=== PATIENT | female | born 1960 | race Caucasian/White ===

== ENCOUNTER → 2020-03-07 16:23 | Outpatient (BNVA) | payer OTHER, SELFPAY | PROVIDERS: PCP Nurse Practitioner Family; Visit Provider Internal Medicine | DX: J84.10 Pulmonary fibrosis, unspecified (principal); J44.9 Chronic obstructive pulmonary disease, unspecified; R91.1 Solitary pulmonary nodule; F17.200 Nicotine dependence, unspecified, uncomplicated; Z88.0 Allergy status to penicillin | CPT/HCPCS: 99212 ==

== ENCOUNTER 2020-03-08 15:25 | Outpatient (REF) | payer OTHER, SELFPAY ==
--- NOTE | 2020-03-08 15:29 | MM_ITS ---
EXAMINATION: MM SCREENING DIGITAL BREAST TOMOSYNTHESIS, BILATERAL CLINICAL INFORMATION: Screening. Asymptomatic. Family history breast cancer in maternal grandmother, 50. The lifetime risk of breast cancer based on the Tyrer-Cuzick Model is 9%. COMPARISON: Mammography: 08/15/2018, 08/11/2017 TECHNIQUE: Digital breast tomosynthesis is performed in both the craniocaudal and mediolateral oblique views along with computer-aided detection (CAD). Synthesized 2D images are generated from the tomosynthesis. Additional right MLO view is provided. FINDINGS: There are scattered areas of fibroglandular density (ACR BI-RADS breast composition Category b). There are no significant masses, abnormal calcifications, or other abnormalities. The axilla and skin contours are unremarkable. MM/MM tomosynthesis screening BI IMPRESSION: No mammographic evidence of malignancy. ASSESSMENT: BI-RADS 1: Negative RECOMMENDATION: Routine annual mammography screening. This patient's information was entered into a reminder system with a target due date for their next mammogram.
== END 2020-03-08 15:26 | disposition home or self-care (01) ==
LOC: HO.MAMMO 15:25
PROVIDERS: PCP Nurse Practitioner Family; Visit Provider Nurse Practitioner Family
DX: Z12.31 Encounter for screening mammogram for malignant neoplasm of breast (principal)
CPT/HCPCS: 77063; 77067

== ENCOUNTER 2020-03-11 14:43 | Outpatient (REF) | payer OTHER, SELFPAY ==
[2020-03-11 16:04] LABS: MANUAL DIFF FLAG NO
[2020-03-11 16:10] LABS: Basophils Absolute Auto 0.1 X10*3/uL (0.0-0.2); Basophils Percent Auto 0.9 % (0-2); Eosinophils Absolute Auto 0.2 X10*3/uL (0.0-0.4); Eosinophils Percent Auto 1.9 % (0-4); Hematocrit 36.1 % (37-47); Hemoglobin 11.7 g/dl (12.0-16.0); Imm Gran Abs Auto 0.02 X10*3/uL (0.00-0.03); Imm Gran Pct Auto 0.2 % (0.0-0.4); Lymphocytes Absolute Auto 2.9 X10*3/uL (1.2-4.9); Lymphocytes Percent Auto 33.7 % (20-40); Mean Corpuscular HGB Conc 32.4 g/dl (31.0-35.0); Mean Corpuscular Hemoglobin 30.7 pg (27.0-33.0); Mean Corpuscular Volume 94.8 fL (80-98); Mean Platelet Volume 8.7 fL (9.4-12.3); Monocytes Absolute Auto 0.5 X10*3/uL (0.1-1.2); Monocytes Percent Auto 6.1 % (2-11); Neutrophils Absolute Auto 4.9 X10*3/uL (2.0-8.3); Neutrophils Percent Auto 57.2 % (45-73); Platelet Count 320 X10*3/uL (160-400); Red Blood Count 3.81 X10*6/uL (4.20-5.50); Red Cell Distribution Width 13.4 % (11.0-16.0); White Blood Count 8.5 X10*3/uL (4.8-10.8)
[2020-03-11 16:32] LABS: Anion Gap 12 (12-20); Blood Urea Nitrogen 10 mg/dL (9-16); Calcium 9.6 mg/dL (8.4-10.2); Carbon Dioxide 29 mmol/L (22-29); Chloride 101 mmol/L (96-108); Estimated Glomerular Filt Rate 57; Glucose Fasting 109 mg/dL (60-99); Potassium 4.7 mmol/l (3.3-5.1); Sodium 137 mmol/L (135-145)
== END 2020-03-11 14:44 | disposition home or self-care (01) ==
LOC: HO.LAB 14:43
PROVIDERS: Visit Provider Nurse Practitioner Family
DX: F11.99 Opioid use, unspecified with unspecified opioid-induced disorder (principal); E22.2 Syndrome of inappropriate secretion of antidiuretic hormone; J44.9 Chronic obstructive pulmonary disease, unspecified
CPT/HCPCS: 36415; 80048; 80305; 85025; 99212

== ENCOUNTER 2020-04-09 15:57 | Outpatient (REF) | payer OTHER, SELFPAY ==
--- NOTE | 2020-04-09 15:59 | CT_ITS ---
EXAMINATION: CT CHEST WITHOUT CONTRAST CLINICAL INFORMATION: Follow-up small pulmonary nodules. COMPARISON: CT chest 02/24/2018. Ultrasound abdomen 10/05/2018 and TECHNIQUE: Multidetector volumetric CT imaging of the chest was done. Axial MIP volume rendering provided. Sagittal and coronal reformatted images were obtained. This CT examination was performed using dose optimization techniques as appropriate, variously including the following: *Automated exposure control *Adjustment of mA and/or kV according to patient size (this includes techniques or standardized protocols for targeted exams where dose is matched to indication/reason for exam; i.e. extremities or head) *Use of iterative reconstruction technique DLP: 110 mGy-cm FINDINGS: CLOSED CIRCUIT SCREEN WATCHER: Unremarkable. LUNGS: There is paraseptal emphysema without any acute consolidation. Again visualized are bilateral small pulmonary nodules. There are 3 mm two nodules adjacent to each other left lower lobe on axial image 38/4 which are stable. A 5 mm nodule within the left major fissure on axial image 260/7 is stable. No large or new nodules seen. MEDIASTINUM: The thyroid lobes are symmetrical and normal. The central trachea and bronchi widely patent. The heart size and great vessels are normal caliber. There is a 1.3 cm precarinal lymph node which is stable. There is no pericardial effusion. PLEURA: There is no pleural effusion. No pleural mass or thickening. AXILLA: No lymphadenopathy. UPPER ABDOMEN: Visualized spleen, pancreas and bilateral adrenal glands are unremarkable incidentally noted is a dilated common bile duct, incompletely visualized. It is more prominent than the last exam. OSSEOUS STRUCTURES: No lytic or sclerotic process seen. There is mild ventral spondylosis mid dorsal spine. CT/CT chest wo con IMPRESSION: Paraseptal emphysema and multiple bilateral small pulmonary nodules are stable. Small shotty lymph nodes in the mediastinum including 1.3 cm short axis precarinal lymph node appears stable. Prominent common bile duct partially visualized. A dilated CBD was seen on previous ultrasound exam 10/05/2018.
== END 2020-04-09 15:58 | disposition home or self-care (01) ==
LOC: HO.CT 15:57
PROVIDERS: Visit Provider Internal Medicine
DX: R91.8 Other nonspecific abnormal finding of lung field (principal); J84.10 Pulmonary fibrosis, unspecified; J44.9 Chronic obstructive pulmonary disease, unspecified
CPT/HCPCS: 71250

== ENCOUNTER → 2020-04-11 14:46 | Outpatient (BNVA) | payer OTHER, SELFPAY | PROVIDERS: PCP Nurse Practitioner Family; Referring Provider Nurse Practitioner Family; Visit Provider Internal Medicine Cardiovascular Disease | DX: I10 Essential (primary) hypertension (principal) | CPT/HCPCS: 93005; 99202 ==

== ENCOUNTER → 2020-05-07 15:29 | Outpatient (BNVA) | payer OTHER, SELFPAY | PROVIDERS: PCP Nurse Practitioner Family; Visit Provider Internal Medicine | DX: F11.20 Opioid dependence, uncomplicated (principal) | CPT/HCPCS: 80305; 99212 ==

== ENCOUNTER → 2020-07-09 15:12 | Outpatient (BNVA) | payer OTHER, SELFPAY | PROVIDERS: PCP Nurse Practitioner Family; Visit Provider Internal Medicine | DX: F11.99 Opioid use, unspecified with unspecified opioid-induced disorder (principal) | CPT/HCPCS: 80305; 99212 ==

== ENCOUNTER → 2020-09-03 14:48 | Outpatient (BNVA) | payer OTHER, SELFPAY | PROVIDERS: Visit Provider Internal Medicine | DX: F11.99 Opioid use, unspecified with unspecified opioid-induced disorder (principal) | CPT/HCPCS: 80305; 99212 ==

== ENCOUNTER → 2020-10-29 14:29 | Outpatient (BNVA) | payer OTHER, SELFPAY | PROVIDERS: Visit Provider Internal Medicine | DX: Z51.81 Encounter for therapeutic drug level monitoring (principal); F11.99 Opioid use, unspecified with unspecified opioid-induced disorder | CPT/HCPCS: 80305; 99212 ==

== ENCOUNTER → 2020-12-24 14:49 | Outpatient (BNVA) | payer OTHER, SELFPAY | PROVIDERS: PCP Internal Medicine; Visit Provider Internal Medicine | DX: Z51.81 Encounter for therapeutic drug level monitoring (principal); F11.90 Opioid use, unspecified, uncomplicated | CPT/HCPCS: 80305; 99212 ==

== ENCOUNTER 2021-01-31 14:02 | Outpatient (REF) | payer OTHER, SELFPAY ==
--- NOTE | ~2021-01-31 | MM_ITS ---
EXAMINATION: MM DIAGNOSTIC DIGITAL BREAST TOMOSYNTHESIS, BILATERAL Targeted left breast ultrasound CLINICAL INFORMATION: Mastodynia. Left breast lump 3:00 position 3 cm from nipple for one year The lifetime risk of breast cancer based on the Tyrer-Cuzick Model is 8.6%. COMPARISON: Mammography: March 08, 2020 and studies dating back to October 16, 2014 TECHNIQUE: Digital breast tomosynthesis is performed in both the craniocaudal and mediolateral oblique views along with computer-aided detection (CAD). Synthesized 2D images are generated from the tomosynthesis. Targeted left breast ultrasound FINDINGS: There are scattered areas of fibroglandular density (ACR BI-RADS breast composition Category b). There are no significant masses, abnormal calcifications, or other abnormalities. Targeted ultrasound evaluation of the left breast in region of palpable abnormality did not demonstrate any abnormal cystic or solid mass. No edematous changes seen. No abnormal distal sound shadowing identified. Results are discussed with the patient at time of visit. MM/MM tomosynthesis diagnostic BI IMPRESSION: There are no significant changes from prior study. No mammographic or ultrasound findings to suggest malignancy. ASSESSMENT: BI-RADS 1: Negative RECOMMENDATION: Routine annual mammography screening due in 12 months. Clinical management for palpable abnormality not seen on imaging. This patient's information was entered into a reminder system with a target due date for their next mammogram.
--- NOTE | ~2021-01-31 | US_ITS ---
EXAMINATION: US DIAGNOSTIC ULTRASOUND BREAST, LEFT CLINICAL INFORMATION: Left breast lump 6:00 position. COMPARISON: Mammography of same day and studies dating back to October 16, 2014. TECHNIQUE: Ultrasound of the breast is performed with real-time leon scale imaging and color Doppler. FINDINGS: There is no focal suspicious finding. There is no solid mass, architectural abnormality, duct ectasia, or edema in the soft tissue planes. Results are discussed with the patient at time of visit. US/US breast LT limited IMPRESSION: No mammographic or ultrasound findings to suggest malignancy. ASSESSMENT: BI-RADS 1: Negative RECOMMENDATION: Routine annual mammography screening due in 12 months. This patient's information was entered into a reminder system with a target due date for their next mammogram.
== END 2021-01-31 14:03 | disposition home or self-care (01) ==
LOC: HO.MAMMO 14:02
PROVIDERS: PCP Internal Medicine; Visit Provider Internal Medicine
DX: N64.4 Mastodynia (principal); N63.25 Unspecified lump in the left breast, overlapping quadrants
CPT/HCPCS: 76642; 77062; 77066

== ENCOUNTER → 2021-02-14 14:23 | Outpatient (BNVA) | payer OTHER, SELFPAY | PROVIDERS: Visit Provider Internal Medicine | DX: Z51.81 Encounter for therapeutic drug level monitoring (principal); F11.90 Opioid use, unspecified, uncomplicated | CPT/HCPCS: 80305; 99212 ==

== ENCOUNTER 2021-02-25 12:54 | Outpatient (REF) | payer OTHER, SELFPAY ==
--- NOTE | ~2021-02-25 | MM_ITS ---
EXAMINATION: BONE DENSITOMETRY CLINICAL INDICATION: Age-related osteoporosis without current pathological fracture. COMPARISON: Baseline BD dated 06/11/2015. TECHNIQUE: Using a Where DXA System (software version: 13.1) manufactured by [employer], dual-energy x-ray absorptiometry was performed of the spine and left hip. The images are of good technical quality. Summary results are attached. FINDINGS: AP SPINE L1-L4: Current: BMD 0.894 g/cm2, Z-score -0.9, T-score -2.4, osteopenia, 4.1% increase from baseline (<5% change is not significant). Baseline: BMD 0.859 g/cm2. LEFT FEMUR, NECK: Current: BMD 0.749 g/cm2, Z-score -0.7, T-score -2.1, osteopenia. Baseline: BMD 0.872 g/cm2. LEFT FEMUR, TOTAL: Current: BMD 0.744 g/cm2, Z-score -1.0, T-score -2.1, osteopenia, 9.8% decrease from baseline (<5% change is not significant). Baseline: BMD 0.825 g/cm2. IDENTIFIED RISK FACTORS: Osteoporosis, tobacco use (current smoker), family history (parental hip fracture), history of fracture (adult), menopause, right oophorectomy. HISTORY OF FRACTURE: Shoulder. MEDICATIONS: Vitamin D. MM/XR DEXA axial skeleton IMPRESSION: 1. DIAGNOSIS: Osteopenia based on the lowest T-score value of -2.4 in the lumbar spine applying World Health Organization criteria. 2. 10-YEAR FRACTURE RISK PREDICTION, FRAX: Major osteoporotic fracture (clinical spine, forearm, hip or shoulder) 31.5%. Hip fracture 4.6%. 3. Treatment Recommendations: NOF guidelines recommend consideration for treatment in postmenopausal women and men age 50 and older presenting with the following: -A hip or vertebral (clinical or morphometric) fracture. -T-score less than or equal to -2.5 at the femoral neck or spine after appropriate evaluation to exclude secondary causes. -Low bone mass at the hip or spine and a 10-year fracture probability by FRAX of greater than or equal to 3% for hip fracture or greater than or equal to 20% for major osteoporotic fracture based on the [place] adapted WHO algorithm. 4. Other Recommendations: All treatment decisions require clinical judgment and consideration of individual patient factors, including patient preferences, comorbidities, previous drug use, risk factors not captured in the FRAX model (e.g. frailty, falls, vitamin D deficiency, increased bone turnover, interval significant decline in bone density) and possible under or overestimation of fracture risk by FRAX. Additional medical evaluation for secondary cause of low bone mineral density may be appropriate. FUTURE SCAN RECOMMENDATION: People with diagnosed cases of osteoporosis or at high risk for fracture should have regular bone mineral density tests. For patients eligible for Medicare, routine testing is allowed once every 2 years. The testing frequency can be increased to one year for patients who have rapidly progressing disease, those who are receiving or discontinuing medical therapy to restore bone mass, or have additional risk factors.
== END 2021-02-25 12:55 | disposition home or self-care (01) ==
LOC: HO.MAMMO 12:54
PROVIDERS: Visit Provider Internal Medicine
DX: Z13.820 Encounter for screening for osteoporosis (principal); M81.0 Age-related osteoporosis without current pathological fracture; M85.80 Other specified disorders of bone density and structure, unspecified site; F17.200 Nicotine dependence, unspecified, uncomplicated; Z79.899 Other long term (current) drug therapy; Z78.0 Asymptomatic menopausal state
CPT/HCPCS: 77080

== ENCOUNTER 2021-04-11 14:16 | Outpatient (REF) | payer OTHER, SELFPAY ==
[2021-04-11 15:29] LABS: MANUAL DIFF FLAG NO
[2021-04-11 15:53] LABS: Basophils Absolute Auto 0.1 X10*3/uL (0.0-0.2); Basophils Percent Auto 0.7 % (0-2); Eosinophils Absolute Auto 0.1 X10*3/uL (0.0-0.4); Eosinophils Percent Auto 1.9 % (0-4); Hemoglobin 11.4 g/dl (12.0-16.0); Imm Gran Abs Auto 0.02 X10*3/uL (0.00-0.03); Imm Gran Pct Auto 0.3 % (0.0-0.4); Immature Retic Fraction 7.6 % (3.0-15.9); Lymphocytes Percent Auto 27.1 % (20-40); Mean Corpuscular HGB Conc 33.5 g/dl (31.0-35.0); Mean Corpuscular Hemoglobin 30.4 pg (27.0-33.0); Mean Corpuscular Volume 90.7 fL (80.0-98.0); Mean Platelet Volume 8.9 fL (9.4-12.3); Monocytes Absolute Auto 0.5 X10*3/uL (0.1-1.2); Monocytes Percent Auto 7.5 % (2-11); Neutrophils Absolute Auto 4.5 x10*3/uL (2.0-8.3); Neutrophils Percent Auto 62.5 % (45-73); Platelet Count 284 X10*3/uL (160-400); Red Blood Count 3.75 X10*6/uL (4.20-5.50); Red Cell Distribution Width 12.9 % (11.0-16.0); Retic HGB Equivalent 34.1 pg (30.0-35.0); Reticulocyte Percent 1.7 % (0.5-1.8); Reticulocytes Absolute 0.063 X10*6/uL (0.026-0.095); White Blood Count 7.2 X10*3/uL (4.8-10.8)
[2021-04-11 16:08] LABS: Estimated Average Glucose 111 mg/dL; Hemoglobin A1c % 5.5 %
[2021-04-11 16:17] LABS: Alanine Aminotransferase 22 U/L (0-31); Albumin Level 4.2 g/dL (3.5-5.0); Alkaline Phosphatase 69 U/L (39-117); Anion Gap 12 (12-20); Aspartate Amino Transferase 17 U/L (5-31); Bilirubin Total 0.3 mg/dL (0.0-1.0); Blood Urea Nitrogen 19 mg/dL (9-16); Calcium 9.7 mg/dL (8.4-10.2); Carbon Dioxide 26 mmol/L (22-29); Chloride 103 mmol/L (96-108); Cholesterol 264 mg/dL; Estimated Glomerular Filt Rate > 60; Glucose Random 116 mg/dL (60-115); HDL Cholesterol 54 mg/dL; Iron 61 mcg/dL (30-160); LDL Cholesterol Calculated 188 mg/dl; Magnesium 1.8 mg/dL (1.6-2.6); Percent Iron Saturation 19 % (15-50); Potassium 4.5 mmol/L (3.3-5.1); Sodium 136 mmol/L (135-145); Total Iron Binding Capacity 327 mcg/dL (228-428); Triglycerides 111 mg/dL; Unsaturated Iron Binding 266 ug/dL
[2021-04-11 16:40] LABS: Ferritin 82 ng/mL (10-250); Free T4 (Free Thyroxine) 1.29 ng/dL (0.71-1.85); Thyroid Stimulating Hormone 0.95 uIU/mL (0.32-4.0); Vitamin D 25-OH Total 30.5 ng/mL (>30)
[2021-04-11 17:01] LABS: Folate > 20.0 ng/mL (> or = 4.0); Vitamin B12 561 pg/mL (200-900)
== END 2021-04-11 14:17 | disposition home or self-care (01) ==
LOC: HO.LAB 14:16
PROVIDERS: Absent Provider Internal Medicine; PCP Internal Medicine; Visit Provider Internal Medicine
DX: E78.00 Pure hypercholesterolemia, unspecified (principal); K21.9 Gastro-esophageal reflux disease without esophagitis; F17.210 Nicotine dependence, cigarettes, uncomplicated; F11.20 Opioid dependence, uncomplicated; Z51.81 Encounter for therapeutic drug level monitoring
CPT/HCPCS: 36415; 80053; 80061; 80305; 82306; 82607; 82728; 82746; 83036; 83540; 83735; 84439; 84443; 85025; 85045; 99212

== ENCOUNTER 2021-05-26 17:44 | Outpatient (REF) | payer OTHER, SELFPAY ==
[2021-05-27 05:40] LABS: CT PCR NOT DETECTED (Not Detect.); NG PCR NOT DETECTED (Not Detect.)
[2021-05-27 09:06] LABS: BV Int Neg Control Negative (Negative); BV Int Pos Control Positive (Positive)
[2021-05-30 13:37] LABS: HPV mRNA E6/E7 rflx Not Detected (Not Detected)
== END 2021-05-26 17:45 | disposition home or self-care (01) ==
LOC: HO.LAB 17:44
PROVIDERS: Visit Provider Internal Medicine
DX: Z12.4 Encounter for screening for malignant neoplasm of cervix (principal); Z11.51 Encounter for screening for human papillomavirus (HPV)
CPT/HCPCS: 87480; 87491; 87510; 87591; 87624; 87660; 88142

== ENCOUNTER → 2021-06-16 14:29 | Outpatient (BNVA) | payer OTHER, SELFPAY | PROVIDERS: Visit Provider Internal Medicine | DX: F11.20 Opioid dependence, uncomplicated (principal) | CPT/HCPCS: 80305; 99212 ==

== ENCOUNTER 2021-08-11 13:58 | Outpatient (REF) | payer OTHER, SELFPAY ==
[2021-08-11 15:09] LABS: Anion Gap 9 (12-20); Blood Urea Nitrogen 21 mg/dL (9-16); Calcium 10.5 mg/dL (8.4-10.2); Carbon Dioxide 27 mmol/L (22-29); Chloride 106 mmol/L (96-108); Estimated Glomerular Filt Rate > 60; Glucose Random 116 mg/dL (60-115); Potassium 4.7 mmol/L (3.3-5.1); Sodium 137 mmol/L (135-145)
== END 2021-08-11 13:59 | disposition home or self-care (01) ==
LOC: HO.LAB 13:58
PROVIDERS: PCP Internal Medicine; Visit Provider Psychiatry & Neurology Neurology
DX: F11.20 Opioid dependence, uncomplicated (principal); D35.2 Benign neoplasm of pituitary gland
CPT/HCPCS: 36415; 80048; 80305; 99212

== ENCOUNTER 2021-08-15 13:12 | Outpatient (REF) | payer OTHER, SELFPAY ==
--- NOTE | ~2021-08-15 | MR_ITS ---
MR BRAIN WITHOUT AND WITH CONTRAST CLINICAL INFORMATION: Pituitary adenoma. COMPARISON: Brain MRI February 04, 2018. TECHNIQUE: Multiplanar, multisequence MRI of the brain was obtained before and after the intravenous administration of 3 mL of Gadavist. FINDINGS: There is a 1.1 cm CC by 1 cm TV by 1.1 cm AP mixed hypoenhancing and hyperenhancing lesion within the left aspect of the pituitary gland, likely similar to the February 04, 2018 brain MRI accounting for technical differences. There is also a stable 4 mm hypoenhancing lesion at the junction of the infundibulum and pituitary gland. Infundibulum remains slightly deviated to the right side. No mass effect on the optic nerve apparatus. No cavernous sinus invasion. There is progressive moderate chronic microangiopathy. 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 There is no hydrocephalus, extra-axial surface collection, or herniation. The major flow voids at the skull base are preserved. There is no acute infarct on diffusion-weighted imaging. The cerebellar tonsils are normally positioned. The cerebellum and brainstem are normal. The craniocervical junction is normal. Osseous marrow signal intensity is homogenous. The visualized soft tissues are unremarkable. 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 An additional 0.4 cm hypoenhancing lesion at the junction of the infundibulum and pituitary gland is also unchanged. No mass effect on the optic nerve apparatus. - There is progressive moderate chronic microangiopathy. 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
[2021-08-15 14:37] LABS: Alanine Aminotransferase 18 U/L (0-31); Albumin Level 4.1 g/dL (3.5-5.0); Alkaline Phosphatase 64 U/L (39-117); Anion Gap 10 (12-20); Aspartate Amino Transferase 20 U/L (5-31); Bilirubin Total 0.4 mg/dL (0.0-1.0); Blood Urea Nitrogen 18 mg/dL (9-16); Calcium 10.3 mg/dL (8.4-10.2); Carbon Dioxide 28 mmol/L (22-29); Chloride 103 mmol/L (96-108); Cholesterol 272 mg/dL; Estimated Glomerular Filt Rate 50; Glucose Random 127 mg/dL (60-115); HDL Cholesterol 51 mg/dL; LDL Cholesterol Calculated 201 mg/dl; Potassium 4.8 mmol/L (3.3-5.1); Sodium 136 mmol/L (135-145); Triglycerides 101 mg/dL
== END 2021-08-15 13:13 | disposition home or self-care (01) ==
LOC: HO.MRI 13:12
PROVIDERS: PCP Internal Medicine; Visit Provider Psychiatry & Neurology Neurology
DX: D35.2 Benign neoplasm of pituitary gland (principal); R73.01 Impaired fasting glucose; E78.00 Pure hypercholesterolemia, unspecified
CPT/HCPCS: 36415; 70553; 80053; 80061; A9585

== ENCOUNTER 2021-08-27 14:34 | Outpatient (REF) | payer OTHER, SELFPAY ==
[2021-08-29 02:26] LABS: Prolactin 9.7 ng/mL
== END 2021-08-27 14:35 | disposition home or self-care (01) ==
LOC: HO.LAB 14:34
PROVIDERS: PCP Internal Medicine; Visit Provider Psychiatry & Neurology Neurology
DX: D35.2 Benign neoplasm of pituitary gland (principal)
CPT/HCPCS: 36415; 84146

== ENCOUNTER → 2021-10-03 14:10 | Outpatient (BNVA) | payer OTHER, SELFPAY | PROVIDERS: Visit Provider Internal Medicine | DX: Z51.81 Encounter for therapeutic drug level monitoring (principal); F11.20 Opioid dependence, uncomplicated | CPT/HCPCS: 80305; 99212 ==

== ENCOUNTER → 2021-11-28 14:08 | Outpatient (BNVA) | payer OTHER, SELFPAY | PROVIDERS: Visit Provider Internal Medicine | DX: Z51.81 Encounter for therapeutic drug level monitoring (principal); F11.20 Opioid dependence, uncomplicated | CPT/HCPCS: 80305; 99212 ==

== ENCOUNTER 2022-01-27 15:06 | Outpatient (REF) | payer OTHER, SELFPAY ==
[2022-01-27 16:33] LABS: Estimated Average Glucose 111 mg/dL; Hemoglobin A1c % 5.5 %
[2022-01-27 16:43] LABS: Alanine Aminotransferase 16 U/L (0-31); Albumin Level 4.2 g/dL (3.5-5.0); Alkaline Phosphatase 71 U/L (39-117); Anion Gap 14 (12-20); Aspartate Amino Transferase 16 U/L (5-31); Bilirubin Total 0.2 mg/dL (0.0-1.0); Blood Urea Nitrogen 26 mg/dL (9-16); Calcium 9.6 mg/dL (8.4-10.2); Carbon Dioxide 26 mmol/L (22-29); Chloride 106 mmol/L (96-108); Cholesterol 203 mg/dL; Estimated Glomerular Filt Rate > 60; Glucose Random 95 mg/dL (60-115); HDL Cholesterol 60 mg/dL; LDL Cholesterol Calculated 131 mg/dl; Potassium 4.9 mmol/L (3.3-5.1); Sodium 141 mmol/L (135-145); Total Protein 6.8 g/dL (6.5-8.0); Triglycerides 64 mg/dL
[2022-01-27 17:04] LABS: Free T4 (Free Thyroxine) 1.11 ng/dL (0.71-1.85); Thyroid Stimulating Hormone 0.88 uIU/mL (0.32-4.0)
== END 2022-01-27 15:07 | disposition home or self-care (01) ==
LOC: HO.LAB 15:06
PROVIDERS: PCP Internal Medicine; Visit Provider Internal Medicine
DX: F11.20 Opioid dependence, uncomplicated (principal); E78.00 Pure hypercholesterolemia, unspecified; R73.09 Other abnormal glucose; Z51.81 Encounter for therapeutic drug level monitoring; Z79.899 Other long term (current) drug therapy
CPT/HCPCS: 36415; 80053; 80061; 80305; 83036; 84439; 84443; 99212

== ENCOUNTER → 2022-03-30 13:49 | Outpatient (BNVA) | payer OTHER, SELFPAY | PROVIDERS: PCP Internal Medicine; Visit Provider Internal Medicine | DX: Z51.81 Encounter for therapeutic drug level monitoring (principal); F11.20 Opioid dependence, uncomplicated | CPT/HCPCS: 99212 ==

== ENCOUNTER → 2022-05-25 13:08 | Outpatient (BNVA) | payer OTHER, SELFPAY | PROVIDERS: PCP Internal Medicine; Visit Provider Nurse Practitioner Psychiatric/Mental Health | DX: Z51.81 Encounter for therapeutic drug level monitoring (principal); F11.20 Opioid dependence, uncomplicated | CPT/HCPCS: 80305; 99212 ==

== ENCOUNTER → 2022-07-22 12:51 | Outpatient (BNVA) | payer OTHER, SELFPAY | PROVIDERS: PCP Internal Medicine; Visit Provider Nurse Practitioner Psychiatric/Mental Health | DX: Z51.81 Encounter for therapeutic drug level monitoring (principal); F11.20 Opioid dependence, uncomplicated | CPT/HCPCS: 80305; 99212 ==

== ENCOUNTER → 2022-09-16 14:12 | Outpatient (BNVA) | payer OTHER, SELFPAY | PROVIDERS: PCP Internal Medicine; Visit Provider Nurse Practitioner Psychiatric/Mental Health | DX: Z51.81 Encounter for therapeutic drug level monitoring (principal); F11.20 Opioid dependence, uncomplicated | CPT/HCPCS: 80305; 99212 ==

== ENCOUNTER 2022-10-09 15:01 | Outpatient (REF) | payer OTHER, SELFPAY ==
--- NOTE | ~2022-10-09 | XR_ITS ---
EXAMINATION: XR SHOULDER, RIGHT CLINICAL INFORMATION: Pain COMPARISON: None available. TECHNIQUE: AP external rotation, Grashey, scapular Y, and axillary views of the right shoulder. FINDINGS: Bone alignment is normal. No fracture or dislocation. Mild arthritis at the glenohumeral joint with small osteophytes. The acromioclavicular joint is normal. Soft tissues are normal. XR/XR shoulder RT min 2V IMPRESSION: Mild arthritis at the glenohumeral joint.
[2022-10-09 15:15] LABS: MANUAL DIFF FLAG NO
[2022-10-09 15:35] LABS: Basophils Absolute Auto 0.1 X10*3/uL (0.0-0.2); Basophils Percent Auto 0.9 % (0-2); Eosinophils Absolute Auto 0.2 X10*3/uL (0.0-0.4); Eosinophils Percent Auto 3.1 % (0-4); Imm Gran Abs Auto 0.02 X10*3/uL (0.00-0.03); Imm Gran Pct Auto 0.3 % (0.0-0.4); Immature Retic Fraction 9.4 % (3.0-15.9); Lymphocytes Absolute Auto 2.6 X10*3/uL (1.2-4.9); Lymphocytes Percent Auto 34.8 % (20-40); Mean Corpuscular HGB Conc 32.4 g/dl (31.0-35.0); Mean Corpuscular Hemoglobin 29.9 pg (27.0-33.0); Mean Corpuscular Volume 92.3 fL (80.0-98.0); Mean Platelet Volume 9.3 fL (9.4-12.3); Monocytes Absolute Auto 0.6 X10*3/uL (0.1-1.2); Monocytes Percent Auto 8.5 % (2-11); Neutrophils Absolute Auto 3.9 x10*3/uL (2.0-8.3); Neutrophils Percent Auto 52.4 % (45-73); Platelet Count 314 X10*3/uL (160-400); Red Blood Count 4.01 X10*6/uL (4.20-5.50); Red Cell Distribution Width 14.3 % (11.0-16.0); Retic HGB Equivalent 35.6 pg (30.0-35.0); Reticulocyte Percent 1.5 % (0.5-1.8); Reticulocytes Absolute 0.062 X10*6/uL (0.026-0.095); White Blood Count 7.4 X10*3/uL (4.8-10.8)
[2022-10-09 15:48] LABS: Estimated Average Glucose 111 mg/dL; Hemoglobin A1c % 5.5 %
[2022-10-09 16:06] LABS: Alanine Aminotransferase 16 U/L (0-31); Albumin Level 4.1 g/dL (3.5-5.0); Alkaline Phosphatase 69 U/L (39-117); Anion Gap 13 (12-20); Aspartate Amino Transferase 17 U/L (5-31); Bilirubin Total 0.5 mg/dL (0.0-1.0); Blood Urea Nitrogen 24 mg/dL (9-16); Calcium 10.2 mg/dL (8.4-10.2); Carbon Dioxide 21 mmol/L (22-29); Chloride 109 mmol/L (96-108); Cholesterol 196 mg/dL; Estimated Glomerular Filt Rate > 60; Glucose Random 120 mg/dL (60-115); HDL Cholesterol 58 mg/dL; Iron 93 mcg/dL (30-160); LDL Cholesterol Calculated 125 mg/dl; Percent Iron Saturation 33 % (15-50); Potassium 4.8 mmol/L (3.3-5.1); Sodium 138 mmol/L (135-145); Total Iron Binding Capacity 280 mcg/dL (228-428); Total Protein 6.8 g/dL (6.5-8.0); Triglycerides 66 mg/dL; Unsaturated Iron Binding 187 ug/dL
[2022-10-09 16:34] LABS: Folate 10.2 ng/mL (> or = 4.0); Thyroid Stimulating Hormone 1.09 uIU/mL (0.32-4.0); Vitamin B12 469 pg/mL (200-900)
== END 2022-10-09 15:02 | disposition home or self-care (01) ==
LOC: HO.XRAY 15:01
PROVIDERS: PCP Internal Medicine; Visit Provider Internal Medicine
DX: M25.511 Pain in right shoulder (principal); R73.01 Impaired fasting glucose; K21.9 Gastro-esophageal reflux disease without esophagitis; E78.00 Pure hypercholesterolemia, unspecified
CPT/HCPCS: 36415; 73030; 80053; 80061; 82607; 82746; 83036; 83540; 84443; 85025; 85045

== ENCOUNTER → 2022-11-09 14:03 | Outpatient (BNVA) | payer OTHER, SELFPAY | PROVIDERS: PCP Internal Medicine; Visit Provider Nurse Practitioner Psychiatric/Mental Health | DX: Z51.81 Encounter for therapeutic drug level monitoring (principal); F11.20 Opioid dependence, uncomplicated | CPT/HCPCS: 99212 ==

== ENCOUNTER 2022-12-16 14:19 | Outpatient (AMB) | payer OTHER, SELFPAY ==
--- NOTE | 2022-12-16 14:21 | A.OFFVIS_ITS ---
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 She describes her pains as sharp and severe in nature. Her pains have gotten worse over the last few years in spite of continued non operative treatments. The patient states that her neck pain will radiate down her right arm to her right hand. She also reports weakness in her right upper extremity. She has done physical therapy for 12 weeks over the last 6 months which aggravated her symptoms. She has also tried Tylenol and anti-inflammatory medicines which gave her minimal relief. Allergies penicillin G [PENICILLIN G] Allergy (Unknown, Verified 12/16/22 14:25) [facility] Medical History Abnormal blood sugar Abnormal EKG ADH disorder Anxiety and depression Breast mass, left Breast pain, right Cervical cancer screening COPD (chronic obstructive pulmonary disease) Ear abrasion Hemorrhoid Hypercholesterolemia Left ear pain Nail fungus Onychomycosis Opioid use disorder Osteoarthritis, hip, bilateral Pulmonary fibrosis Pulmonary nodules/lesions, multiple Vitamin D deficiency Surgical History History of section History of vocal cord polypectomy Hx of removal of ovary Family History Father Stroke Mother Hypertension Heart problem Stroke DDD (degenerative disc disease) Brother Heart attack Social History Housing: House Alcohol intake: current Patient Tobacco Use Status: Current everyday Tobacco user Tobacco use type: Cigarette Cigarettes Per Day: 10 e-Cigarette/Vaping Use: Never Used Second Hand Smoke Exposure: Yes service: No Current occupational status: disabled Cognitive needs: No Hearing needs: No Vision needs: Yes Physical Exam Vital Signs: BMI result Body Mass Index 25.0 Neck Other: Cervical spine examination shows right-sided paraspinal muscle tenderness, pain with range of motion, positive Spurling's test, 4/5 strength with testing of her right biceps muscle when compared to 5/5 strength on her left side Extrem Other: Right shoulder examination shows decreased range of motion when compared to her left shoulder, pain with range of motion, 4+ out of 5 strength with supraspinatus testing, positive impingement signs, tenderness over her acromioclavicular joint, no instability Office Procedures Joint Injection/Drain Joint Injection/Drain Primary Site: right shoulder Prep: site was prepped using aseptic technique Injected: 40 mg of, Kenalog and 1% plain lidocaine Procedure: The patient tolerated the procedure well Coding 25274 - Large joint Procedure code (CPT) selection complete Results Reviewed Results Reviewed: 12/16/22 15:10 Lidocaine HCl 2 % MPF [Xylocaine 2 % MPF] 5 ml .ROUTE .STK-MED ONE Triamcinolone Acetonide [Kenalog-40] 40 mg .ROUTE .STK-MED ONE X-rays of the patient's right shoulder show mild to moderate glenohumeral joint degenerative changes, a type 2 acromion, no acute bony abnormalities Assessment & Plan Assessment & Plan (1) Neck pain: Code(s): M54.2 - Cervicalgia (2) Impingement of right shoulder: Code(s): M25.811 - Other specified joint disorders, right shoulder Plan Ms. Brock presents with progressively worsening cervical spine pain with associated right upper extremity weakness possibly due to cervical stenosis or disc herniation. Thus, I will send her for an MRI of her cervical spine for further evaluation. She will contact me prior to the imaging study should her symptoms worsen in any way. The patient also has right shoulder pain due to impingement syndrome and glenohumeral joint arthritis. I had a lengthy discussion with the patient regarding the treatment options. She wishes to hold off on surgery for as long as possible. The risks and benefits of a right shoulder cortisone injection were discussed at length with the patient. The patient wished to proceed. She tolerated the injection well. She will continue with her home stretching program to prevent stiffness. Feel free to call me at any time should questions regarding her orthopedic management arise. Thank you very much for asking me to see this very friendly patient. I spent 23 minutes in reviewing the patient's records and imaging studies, seeing the patient and documenting in the medical record. Orders: Orders MR cervical spine wo con 12/16/22 M54.2 - Cervicalgia AMB Joint Injection/Aspiration 12/16/22 M25.811 - Other specified joint disorders, right shoulder Coding Level of Care Code New Pt Level 2 (26501) Diagnoses Neck pain M54.2 Impingement of right shoulder M25.811 CPT Codes Coding - 97003 Large joint: 67217 - Large joint ([id number])
[2022-12-16 14:23] VITALS: BMI 25.0
== END 2022-12-16 15:20 | disposition home or self-care (01) ==
PROVIDERS: PCP Internal Medicine; Visit Provider Orthopaedic Surgery
DX: M54.2 Cervicalgia (principal); M25.811 Other specified joint disorders, right shoulder; M75.41 Impingement syndrome of right shoulder
CPT/HCPCS: 20610; 99204; 99213

== ENCOUNTER → 2022-12-16 14:19 | Outpatient (BNVA) | payer OTHER, SELFPAY | PROVIDERS: PCP Internal Medicine; Visit Provider Orthopaedic Surgery | DX: M25.811 Other specified joint disorders, right shoulder (principal); M54.2 Cervicalgia | CPT/HCPCS: 20610; 99212; J3301 ==

== ENCOUNTER 2023-02-03 14:36 | Outpatient (AMB) | payer OTHER, SELFPAY ==
[2023-02-03 14:41] VITALS: BP 106/78; PULSE 93; O2SAT 97
--- NOTE | 2023-02-03 14:41 | MHC.OFFVIS ---
Intake Vital Signs 02/03/23 14:41 BP 106/78 Blood Pressure Location Lt radial Position Sitting Pulse 93 Pulse Source Pulse Oximeter Pulse Oximetry (%) 97 Oxygen Delivery Method Room Air Intake Visit Reasons: mat visit Intake Note: the patient presents for a mat visit Chief Medical Officer Required: No Allergies penicillin G [PENICILLIN G] Allergy (Unknown, Verified 02/03/23 14:42) [facility] Do you need a note to return to daycare/school/sports/work: No HPI mat visit HPI Details Patient presents for follow up Sad affect, had to put her dog down on Wednesday Otherwise doing well. Doing well with current suoxone dose. No questions or concerns at this time [facility] Medical History Abnormal blood sugar Abnormal EKG ADH disorder Anxiety and depression Breast mass, left Breast pain, right Cervical cancer screening COPD (chronic obstructive pulmonary disease) Ear abrasion Hemorrhoid Hypercholesterolemia Left ear pain Nail fungus Onychomycosis Opioid use disorder Osteoarthritis, hip, bilateral Pulmonary fibrosis Pulmonary nodules/lesions, multiple Vitamin D deficiency Surgical History History of section History of vocal cord polypectomy Hx of removal of ovary Family History Father Stroke Mother Hypertension Heart problem Stroke DDD (degenerative disc disease) Brother Heart attack Social History Housing: House Alcohol intake: current Patient Tobacco Use Status: Current everyday Tobacco user Tobacco use type: Cigarette Cigarettes Per Day: 10 e-Cigarette/Vaping Use: Never Used Second Hand Smoke Exposure: Yes service: No Current occupational status: disabled Cognitive needs: No Hearing needs: No Vision needs: Yes Review of Systems Const Reports as per HPI and Reports no additional complaints Physical Exam Vital Signs: Last Vital Signs Pulse 93 02/03/23 14:41 BP 106/78 02/03/23 14:41 Pulse Ox 97 02/03/23 14:41 Oxygen Delivery Method Room Air 02/03/23 14:41 Const General: cooperative, no acute distress and alert Nutritional Appearance: average body habitus Orientation/consciousness: patient oriented x3 Limitations: no limitations Neuro General: patient oriented x3 Psych Appearance: grossly normal Mental Status: mental status grossly normal Speech and movement: Normal speech and movement present Affect: normal affect Attitude: cooperative Thought process: Normal thought process present Thought content: Normal thought content present Insight: Good insight present (Psych) Judgement: Good judgement present (Psych) Assessment & Plan Assessment & Plan (1) Opioid use disorder: Code(s): F11.99 - Opioid use, unspecified with unspecified opioid-induced disorder Plan: continue suboxone at current dose follow up 3 months Medications: Refilled buprenorphine-naloxone 8-2 mg (Suboxone) 1 film sublingual TID 90 ea 2RF 30 days Coding Level of Care Code Est Pt Level 3 (88450) Diagnoses Opioid use disorder F11.99
== END 2023-02-03 15:23 | disposition home or self-care (01) ==
LOC: HO.HCC 14:36
PROVIDERS: PCP Internal Medicine; Visit Provider Nurse Practitioner Psychiatric/Mental Health
DX: F11.99 Opioid use, unspecified with unspecified opioid-induced disorder (principal)
CPT/HCPCS: 99213

== ENCOUNTER → 2023-02-03 14:36 | Outpatient (BNVA) | payer OTHER, SELFPAY | PROVIDERS: PCP Internal Medicine; Visit Provider Nurse Practitioner Psychiatric/Mental Health | DX: F11.20 Opioid dependence, uncomplicated (principal); F17.210 Nicotine dependence, cigarettes, uncomplicated; Z51.81 Encounter for therapeutic drug level monitoring; Z79.899 Other long term (current) drug therapy | CPT/HCPCS: 99212 ==

== ENCOUNTER 2023-02-12 13:52 | Outpatient (AMB) | payer OTHER, SELFPAY ==
[2023-02-12 13:56] VITALS: BP 152/90; PULSE 88; O2SAT 96; BMI 25.4
--- NOTE | 2023-02-12 13:56 | A.OFFPC_ITS ---
Vital Signs 02/12/23 13:56 02/12/23 14:16 Height 5 ft Weight 130 lb BMI 25.4 BP 152/90 H 138/84 Blood Pressure Location Lt brachial Lt brachial Position Sitting Sitting Pulse 88 Pulse Source Pulse Oximeter Temp Source Skin Pulse Oximetry (%) 96 Oxygen Delivery Method Room Air Intake Visit Reasons: Missed appt 02/11/[address] Chris Intake Note: Patient is here to follow up Disability Rater Required: No Allergies penicillin G [PENICILLIN G] Allergy (Unknown, Verified 02/12/23 14:06) RASH Medication List - Last Reconciled 02/12/23 by JUANIS Silveira albuterol sulfate 90 mcg/actuation (ProAir HFA) 2 puffs inhalation Q4-6H PRN 30 days alprazolam 1 mg PO DAILY PRN atorvastatin 40 mg PO DAILY 90 days blood sugar diagnostic (FreeStyle Lite Strips) As directed check the BS QD blood-glucose meter (FreeStyle Lite Meter kit) As directed buprenorphine-naloxone 8-2 mg (Suboxone) 1 film sublingual TID 30 days cholecalciferol (vitamin D3) 25 mcg PO DAILY dextroamphetamine-amphetamine 20 mg (Adderall) 20 mg PO BID fexofenadine (Vanessa Allergy) 180 mg PO DAILY fluticasone propionate 50 mcg/actuation (Flonase Allergy Relief) 2 sprays intranasal DAILY hydrocortisone 2.5% (Proctosol HC) 1 appl HI BID-QID PRN hydrocortisone 2.5% (Proctosol HC) 1 appl HI BID-QID PRN hydroxyzine HCl 100 mg PO BEDTIME labetalol 100 mg PO BID 90 days lancets (FreeStyle Lancets) As directed check BS QD lidocaine 4% (Aspercreme (lidocaine)) 1 patch topical DAILY PRN lisinopril 5 mg PO DAILY nicotine (polacrilex) 2 mg buccal Q2H omeprazole 20 mg PO DAILY 90 days terbinafine HCl 250 mg PO DAILY 12 weeks trazodone 200 mg PO BEDTIME Tobacco use date assessed: 02/12/23 Dental Screening Dental Screen Date: 02/12/23 Did you have a dental visit in the last 12 months?: No Did you have a dental problem in the last 6 months where you did not have access to dental care?: No HPI Missed appt 02/11/[address] Chris HPI Details Patient is a 63-year-old female who presents today to follow-up on cholesterol and impaired glucose tolerance. Patient of Dr. Chris. Medical history significant for COPD ADH disorder-followed by Psychiatry, opioid use disorder- followed by comprehensive care clinic on Suboxone, hypercholesterolemia, tobacco abuse, GERD, anxiety, right shoulder pain - patient reports that her insurance will not cover lidocaine patch 4% and she would like to have lidocaine patch 5% instead. Patient reports that she is compliant with medications. Patient denies shortness of breath or chest pain. Patient reports worse acid reflux at night, GERD is not stable with omeprazole daily in the morning. Patient reports that she also went to wounds and she did see a lesion on her abdomen, she did not see tick would like Lyme disease blood work. [facility] Medical History Left ear pain Abnormal blood sugar Ear abrasion Cervical cancer screening Breast pain, right Breast mass, left Hemorrhoid Onychomycosis Osteoarthritis, hip, bilateral Vitamin D deficiency Anxiety and depression Hypercholesterolemia Opioid use disorder Abnormal EKG Nail fungus ADH disorder Pulmonary nodules/lesions, multiple Pulmonary fibrosis COPD (chronic obstructive pulmonary disease) Surgical History History of vocal cord polypectomy Hx of removal of ovary History of section Family History Father Stroke Mother Hypertension Heart problem Stroke DDD (degenerative disc disease) Brother Heart attack Social History Housing: House Alcohol intake: current Patient Tobacco Use Status: Current everyday Tobacco user Tobacco use type: Cigarette Cigarettes Per Day: 10 e-Cigarette/Vaping Use: Never Used Second Hand Smoke Exposure: Yes service: No Current occupational status: disabled Cognitive needs: No Hearing needs: No Vision needs: Yes Questionnaire Thrive Questionnaire Date Thrive assessed: 07/09/22 AUDIT C Alcohol Use Questionnaire (AUDIT-C) 1. How often do you have a drink containing alcohol?: Monthly or less 2. How many drinks containing alcohol do you have on a typical day when you are drinking?: 1 or 2 3. How often do you have six or more drinks on one occasion?: Never Total Score: 1 Score Reviewed/Action Taken: No ALBERTO-7 AMB Questionnaire ALBERTO-7 Date ALBERTO - 7 assessed: 07/09/22 Source: Developed by Drs. Dean Real, Shireen Godfrey, Mj Zuñiga and colleagues, with an educational ramón from [employer]. Review of Systems Const Denies body aches, Denies chills, Denies fever(s) and Denies headache(s) Eyes Denies change in vision ENT Denies dizziness, Denies otalgia, Denies headache(s), Denies nasal discharge, Denies sinus pain and Denies sore throat Card Denies chest pain, Denies edema, Denies lightheadedness and Denies dyspnea Resp Denies cough and Denies dyspnea GI Denies constipation, Reports heartburn, Denies diarrhea, Denies nausea and Denies vomiting Denies dysuria Musc Reports as per HPI, Reports back pain, Denies myalgias and Reports arthralgias Skin/Breast Reports lesions and Denies rash Neuro Denies dizziness and Denies headache(s) Physical exam (Primary Care) Vital Signs: Last Vital Signs Pulse 88 02/12/23 13:56 BP 138/84 02/12/23 14:16 Pulse Ox 96 02/12/23 13:56 Oxygen Delivery Method Room Air 02/12/23 13:56 BMI result Body Mass Index 25.4 Tobacco/Smoking Status: Tobacco use Status Tobacco use date assessed 02/12/23 02/12/23 13:57 Patient Tobacco Use Status Current everyday Tobacco 02/12/23 13:57 Tobacco use type Cigarette 02/12/23 13:57 e-Cigarette/Vaping Use Never Used 02/12/23 13:57 Thrive Assessment: Date of Thrive Assessment Date Thrive assessed 07/09/22 02/12/23 13:57 Const General: cooperative and no acute distress Orientation/consciousness: patient oriented x3 HENMT Head: Yes normocephalic and Yes atraumatic Mouth: oropharynx normal and moist mucous membranes Throat: Yes posterior oropharynx normal Eyes General: appearance normal, both eyes and all related structures Neck Neck: Yes normal visual inspection, Yes full ROM and Yes no lymphadenopathy Resp Effort & Inspection: normal respiratory effort and able to speak in complete sentences Auscultation: clear to auscultation bilaterally, no crackles, no rales, no rhonchi and no wheezes Cardio Rate: regular rate Rhythm: regular rhythm Heart sounds: S1 normal heart sound present and S2 normal heart sound present GI Auscultation: normal bowel sounds Skin Other: Left abdomen small flat lesion noted about 5-7mm, slightly erythematous Neuro General: patient oriented x3 Gait exam (Neuro): Normal gait present Extrem General: Yes full ROM and No edema Assessment and Plan Assessment & Plan (1) Mid back pain: Code(s): M54.9 - Dorsalgia, unspecified Plan: Last time lidocaine patch 4% was sent insurance would not cover this, patient requesting lidocaine patch 5%, prescription sent (2) Shoulder pain, right: Code(s): M25.511 - Pain in right shoulder Plan: Same as above (3) Impaired fasting blood sugar: Code(s): R73.01 - Impaired fasting glucose Plan: A1c 5.5 10/2022 Continue to monitor (4) Hypertension: Code(s): I10 - Essential (primary) hypertension Plan: Goal BP equal or less than 140/90 Continue lisinopril and labetalol Low-sodium diet (5) Hypercholesterolemia: Code(s): E78.00 - Pure hypercholesterolemia, unspecified Plan: LDL 125 10/2022 Continue atorvastatin Low-cholesterol diet (6) Skin lesion: Code(s): L98.9 - Disorder of the skin and subcutaneous tissue, unspecified Plan: Lyme disease blood work ordered Patient did not see tick (7) GERD (gastroesophageal reflux disease): Code(s): K21.9 - Gastro-esophageal reflux disease without esophagitis Plan: Increase omeprazole to 20 mg b.i.d. Avoid GERD trigger foods Do not lay down 2-3 hours after evening meal Plan Follow-up with PCP in 3 months or sooner as needed Orders: Orders 2 Comprehensive [place]. Panel Fast 02/12/23 I10 - Essential (primary) hypertension Lyme IgG/IgM w/reflex to WB 02/12/23 L98.9 - Disorder of the skin and subcutaneous tissue, unspecified Lipid Panel 02/12/23 E78.00 - Pure hypercholesterolemia, unspecified Hemoglobin A1c 02/12/23 R73.01 - Impaired fasting glucose Medications: New lidocaine 5% leave on most painful area for up to 12 hrs 2 patches topical DAILY 30 ea 2RF M25.811 - Other specified joint disorders, right shoulder, M54.9 - Dorsalgia, unspecified Changed From omeprazole 20 mg PO DAILY 90 days 90 caps 0RF K21.9 - Gastro-esophageal reflux disease without esophagitis To omeprazole 20 mg PO BID 90 days 180 caps 0RF K21.9 - Gastro-esophageal reflux disease without esophagitis Discontinued lidocaine 4% (Aspercreme (lidocaine)) Discontinued Reason: Doctor's Order 1 patch topical DAILY PRN 30 ea 1RF pain M25.511 - Pain in right shoulder, M54.9 - Dorsalgia, unspecified Coding Level of Care Code Est Pt Level 4 (18580) Diagnoses Mid back pain M54.9 Shoulder pain, right M25.511 Impaired fasting blood sugar R73.01 Hypertension I10 Hypercholesterolemia E78.00 Skin lesion L98.9 GERD (gastroesophageal reflux disease) K21.9
[2023-02-12 14:16] VITALS: BP 138/84
== END 2023-02-12 14:21 | disposition home or self-care (01) ==
PROVIDERS: PCP Internal Medicine; Visit Provider Nurse Practitioner Family
DX: M54.9 Dorsalgia, unspecified (principal); M25.511 Pain in right shoulder; R73.01 Impaired fasting glucose; I10 Essential (primary) hypertension; E78.00 Pure hypercholesterolemia, unspecified; L98.9 Disorder of the skin and subcutaneous tissue, unspecified; K21.9 Gastro-esophageal reflux disease without esophagitis
CPT/HCPCS: 99214

== ENCOUNTER 2023-05-05 14:06 | Outpatient (AMB) | payer OTHER, SELFPAY ==
[2023-05-05 14:27] VITALS: BP 138/84; PULSE 94; O2SAT 96
--- NOTE | 2023-05-05 14:27 | A.OFFVISCC_ITS ---
Intake Vital Signs 05/05/23 14:27 BP 138/84 Blood Pressure Location Lt radial Position Sitting Pulse 94 Pulse Source Pulse Oximeter Pulse Oximetry (%) 96 Oxygen Delivery Method Room Air Intake Visit Reasons: MAT VISIT Intake Note: the patient presents for a mat visit Operations Administrator Required: No Allergies penicillin G [PENICILLIN G] Allergy (Unknown, Verified 05/05/23 14:28) RASH Do you need a note to return to daycare/school/sports/work: No HPI MAT VISIT HPI Details Pt presents for ALEKSANDRA treatment and follow up She reports she has been doing well, Has no complaints or concerns today Has been keeping busy with hobbies, she likes to [email or web address] and [email or web address]. [facility] Medical History Left ear pain Abnormal blood sugar Ear abrasion Cervical cancer screening Breast pain, right Breast mass, left Hemorrhoid Onychomycosis Osteoarthritis, hip, bilateral Vitamin D deficiency Anxiety and depression Hypercholesterolemia Opioid use disorder Abnormal EKG Nail fungus ADH disorder Pulmonary nodules/lesions, multiple Pulmonary fibrosis COPD (chronic obstructive pulmonary disease) Surgical History History of vocal cord polypectomy Hx of removal of ovary History of section Family History Father Stroke Mother Hypertension Heart problem Stroke DDD (degenerative disc disease) Brother Heart attack Social History Housing: House Alcohol intake: current Patient Tobacco Use Status: Current everyday Tobacco user Tobacco use type: Cigarette Cigarettes Per Day: 10 e-Cigarette/Vaping Use: Never Used Second Hand Smoke Exposure: Yes service: No Current occupational status: disabled Cognitive needs: No Hearing needs: No Vision needs: Yes Review of Systems Const Reports as per HPI Physical Exam Vital Signs: Last Vital Signs Pulse 94 05/05/23 14:27 BP 138/84 05/05/23 14:27 Pulse Ox 96 05/05/23 14:27 Oxygen Delivery Method Room Air 05/05/23 14:27 Const General: cooperative, healthy appearing and comfortable Resp Effort & Inspection: normal respiratory effort Psych Appearance: grossly normal Mental Status: mental status grossly normal Speech and movement: Normal speech and movement present Affect: normal affect Attitude: cooperative Assessment & Plan Assessment & Plan (1) Opioid use disorder: Code(s): F11.99 - Opioid use, unspecified with unspecified opioid-induced disorder Plan: Continue suboxone at current dose Follow up 3 months Medications: Refilled buprenorphine-naloxone 8-2 mg (Suboxone) 1 film sublingual TID 30 days 90 ea 2RF Coding Level of Care Code Est Pt Level 3 (77500) Diagnoses Opioid use disorder F11.99
== END 2023-05-05 15:03 | disposition home or self-care (01) ==
PROVIDERS: PCP Internal Medicine; Visit Provider Nurse Practitioner Family
DX: F11.99 Opioid use, unspecified with unspecified opioid-induced disorder (principal)
CPT/HCPCS: 99213

== ENCOUNTER → 2023-05-05 14:06 | Outpatient (BNVA) | payer OTHER, SELFPAY | PROVIDERS: PCP Internal Medicine; Visit Provider Nurse Practitioner Family | DX: F11.20 Opioid dependence, uncomplicated (principal) | CPT/HCPCS: 99212 ==

== ENCOUNTER 2023-07-29 14:31 | Outpatient (AMB) | payer OTHER, SELFPAY ==
--- NOTE | 2023-07-29 14:32 | A.OFFVISCC_ITS ---
Intake Vital Signs 07/29/23 14:40 BP 132/86 Blood Pressure Location Lt radial Position Sitting Pulse 92 Pulse Source Pulse Oximeter Pulse Oximetry (%) 95 Oxygen Delivery Method Room Air Intake Visit Reasons: MAT VISIT Intake Note: The patient presents for a mat visit Tribal Council Member Required: No Allergies penicillin G [PENICILLIN G] Allergy (Unknown, Verified 07/29/23 14:32) RASH HPI MAT VISIT HPI Details Patient presents for MAT appointment Has no concerns for recovery today Is excited for spring to start gardening Doing well overall [facility] Medical History Left ear pain Abnormal blood sugar Ear abrasion Cervical cancer screening Breast pain, right Breast mass, left Hemorrhoid Onychomycosis Osteoarthritis, hip, bilateral Vitamin D deficiency Anxiety and depression Hypercholesterolemia Opioid use disorder Abnormal EKG Nail fungus ADH disorder Pulmonary nodules/lesions, multiple Pulmonary fibrosis COPD (chronic obstructive pulmonary disease) Surgical History History of vocal cord polypectomy Hx of removal of ovary History of section Family History Father Stroke Mother Hypertension Heart problem Stroke DDD (degenerative disc disease) Brother Heart attack Social History Housing: House Alcohol intake: current Patient Tobacco Use Status: Current everyday Tobacco user Tobacco use type: Cigarette Cigarettes Per Day: 10 e-Cigarette/Vaping Use: Never Used Second Hand Smoke Exposure: Yes service: No Current occupational status: disabled Cognitive needs: No Hearing needs: No Vision needs: Yes Review of Systems Const Reports as per HPI Physical Exam Vital Signs: Last Vital Signs Pulse 92 07/29/23 14:40 BP 132/86 07/29/23 14:40 Pulse Ox 95 07/29/23 14:40 Oxygen Delivery Method Room Air 07/29/23 14:40 Const General: cooperative and no acute distress Resp Effort & Inspection: normal respiratory effort Psych Appearance: grossly normal Mental Status: mental status grossly normal Speech and movement: Normal speech and movement present Affect: normal affect Attitude: cooperative Assessment & Plan Assessment & Plan (1) Opioid use disorder: Code(s): F11.99 - Opioid use, unspecified with unspecified opioid-induced disorder Plan: -Continue suboxone at current dose 8mg tid -Follow up 2 months Medications: Refilled buprenorphine-naloxone 8-2 mg (Suboxone) 1 film sublingual TID 30 days 90 ea 2RF Coding Level of Care Code Est Pt Level 3 (81005) Diagnoses Opioid use disorder F11.99
[2023-07-29 14:40] VITALS: BP 132/86; PULSE 92; O2SAT 95
== END 2023-07-29 15:37 | disposition home or self-care (01) ==
LOC: HO.HCC 14:31
PROVIDERS: PCP Internal Medicine; Visit Provider Nurse Practitioner Family
DX: F11.99 Opioid use, unspecified with unspecified opioid-induced disorder (principal)
CPT/HCPCS: 99213

== ENCOUNTER → 2023-07-29 14:31 | Outpatient (BNVA) | payer OTHER, SELFPAY | PROVIDERS: PCP Internal Medicine; Visit Provider Nurse Practitioner Family | DX: F11.20 Opioid dependence, uncomplicated (principal) | CPT/HCPCS: 99212 ==

== ENCOUNTER 2023-08-11 12:02 | Outpatient (REF) | payer OTHER, SELFPAY ==
[2023-08-11 14:25] LABS: Alanine Aminotransferase 17 U/L (0-31); Albumin Level 3.9 g/dL (3.5-5.0); Alkaline Phosphatase 86 U/L (39-117); Anion Gap 12 (12-20); Aspartate Amino Transferase 19 U/L (5-31); Bilirubin Total 0.3 mg/dL (0.0-1.0); Blood Urea Nitrogen 15 mg/dL (9-16); Calcium 9.9 mg/dL (8.4-10.2); Carbon Dioxide 26 mmol/L (22-29); Chloride 105 mmol/L (96-108); Cholesterol 230 mg/dL (<200); Estimated Average Glucose 114 mg/dL; Estimated Glomerular Filt Rate > 60; Glucose Fasting 125 mg/dL (60-99); HDL Cholesterol 54 mg/dL (>40); Hemoglobin A1c % 5.6 % (<6.0); LDL Cholesterol Calculated 160 mg/dL (<100); Potassium 4.7 mmol/L (3.3-5.1); Sodium 138 mmol/L (135-145); Total Protein 7.1 g/dL (6.5-8.0); Triglycerides 84 mg/dL (<150)
[2023-08-12 08:49] LABS: Lyme Abs Screen <0.90 index
== END 2023-08-11 12:03 | disposition home or self-care (01) ==
LOC: HO.LAB 12:02
PROVIDERS: PCP Internal Medicine; Visit Provider Nurse Practitioner Family
DX: L98.9 Disorder of the skin and subcutaneous tissue, unspecified (principal); E78.00 Pure hypercholesterolemia, unspecified; I10 Essential (primary) hypertension; R73.01 Impaired fasting glucose
CPT/HCPCS: 36415; 80053; 80061; 83036; 86617; 86618

== ENCOUNTER 2023-08-11 12:46 | Outpatient (AMB) | payer OTHER, SELFPAY ==
[2023-08-11 12:48] VITALS: BP 122/70; PULSE 84; O2SAT 95; BMI 28.7
--- NOTE | 2023-08-11 12:48 | A.OFFPC_ITS ---
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 Last seen in July 2022 patient was advised to get blood work done had some right shoulder pain and an x-ray was done. Patient follows up with comprehensive care on Suboxone presently. Patient's last colon test was October 2018 when was advised to get colonoscopy. Reminded about mammogram and bone density.. noted mass on the breast chronic and still there for years. went to orthopedics complains of thoracic back pain- and bilateral shoulder and ;looking for one doctor but advised this are seperate. has shoulder ortho. has dermatology and will need biopsy on the R cheek area, also has lesio on the L ear and wants it operated on [facility] Medical History Left ear pain Abnormal blood sugar Ear abrasion Cervical cancer screening Breast pain, right Breast mass, left Hemorrhoid Onychomycosis Osteoarthritis, hip, bilateral Vitamin D deficiency Anxiety and depression Hypercholesterolemia Opioid use disorder Abnormal EKG Nail fungus ADH disorder Pulmonary nodules/lesions, multiple Pulmonary fibrosis COPD (chronic obstructive pulmonary disease) Surgical History History of vocal cord polypectomy Hx of removal of ovary History of section Family History Father Stroke Mother Hypertension Heart problem Stroke DDD (degenerative disc disease) Brother Heart attack Social History Housing: House Alcohol intake: current Patient Tobacco Use Status: Current everyday Tobacco user Tobacco use type: Cigarette Cigarettes Per Day: 10 e-Cigarette/Vaping Use: Never Used Second Hand Smoke Exposure: Yes service: No Current occupational status: disabled Cognitive needs: No Hearing needs: No Vision needs: Yes Questionnaire PHQ-9 Over the last 2 weeks, how often have you been bothered by any of the following problems? 1. Little interest or pleasure in doing things: several days 2. Feeling down, depressed, or hopeless: several days 3. Trouble falling or staying asleep, or sleeping too much: several days 4. Feeling tired or having little energy: several days 5. Poor appetite or overeating: not at all 6. Feeling bad about yourself - or that you are a failure or have let yourself or your family down: not at all 7. Trouble concentrating on things, such as reading the newspaper or watching television: not at all 8. Moving or speaking so slowly that other people could have noticed. Or the opposite - being so fidgety or restless that you have been moving around a lot more than usual: not at all 9. Thoughts that you would be better off or of hurting yourself in some way: not at all Total score: 4 Depression Screening Interpretation: Positive Depression Screening Follow-up: Existing condition and In treatment Depression Screening Done: Yes Source: Developed by Drs. Dean Real, Shireen Godfrey, Mj Zuñiga and colleagues, with an educational ramón from [employer]. Thrive Questionnaire Date Thrive assessed: 08/11/23 I am a: Patient What is your living situation today?: I have a steady place to live Within the past 12 months, did the food you bought not last and you didn't have the money to get more?: Never true Within the past 12 months, did you worry whether your food would run out before you got money to buy more?: Never true Do you have trouble paying for medicines?: No Do you have trouble getting transportation to medical appointments?: No Do you have trouble paying your heating and electricity bill?: No Do you have trouble taking care of your child, family member or friend?: No Do you have trouble with day-to-day activities such as bathing, preparing meals, shopping, managing finances, etc.?: No Are you currently unemployed and looking for a job?: No Are you interested in more education?: No Please select the resources that you would like help with: None Currently or been in a relationship where the following occur: no concerns reported THRIVE Score: 0 AUDIT C Alcohol Use Questionnaire (AUDIT-C) 1. How often do you have a drink containing alcohol?: Monthly or less 2. How many drinks containing alcohol do you have on a typical day when you are drinking?: 1 or 2 3. How often do you have six or more drinks on one occasion?: Never Total Score: 1 Score Reviewed/Action Taken: No ALBERTO-7 AMB Questionnaire ALBERTO-7 Date ALBERTO - 7 assessed: 08/11/23 Feeling nervous, anxious, or on edge: 3 = Nearly every day Not being able to stop or control worryin = Nearly every day Worrying too much about different things: 0 = Not at all Trouble relaxin = Not at all Being so restless that it is hard to sit still: 0 = Not at all Becoming easily annoyed or irritable: 0 = Not at all Feeling afraid as if something awful might happen: 0 = Not at all Total ALBERTO-7 score (0-4 normal; 5-9 mild; 10-14 moderate; 15-21 severe): 6 Source: Developed by Drs. Dean Real, Shireen Godfrey, Mj Zuñiga and colleagues, with an educational ramón from [employer]. Physical exam (Primary Care) Vital Signs: Last Vital Signs Pulse 84 08/11/23 12:48 BP 122/70 08/11/23 12:48 Pulse Ox 95 08/11/23 12:48 Oxygen Delivery Method Room Air 08/11/23 12:48 BMI result Body Mass Index 28.7 Tobacco/Smoking Status: Tobacco use Status Tobacco use date assessed 08/11/23 08/11/23 12:55 Patient Tobacco Use Status Current everyday Tobacco 08/11/23 12:55 Tobacco use type Cigarette 08/11/23 12:55 e-Cigarette/Vaping Use Never Used 08/11/23 12:55 PHQ-9: PHQ-9 Score PHQ-9: Total score 4 08/11/23 12:59 Depression Screening Interpretation: Positive Depression Screening Follow-up: Existing condition and In treatment Thrive Assessment: Date of Thrive Assessment Date Thrive assessed 08/11/23 08/11/23 12:55 Currently or been in a relationship where the following occur: no concerns reported Const General: alert; No acute distress Eyes Conjunctivae: conjunctivae normal Chest Chest/axillae images: 2 1. 2 cm mass palpated on the right breast side 5 o'clock position 1 cm mass palpated on the left breast 6 o'clock position 2. Resp Auscultation: clear to auscultation bilaterally Cardio Rate: regular rate Rhythm: regular rhythm GI Inspection: Yes normal to inspection Extrem General: Yes normal to inspection and No edema Assessment and Plan Assessment & Plan (1) Colon cancer screening: Code(s): Z12.11 - Encounter for screening for malignant neoplasm of colon Plan: Patient is reminded about colonoscopy (2) Tobacco abuse: Code(s): Z72.0 - Tobacco use Plan: Patient is strongly advised to stop smoking (3) COPD (chronic obstructive pulmonary disease): Comment: IT HAS BEEN RELATIVELY STABLE , WILL REORDER PROAIR FOR TO USE 2 PUFFS Q 6 HRS ONLY PRN . Code(s): J44.9 - Chronic obstructive pulmonary disease, unspecified Plan: Continue with the inhalers (4) Hypertension: Code(s): I10 - Essential (primary) hypertension Plan: Continue with blood pressure medication. Decrease salt intake and exercise on lisinopril 5 mg once a day labetalol 100 mg twice a day (5) Opioid use disorder: Code(s): F11.99 - Opioid use, unspecified with unspecified opioid-induced disorder Plan: Patient continues to follow-up with comprehensive care. On Suboxone (6) Hypercholesterolemia: Code(s): E78.00 - Pure hypercholesterolemia, unspecified Plan: Avoid fried foods, chicken skin, eggs, butter margarine, pastries and meat. Be it pork or beef they have a lot of cholesterol on atorvastatin 40 mg once a day and LDL goal of less than 130 and triglyceride of less than 150. Labs are pending (7) GERD (gastroesophageal reflux disease): Code(s): K21.9 - Gastro-esophageal reflux disease without esophagitis Plan: Avoid the foods that causes that usually spicy foods, tomato products, juices, coffee, soda and foods that your sensitive to. After eating do not lie down, allow 3-4 hours before in lie down. And keep the head of bed above 30 degrees to avoid the acid from going up. (8) Osteopenia: Comment: February 2021 Code(s): M85.80 - Other specified disorders of bone density and structure, unspecified site Plan: Patient is reminded about bone density (9) Impaired fasting blood sugar: Code(s): R73.01 - Impaired fasting glucose Plan: Decrease the amount of carbohydrate intake, pasta, bread, rice and potatoes are all sugar and that is aside from all the sweet stuff, remember that fruits are good but they are Sweet also. (10) Earlobe lesion: Code(s): H61.90 - Disorder of external ear, unspecified, unspecified ear (11) Knee pain, bilateral: Code(s): M25.561 - Pain in right knee; M25.562 - Pain in left knee (12) Masses of both breasts: Comment: 2 cm mass palpated on the right breast side 5 o'clock position 1 cm mass palpated on the left breast 6 o'clock position Code(s): N63.10 - Unspecified lump in the right breast, unspecified quadrant; N63.20 - Unspecified lump in the left breast, unspecified quadrant Orders: Orders 2 XR DEXA axial skeleton Today M81.0 - Age-related osteoporosis without current pathological fracture, M85.80 - Other specified disorders of bone density and structure, unspecified site XR knee standing BI Today M25.561 - Pain in right knee, M25.562 - Pain in left knee MM tomosynthesis diagnostic BI Today N63.10 - Unspecified lump in the right breast, unspecified quadrant, N63.20 - Unspecified lump in the left breast, unspecified quadrant US breast LT limited Today N63.10 - Unspecified lump in the right breast, unspecified quadrant, N63.20 - Unspecified lump in the left breast, unspecified quadrant US breast RT limited Today N63.10 - Unspecified lump in the right breast, unspecified quadrant, N63.20 - Unspecified lump in the left breast, unspecified quadrant Referrals 2 Gastroenterology Referral Z12.11 - Encounter for screening for malignant neoplasm of colon Dermatology Referral H61.90 - Disorder of external ear, unspecified, unspecified ear Pulmonary Medicine Referral J44.9 - Chronic obstructive pulmonary disease, unspecified Medications: New 2 montelukast (Singulair) 10 mg PO BEDTIME 30 tabs 4RF J30.9 - Allergic rhinitis, unspecified Refilled 2 cholecalciferol (vitamin D3) 25 mcg PO DAILY 30 caps 11RF J44.9 - Chronic obstructive pulmonary disease, unspecified fexofenadine (Vanessa Allergy) 180 mg PO DAILY 30 tabs 2RF M25.561 - Pain in right knee, M25.562 - Pain in left knee Coding Level of Care Code Est Pt Level 4 (12168) Diagnoses Colon cancer screening Z12.11 Tobacco abuse Z72.0 COPD (chronic obstructive pulmonary disease) J44.9 Hypertension I10 Opioid use disorder F11.99 Hypercholesterolemia E78.00 GERD (gastroesophageal reflux disease) K21.9 Osteopenia M85.80 Impaired fasting blood sugar R73.01 Earlobe lesion H61.90 Knee pain, bilateral M25.561; M25.562 Masses of both breasts N63.10; N63.20 Additional Codes PHQ-9 - 80246 - PHQ-9 Billing: ([id number])
== END 2023-08-11 13:31 | disposition home or self-care (01) ==
PROVIDERS: PCP Internal Medicine; Visit Provider Internal Medicine
DX: J44.9 Chronic obstructive pulmonary disease, unspecified (principal); F11.99 Opioid use, unspecified with unspecified opioid-induced disorder; Z12.11 Encounter for screening for malignant neoplasm of colon; Z72.0 Tobacco use; I10 Essential (primary) hypertension; E78.00 Pure hypercholesterolemia, unspecified; K21.9 Gastro-esophageal reflux disease without esophagitis; M85.80 Other specified disorders of bone density and structure, unspecified site; R73.01 Impaired fasting glucose; M25.561 Pain in right knee; M25.562 Pain in left knee
CPT/HCPCS: 99214

== ENCOUNTER → 2023-09-07 14:30 | Outpatient (BNV) | payer OTHER, SELFPAY | PROVIDERS: PCP Internal Medicine; Visit Provider Radiology Diagnostic Radiology | DX: R92.313 Mammographic fatty tissue density, bilateral breasts (principal); R92.323 Mammographic fibroglandular density, bilateral breasts | CPT/HCPCS: 76642; 77066; G0279 ==

== ENCOUNTER 2023-09-07 14:40 | Outpatient (REF) | payer OTHER, SELFPAY ==
--- NOTE | ~2023-09-07 | US_ITS ---
EXAMINATION: MM DIAGNOSTIC DIGITAL BREAST TOMOSYNTHESIS, BILATERAL US BREAST LIMITED, BILATERAL MAMMOGRAPHY: CLINICAL INFORMATION: 63-year-old female complaining of left breast palpable abnormality 6:00 axis, measuring 2 cm, and the right breast palpable abnormality anterior, 5:00 axis, measuring 1 cm. COMPARISON: Mammography: 01/31/2021, 03/08/2020, 08/15/2018, 08/11/2017, and dating back to 2017. TECHNIQUE: Digital breast tomosynthesis is performed in both the craniocaudal and mediolateral oblique views along with computer-aided detection (CAD). Synthesized 2D images are generated from the tomosynthesis. In addition, full-field bilateral 3-D MLO views were also obtained. FINDINGS: There are scattered areas of fibroglandular density (ACR BI-RADS breast composition Category b). There are no suspicious masses, suspicious grouped calcifications, or areas of architectural distortion in either breast. There is a stable 0.8 cm nodular focus in the lateral upper left breast mid one third, unchanged from numerous exams. The parenchymal pattern is stable from prior exams. No skin or axillary abnormalities. No mammographic correlate to the foci of palpable concern in either breast is present. ULTRASOUND: CLINICAL INFORMATION: Evaluate bilateral palpable abnormalities as detailed above. COMPARISON: 01/31/2021 left breast ultrasound. TECHNIQUE: Targeted sonographic evaluation was performed using a high frequency linear transducer. Attention was focused in both breasts from the 4:00 to the 8:00 axes. Selected archived documentation. FINDINGS: RIGHT BREAST: There is a mixture of fatty and fibroglandular tissue. No suspicious mass is seen. There is no pathologic acoustic shadowing. There is no cystic abnormality. LEFT BREAST: There is a mixture of fatty and fibroglandular tissue. No suspicious mass is seen. There is no pathologic acoustic shadowing. There is no cystic abnormality. No sonographic correlate to the foci of palpable concern in either breast. US/US breast BI limited mamm only IMPRESSION: -No findings suspicious for malignancy in either breast. -No mammographic or sonographic abnormalities in the regions of purported palpable foci of left breast 6:00 and right breast 5:00. Recommend clinical management. -Otherwise, recommend resuming routine annual screening. OVERALL ASSESSMENT: Mammography: BI-RADS 2 - Benign Findings Ultrasound: BI-RADS 2 - Benign Findings RECOMMENDATION: 1. Patient should be managed based on the clinical impression. 2. Otherwise, routine annual screening mammography. Results were provided to the patient at time of visit by the technologist. This patient's information was entered into a reminder system with a target due date for their next mammogram.
== END 2023-09-07 14:41 | disposition home or self-care (01) ==
LOC: HO.MAMMO 14:40
PROVIDERS: PCP Internal Medicine; Visit Provider Internal Medicine
DX: N63.15 Unspecified lump in the right breast, overlapping quadrants (principal); N63.25 Unspecified lump in the left breast, overlapping quadrants
CPT/HCPCS: 76642; 77062; 77066

== ENCOUNTER 2023-09-28 15:10 | Outpatient (AMB) | payer OTHER, SELFPAY ==
[2023-09-28 15:24] VITALS: BP 136/84; PULSE 96; O2SAT 98; BMI 27.9
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
== END 2023-09-28 16:17 | disposition home or self-care (01) ==
PROVIDERS: PCP Internal Medicine; Visit Provider Internal Medicine
DX: M25.511 Pain in right shoulder (principal); M54.2 Cervicalgia; V49.40XA Driver injured in collision with unspecified motor vehicles in traffic accident, initial encounter; Z04.3 Encounter for examination and observation following other accident
CPT/HCPCS: 99213

== ENCOUNTER 2023-10-07 13:36 | Outpatient (AMB) | payer OTHER, SELFPAY ==
[2023-10-07 13:56] VITALS: BP 140/82; PULSE 82; O2SAT 96; BMI 28.9
--- NOTE | 2023-10-07 13:56 | A.OFFVIS_ITS ---
Vital Signs 10/07/23 13:56 Height 5 ft Weight 148 lb BMI 28.9 BP 140/82 H Blood Pressure Location Lt brachial Position Sitting Pulse 82 Pulse Source Pulse Oximeter Pulse Oximetry (%) 96 Oxygen Delivery Method Room Air Intake Visit Reasons: COPD Intake Note: pt is here for follow up and states her breathing is not that great, allergies are horrible Business Process Consultant Required: No Allergies penicillin G [PENICILLIN G] Allergy (Unknown, Verified 10/07/23 14:18) RASH Medication List - Last Reconciled 10/07/23 by Jennie Esparza MD albuterol sulfate 90 mcg/actuation (ProAir HFA) 2 puffs inhalation Q4-6H PRN 30 days alprazolam 1 mg PO DAILY PRN atorvastatin 40 mg PO DAILY 90 days blood sugar diagnostic (FreeStyle Lite Strips) As directed check the BS QD blood-glucose meter (FreeStyle Lite Meter kit) As directed buprenorphine-naloxone 8-2 mg (Suboxone) 1 film sublingual TID 30 days cholecalciferol (vitamin D3) 25 mcg PO DAILY cyclobenzaprine 10 mg PO TID PRN dextroamphetamine-amphetamine 20 mg (Adderall) 20 mg PO BID fexofenadine (Vanessa Allergy) 180 mg PO DAILY fluticasone propionate 50 mcg/actuation (Flonase Allergy Relief) 2 sprays intranasal DAILY hydrocortisone 2.5% (Proctosol HC) 1 appl MT BID-QID PRN hydroxyzine HCl 100 mg PO BEDTIME labetalol 100 mg PO BID 90 days lancets (FreeStyle Lancets) As directed check BS QD lidocaine 5% 2 patches topical DAILY lisinopril 5 mg PO DAILY magnesium oxide 400 mg PO DAILY montelukast (Singulair) 10 mg PO BEDTIME nicotine (polacrilex) 2 mg buccal Q2H omeprazole 20 mg PO BID 90 days terbinafine HCl 250 mg PO DAILY 12 weeks trazodone 200 mg PO BEDTIME Do you need a note to return to daycare/school/sports/work: No HPI HPI COPD: Details: This 63 years old female is a lifelong smoker. Has cut down to half pack a day, She was seen by me in 2019, prescribed ProAir to be used only p.r.n.. She was not ablet perform pulmonary function test. Had a CT scan in 2019 which showed multiple pulmonary nodules but she has not c ome back for follow-up. Today she comes because she has been out of ProAir. Her main complaint is only occasional cough, and gets short of breath if shes to climb 1 or 2 flights of stairs. She does want to have i.s a CT scan of the lungs I asked about the function test and she say is she would not be able to do that. Should be noted that this patient has history of opioids abuse and is currently on Suboxone. She has history of nasal congestion with postnasal drip due to nasal allergis, and uses Flonase as well as fexofenadine. PENDING SALE TO [facility] Medical History Left ear pain Abnormal blood sugar Ear abrasion Cervical cancer screening Breast pain, right Breast mass, left Hemorrhoid Onychomycosis Osteoarthritis, hip, bilateral Vitamin D deficiency Anxiety and depression Hypercholesterolemia Opioid use disorder Abnormal EKG Nail fungus ADH disorder Pulmonary nodules/lesions, multiple Pulmonary fibrosis COPD (chronic obstructive pulmonary disease) Surgical History History of vocal cord polypectomy Hx of removal of ovary History of section Family History Father Stroke Mother Hypertension Heart problem Stroke DDD (degenerative disc disease) Brother Heart attack Social History Housing: House Alcohol intake: current Patient Tobacco Use Status: Current everyday Tobacco user Tobacco use type: Cigarette Cigarettes Per Day: 10 e-Cigarette/Vaping Use: Never Used Second Hand Smoke Exposure: Yes service: No Current occupational status: disabled Cognitive needs: No Hearing needs: No Vision needs: Yes Review of Systems Const Denies body aches, Denies chills, Denies fatigue, Denies fever(s) and Denies headache(s) Eyes Denies blurry vision, Denies irritation, Denies itchy eyes and Denies loss of vision ENT Denies dysphagia, Denies vertigo, Denies headache(s), Denies epistaxis, Denies nasal congestion, Denies nasal discharge, Denies nasal obstruction and Denies sinus pain Card Denies chest pain, Denies rapid heart rate, Denies irregular heart rhythm, Reports dyspnea on exertion and Denies slow heart rate Resp Reports as per HPI and Reports dyspnea on exertion GI Reports bloating, Denies change in bowel habits, Denies change in stool character, Denies dysphagia, Denies heartburn, Denies nausea and Denies vomiting Denies difficulty voiding and Denies urinary incontinence Musc Denies abnormal gait, Denies back pain, Denies myalgias, Denies arthralgias, Denies muscle weakness and Denies stiffness Neuro Denies abnormal gait, Denies vertigo, Denies headache(s), Denies focal weakness, Denies loss of vision, Denies memory loss, Denies restless legs and Denies tremor(s) Psych Reports anxiety, Denies depression, Denies difficulty concentrating, Denies irritability, Denies memory loss and Denies mood swings Endo Reports no additional complaints and Denies fatigue Cullen/Lymph Reports no additional complaints Aller/Immun Reports no additional complaints and Denies itchy eyes Physical Exam Vital Signs: Last Vital Signs Pulse 82 10/07/23 13:56 BP 140/82 H 10/07/23 13:56 Pulse Ox 96 10/07/23 13:56 Oxygen Delivery Method Room Air 10/07/23 13:56 BMI result Body Mass Index 28.9 Const General: comfortable, no acute distress, alert and awake Orientation/consciousness: patient oriented x3 HEENT Head: Yes normal to inspection General nose exam: No nasal polyps present and No nasal discharge present Face and sinus: Yes sinuses nontender Mouth: oropharynx normal Throat: Yes posterior oropharynx normal Eyes General: appearance normal, both eyes and all related structures Neck Neck: Yes normal visual inspection, Yes no lymphadenopathy, Yes trachea midline and Yes no JVD Thyroid: Thyroid normal Chest Chest palpation & inspection: normal inspection of the chest, normal palpation of entire chest wall and no tenderness Resp Other: Percussion note hyper-resonant, breath sounds are distant with prolonged expiratory phase, no audible wheezes or crepitations. Cardio Palpation: normal PMI Rate: regular rate Rhythm: regular rhythm Heart sounds: no gallops and no murmurs Peripheral pulses: Peripheral pulses 2+ throughout GI Palpation (GI): Soft to palpation, nontender, No hepatosplenomegaly present and no masses Auscultation: normal bowel sounds Back/Spine/Pelvis Thoracic/Lumbar Spine: thoracic and lumbar spine normal to inspection Skin General skin exam: no rashes or lesions noted Neuro General: patient oriented x3 and no focal motor deficits Cranial nerves: Yes CN's II-XII intact bilaterally Extrem General: Yes normal to inspection, Yes no clubbing, cyanosis or edema, Yes no calf tenderness and No venous stasis dermatitis Psych Appearance: grossly normal and other (Just a little anxious) Speech and movement: Normal speech and movement present Assessment & Plan Assessment & Plan (1) COPD (chronic obstructive pulmonary disease): Comment: CINDY HAS CHRONIC OBSTRUCTIVE PULMONARY DISEASE, WHICH HAS REMAINED RELATIVELY STABLE. Code(s): J44.9 - Chronic obstructive pulmonary disease, unspecified Category: Medical Plan: CONTINUE TO USE PROAIR 2 PUFFS Q 4-6 HOURS NEEDED PRESCRIPTION RENEWED (2) Pulmonary nodules/lesions, multiple: Comment: LAST CT SCAN IN HAD SHOWN MULTIPLE NODULES. Code(s): R91.8 - Other nonspecific abnormal finding of lung field Category: Medical Plan: WILL ORDER A REPEAT CT SCAN OF CHEST , (3) Allergic rhinitis: Comment: CHRONIC ALLERGIC RHINITIS REMAINS UNDER CONTROL WITH THE USE OF FLONASE AND FEXOFENADINE Code(s): J30.9 - Allergic rhinitis, unspecified Category: Medical Plan: ADVISED TO CONTINUE HER USUAL MEDICATIONS (4) Tobacco abuse: Comment: SHE HAS LONGSTANDING HISTORY OF SMOKING. CLAIMS THAT SHE HAS CUT DOWN TO HALF PACK A DAY. SHE WAS SUPPOSED TO BE IN ANNUAL LUNG SCREENING PROGRAM BUT HAS NOT SHOWN UP FOR LAST 4 YEARS. Code(s): Z72.0 - Tobacco use Category: Medical Plan: SHE IS COUNSELED TO QUIT COMPLETELY, AND SHE SHOULD BE GOING BACK TO ANNUAL LUNG SCREENING PROGRAM Orders: Orders CT chest wo IV con Today J44.9 - Chronic obstructive pulmonary disease, unspecified, R91.8 - Other nonspecific abnormal finding of lung field, Z72.0 - Tobacco use Medications: Refilled albuterol sulfate 90 mcg/actuation (ProAir HFA) 2 puffs inhalation Q4-6H 30 days PRN 8.5 grams 3RF shortness of breath or wheezing Coding Level of Care Code Est Pt Level 3 (03977) Diagnoses COPD (chronic obstructive pulmonary disease) J44.9 Pulmonary nodules/lesions, multiple R91.8 Allergic rhinitis J30.9 Tobacco abuse Z72.0
== END 2023-10-07 14:17 | disposition home or self-care (01) ==
PROVIDERS: PCP Internal Medicine; Referring Provider Internal Medicine; Visit Provider Internal Medicine
DX: J44.9 Chronic obstructive pulmonary disease, unspecified (principal); R91.8 Other nonspecific abnormal finding of lung field; J30.9 Allergic rhinitis, unspecified; Z72.0 Tobacco use
CPT/HCPCS: 99213

== ENCOUNTER → 2023-10-07 13:36 | Outpatient (BNVA) | payer OTHER, SELFPAY | PROVIDERS: PCP Internal Medicine; Referring Provider Internal Medicine; Visit Provider Internal Medicine | DX: J44.9 Chronic obstructive pulmonary disease, unspecified (principal); J30.9 Allergic rhinitis, unspecified; R91.8 Other nonspecific abnormal finding of lung field; Z72.0 Tobacco use | CPT/HCPCS: 99212 ==

== ENCOUNTER 2023-10-21 13:42 | Outpatient (AMB) | payer OTHER, SELFPAY ==
--- NOTE | 2023-10-21 13:48 | A.OFFVISCC_ITS ---
Vital Signs 10/21/23 13:51 BP 130/80 Blood Pressure Location Rt brachial Position Sitting Respiration 120 H Pulse Source Pulse Oximeter Intake Visit Reasons: MAT VISIT Allergies penicillin G [PENICILLIN G] Allergy (Unknown, Verified 10/07/23 14:18) RASH HPI HPI MAT VISIT: Details: Patient presents for MAT appointment Reports she has been doing well Tolerating suboxone 8mg TID well Denies withdrawal symptoms Keeping busy gardening Doing well overall HPI Comments Details: Patient presents for MAT visit [facility] Medical History Left ear pain Abnormal blood sugar Ear abrasion Cervical cancer screening Breast pain, right Breast mass, left Hemorrhoid Onychomycosis Osteoarthritis, hip, bilateral Vitamin D deficiency Anxiety and depression Hypercholesterolemia Opioid use disorder Abnormal EKG Nail fungus ADH disorder Pulmonary nodules/lesions, multiple Pulmonary fibrosis COPD (chronic obstructive pulmonary disease) Surgical History History of vocal cord polypectomy Hx of removal of ovary History of section Family History Father Stroke Mother Hypertension Heart problem Stroke DDD (degenerative disc disease) Brother Heart attack Social History Housing: House Alcohol intake: current Patient Tobacco Use Status: Current everyday Tobacco user Tobacco use type: Cigarette Cigarettes Per Day: 10 e-Cigarette/Vaping Use: Never Used Second Hand Smoke Exposure: Yes service: No Current occupational status: disabled Cognitive needs: No Hearing needs: No Vision needs: Yes Review of Systems Const Reports as per HPI Physical Exam Vital Signs: Last Vital Signs Resp 120 H 10/21/23 13:51 BP 130/80 10/21/23 13:51 Const General: cooperative and no acute distress Resp Effort & Inspection: normal respiratory effort and able to speak in complete sentences Psych Appearance: grossly normal Mental Status: mental status grossly normal Speech and movement: Normal speech and movement present Affect: normal affect Attitude: cooperative Thought process: Normal thought process present Assessment & Plan Assessment & Plan (1) Opioid use disorder: Code(s): F11.99 - Opioid use, unspecified with unspecified opioid-induced disorder Category: Medical Plan: -Mass pat reviewed -Suboxone refill sent to pharmacy -Follow up 3 months Medications: Refilled buprenorphine-naloxone 8-2 mg (Suboxone) 1 film sublingual TID 30 days 90 ea 2RF
[2023-10-21 13:51] VITALS: BP 130/80; RESP 120
== END 2023-10-21 14:36 | disposition home or self-care (01) ==
PROVIDERS: PCP Internal Medicine; Visit Provider Nurse Practitioner Family
DX: F11.99 Opioid use, unspecified with unspecified opioid-induced disorder (principal)
CPT/HCPCS: 99213

== ENCOUNTER → 2023-10-21 13:42 | Outpatient (BNVA) | payer OTHER, SELFPAY | PROVIDERS: PCP Internal Medicine; Visit Provider Nurse Practitioner Family | DX: F11.20 Opioid dependence, uncomplicated (principal); Z79.899 Other long term (current) drug therapy | CPT/HCPCS: 99212 ==

== ENCOUNTER 2023-11-03 11:35 | Outpatient (AMB) | payer OTHER, SELFPAY ==
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
[2023-11-03 11:47] VITALS: BP 172/94; PULSE 92; O2SAT 94; BMI 28.5
== END 2023-11-03 12:32 | disposition home or self-care (01) ==
PROVIDERS: PCP Internal Medicine; Visit Provider Nurse Practitioner Family
DX: K21.9 Gastro-esophageal reflux disease without esophagitis (principal); Z12.11 Encounter for screening for malignant neoplasm of colon
CPT/HCPCS: 99203

== ENCOUNTER → 2023-11-03 11:35 | Outpatient (BNVA) | payer OTHER, SELFPAY | PROVIDERS: PCP Internal Medicine; Visit Provider Nurse Practitioner Family | DX: K21.9 Gastro-esophageal reflux disease without esophagitis (principal); I10 Essential (primary) hypertension | CPT/HCPCS: 99202 ==

== ENCOUNTER 2023-11-05 14:17 | Outpatient (REF) | payer OTHER, SELFPAY ==
--- NOTE | ~2023-11-05 | CT_ITS ---
EXAMINATION: CT CHEST WITHOUT CONTRAST CLINICAL INFORMATION: Pulmonary nodule, tobacco use COMPARISON: 04/09/2020 TECHNIQUE: Multidetector volumetric CT imaging of the chest was done. Axial MIP volume rendering provided. Sagittal and coronal reformatted images were obtained. This CT examination was performed using dose optimization techniques as appropriate, variously including the following: *Automated exposure control *Adjustment of mA and/or kV according to patient size (this includes techniques or standardized protocols for targeted exams where dose is matched to indication/reason for exam; i.e. extremities or head) *Use of iterative reconstruction technique DLP: 1552 mGy-cm FINDINGS: AFTERSCHOOL: Unremarkable LUNGS: Lungs are well expanded with mild emphysematous changes and subpleural honeycombing seen bilaterally. There are 2 stable lung nodules in the left lower lobe subpleural, measured each 0.3 cm each, seen on image 404 series 4. Central airways are patent. MEDIASTINUM: Thyroid gland is unremarkable. There is mild mediastinal lymphadenopathy with the largest precarinal lymph nodes measured 1.6 cm. There is no hilar lymphadenopathy seen. Aorta is not dilated. There is no pericardial effusion. CORONARY ARTERY CALCIFICATION: Mild coronary artery calcifications seen PLEURA: There is no pleural effusion. No pleural mass or thickening. AXILLA: No lymphadenopathy. UPPER ABDOMEN: Unremarkable. OSSEOUS STRUCTURES: Unremarkable. CT/CT chest wo IV con IMPRESSION: 1. Mild emphysematous changes and stable lung nodules. 2. Honeycombing seen subpleural 3. Mild mediastinal lymphadenopathy. 4. Mild coronary artery calcifications. Fleischner guidelines were followed.
== END 2023-11-05 14:18 | disposition home or self-care (01) ==
LOC: HO.CT 14:17
PROVIDERS: PCP Internal Medicine; Visit Provider Internal Medicine
DX: R91.8 Other nonspecific abnormal finding of lung field (principal); J44.9 Chronic obstructive pulmonary disease, unspecified; Z72.0 Tobacco use
CPT/HCPCS: 71250

== ENCOUNTER 2023-12-16 14:29 | Outpatient (AMB) | payer OTHER, SELFPAY ==
[2023-12-16 14:33] VITALS: BP 130/82; PULSE 88; O2SAT 94; BMI 28.5
--- NOTE | 2023-12-16 14:33 | A.OFFVIS_ITS ---
Vital Signs 12/16/23 14:33 Height 5 ft Weight 146 lb BMI 28.5 BP 130/82 Blood Pressure Location Lt brachial Position Sitting Pulse 88 Pulse Source Pulse Oximeter Pulse Oximetry (%) 94 Oxygen Delivery Method Room Air Intake Visit Reasons: COPD Intake Note: pt is here for follow up of ct scan results. Dessert Cup Machine Feeder Required: No Allergies penicillin G [PENICILLIN G] Allergy (Unknown, Verified 12/16/23 14:59) RASH Medication List - Last Reconciled 12/16/23 by Jennie Esparza MD albuterol sulfate 90 mcg/actuation (ProAir HFA) 2 puffs inhalation Q4-6H PRN 30 days alprazolam 1 mg PO DAILY PRN atorvastatin 40 mg PO DAILY 90 days bisacodyl (Dulcolax (bisacodyl)) 20 mg (4 x 5 mg) PO ONCE 1 day bisacodyl (Dulcolax (bisacodyl)) 10 mg (2 x 5 mg) PO BEDTIME blood sugar diagnostic (FreeStyle Lite Strips) As directed check the BS QD blood-glucose meter (FreeStyle Lite Meter kit) As directed buprenorphine-naloxone 8-2 mg (Suboxone) 1 film sublingual TID 30 days cholecalciferol (vitamin D3) 25 mcg PO DAILY cyclobenzaprine 10 mg PO TID PRN dextroamphetamine-amphetamine 20 mg (Adderall) 20 mg PO BID donepezil 5 mg PO DAILY fexofenadine (Vanessa Allergy) 180 mg PO DAILY fluticasone propionate 50 mcg/actuation (Flonase Allergy Relief) 2 sprays intranasal DAILY hydrocortisone 2.5% (Proctosol HC) 1 appl [place] BID-QID PRN hydroxyzine HCl 100 mg PO BEDTIME labetalol 100 mg PO BID 90 days lancets (FreeStyle Lancets) As directed check BS QD lidocaine 5% 1 appl topical TID PRN lisinopril 5 mg PO DAILY magnesium oxide 400 mg PO DAILY montelukast (Singulair) 10 mg PO BEDTIME nicotine (polacrilex) 2 mg buccal Q2H omeprazole 20 mg PO DAILY 90 days polyethylene glycol 3350 (Miralax) 238 grams PO ONCE terbinafine HCl 250 mg PO DAILY 12 weeks trazodone 200 mg PO BEDTIME Do you need a note to return to daycare/school/sports/work: No HPI HPI COPD: Details: 63 YEARS OLD FEMALE, LIFELONG SMOKER, CURRENTLY CUT DOWN TO 10 CIGARETTES A DAY, HAS MILD INTERMITTENT COUGH, DENIES ANY WHEEZING OR SHORTNESS OF BREATH, SHE IS NOT USING ANY BRONCHODILATOR INHALERS. DOES HAVE ALBUTEROL HFA ON HAND WHICH SHE RARELY USES. SHE HAS SYMPTOMS ALLERGIC RHINITIS, BEING TREATED WITH MONTELUKAST, 1 TABLET DAILY AND FLONASE NOSE SPRAY P.R.N.. BECAUSE OF HER CONTINUED SMOKING SHE WAS ADVISED TO HAVE LUNG SCAN, SHE UNDERWENT REGULAR CT SCAN OF THE CHEST, THE RESULTS WILL BE DESCRIBED BELOW. HER PREVIOUS CT SCAN BACK IN 2019 DID SHOW MULTIPLE PULMONARY NODULES AND ALSO SOME FIBROTIC CHANGES IN THE BASILAR AREAS. PATIENT HAS NOT CONSENTED FOR UNDERGOING PULMONARY FUNCTION TEST. HER MAIN PROBLEM TODAY WAS HER ISSUE WITH THE [employer] WHO MAY CUT OF HER LACTIC SUPPLY. SHE WAS EXPECTING THAT I COULD SIGN SOME PAPERS FOR HER TO SAY THAT SHE NEEDS CONTINUED ELECTRIC SUPPLY. BUT SHE IS NOT ON ANY NEBULIZER OR OTHER MACHINE THAT RUNS ON ELECTIVE STAY. [facility] Medical History (Updated 12/16/23 @ 15:15 by Jennie Esparza MD) Pulmonary fibrosis Left ear pain Abnormal blood sugar Ear abrasion Cervical cancer screening Breast pain, right Breast mass, left Hemorrhoid Onychomycosis Osteoarthritis, hip, bilateral Vitamin D deficiency Anxiety and depression Hypercholesterolemia Opioid use disorder Abnormal EKG Nail fungus ADH disorder Pulmonary nodules/lesions, multiple COPD (chronic obstructive pulmonary disease) Surgical History H/O colonoscopy (~10/2018) History of vocal cord polypectomy Hx of removal of ovary History of section Family History Father Stroke Mother Hypertension Heart problem Stroke DDD (degenerative disc disease) Brother Heart attack Social History Housing: House Alcohol intake: current Patient Tobacco Use Status: Current everyday Tobacco user Tobacco use type: Cigarette Cigarettes Per Day: 10 e-Cigarette/Vaping Use: Never Used Second Hand Smoke Exposure: Yes service: No Current occupational status: disabled Cognitive needs: No Hearing needs: No Vision needs: Yes Review of Systems Const Denies body aches, Denies chills, Denies fatigue, Denies fever(s) and Denies headache(s) Eyes Denies blurry vision, Denies irritation, Denies itchy eyes and Denies loss of vision ENT Denies dysphagia, Denies vertigo, Denies headache(s), Denies epistaxis, Denies nasal congestion, Denies nasal discharge, Denies nasal obstruction and Denies sinus pain Card Denies chest pain, Denies rapid heart rate, Denies irregular heart rhythm, Reports dyspnea on exertion and Denies slow heart rate Resp Reports as per HPI and Reports dyspnea on exertion GI Reports bloating, Denies change in bowel habits, Denies change in stool character, Denies dysphagia, Denies heartburn, Denies nausea and Denies vomiting Denies difficulty voiding and Denies urinary incontinence Musc Denies abnormal gait, Denies back pain, Denies myalgias, Denies arthralgias, Denies muscle weakness and Denies stiffness Neuro Denies abnormal gait, Denies vertigo, Denies headache(s), Denies focal weakness, Denies loss of vision, Denies memory loss, Denies restless legs and Denies tremor(s) Psych Reports anxiety, Denies depression, Denies difficulty concentrating, Denies irritability, Denies memory loss and Denies mood swings Endo Reports no additional complaints and Denies fatigue Cullen/Lymph Reports no additional complaints Aller/Immun Reports no additional complaints and Denies itchy eyes Physical Exam Vital Signs: Last Vital Signs Pulse 88 12/16/23 14:33 BP 130/82 12/16/23 14:33 Pulse Ox 94 12/16/23 14:33 Oxygen Delivery Method Room Air 12/16/23 14:33 BMI result Body Mass Index 28.5 Const General: comfortable, no acute distress, alert and awake Orientation/consciousness: patient oriented x3 HEENT Head: Yes normal to inspection General nose exam: No nasal polyps present and No nasal discharge present Face and sinus: Yes sinuses nontender Mouth: oropharynx normal Throat: Yes posterior oropharynx normal Eyes General: appearance normal, both eyes and all related structures Neck Neck: Yes normal visual inspection, Yes no lymphadenopathy, Yes trachea midline and Yes no JVD Thyroid: Thyroid normal Chest Chest palpation & inspection: normal inspection of the chest, normal palpation of entire chest wall and no tenderness Resp Other: Percussion note hyper-resonant, breath sounds are distant with prolonged expiratory phase, no audible wheezes or crepitations. Cardio Palpation: normal PMI Rate: regular rate Rhythm: regular rhythm Heart sounds: no gallops and no murmurs Peripheral pulses: Peripheral pulses 2+ throughout GI Palpation (GI): Soft to palpation, nontender, No hepatosplenomegaly present and no masses Auscultation: normal bowel sounds Back/Spine/Pelvis Thoracic/Lumbar Spine: thoracic and lumbar spine normal to inspection Skin General skin exam: no rashes or lesions noted Neuro General: patient oriented x3 and no focal motor deficits Cranial nerves: Yes CN's II-XII intact bilaterally Extrem General: Yes normal to inspection, No no clubbing, cyanosis or edema (SHE DOES HAVE MILD CLUBBING OF THE FINGERNAILS.), Yes no calf tenderness and No venous stasis dermatitis Psych Appearance: grossly normal and other (Just a little anxious) Speech and movement: Normal speech and movement present Results Reviewed Results Reviewed: CT SCAN OF THE CHEST SHOWS, MINIMAL DEGREE OF SUB PLEURAL RETICULATION IN THE BASILAR AREAS, INDICATING MILD FIBROSIS. NO PULMONARY NODULES WERE NOTED. THERE IS ONE PARA-CARINAL LYMPH NODE 1.6 CM IN SIZE NO OTHER HILAR HER MEDIAS TINAL LYMPHADENOPATHY Assessment & Plan Assessment & Plan (1) Allergic rhinitis: Comment: CHRONIC ALLERGIC RHINITIS REMAINS UNDER CONTROL . Code(s): J30.9 - Allergic rhinitis, unspecified Category: Medical Plan: CONTINUE USING FLONASE 2 SPRAY EACH NOSTRIL DAILY. CONTINUE MONTELUKAST 10 MG DAILY. FEXOFENADINE 180 MG ONCE A DAY ONLY P.R.N. (2) Tobacco abuse: Comment: SHE HAS LONGSTANDING HISTORY OF SMOKING. CLAIMS THAT SHE HAS CUT DOWN TO HALF PACK A DAY. SHE WAS SUPPOSED TO BE IN ANNUAL LUNG SCREENING PROGRAM BUT HAS NOT SHOWN UP FOR LAST [address] SCAN OF THE CHEST SHOWS, THAT SHE HAS MINIMAL BIBASILAR SUB PLEURAL RETICULATION. IS 1 CARINAL LYMPH NODE 1.6 CM IN SIZE. NO PULMONARY NODULES Code(s): Z72.0 - Tobacco use Category: Medical Plan: TALKED TO THE PATIENT AT LENGTH AND ADVISE THAT SHE SHOULD QUIT OR AT LEAST CUT DOWN THE SMOKING. SHE IS NOT READY FOR THIS AND DIFFICULT TO CONVINCE HER TO STOP SMOKING COMPLETELY (3) COPD (chronic obstructive pulmonary disease): Comment: CINDY MAY HAVE CHRONIC OBSTRUCTIVE PULMONARY DISEASE, BUT MILD , AND DOES NOT REQUIRE ACTIVE TREATMENT. * SHE HAS NOT CONSENTED TO UNDERGO PULMONARY FUNCTION TEST. Code(s): J44.9 - Chronic obstructive pulmonary disease, unspecified Category: Medical Plan: ADVISED TO KEEP ALBUTEROL HFA ON HAND AND USE 1 OR 2 PUFFS Q 6 HOURS P.R.N.. (4) Pulmonary fibrosis: Comment: SHE IS MINIMAL RADIOLOGIC FINDINGS IN THE BASILAR AREAS INDICATING MINIMAL DEGREE OF FIBROSIS. IT IS BASICALLY ASYMPTOMATIC. Code(s): J84.10 - Pulmonary fibrosis, unspecified Category: Medical Plan: NO ACTIVE TREATMENT. IS NEEDED FOR THIS EXCEPT THE ADVICE THAT SHE NEEDS TO QUIT SMOKING. I HAD ASKED HER TO HAVE A PULMONARY FUNCTION TEST BUT SHE DOES NOT CONSENT FOR THAT. Coding Level of Care Code Est Pt Level 3 (50173) Diagnoses Allergic rhinitis J30.9 Tobacco abuse Z72.0 COPD (chronic obstructive pulmonary disease) J44.9 Pulmonary fibrosis J84.10
== END 2023-12-16 14:57 | disposition home or self-care (01) ==
PROVIDERS: PCP Internal Medicine; Visit Provider Internal Medicine
DX: J30.9 Allergic rhinitis, unspecified (principal); Z72.0 Tobacco use; J44.9 Chronic obstructive pulmonary disease, unspecified; J84.10 Pulmonary fibrosis, unspecified
CPT/HCPCS: 99213

== ENCOUNTER → 2023-12-16 14:29 | Outpatient (BNVA) | payer OTHER, SELFPAY | PROVIDERS: PCP Internal Medicine; Visit Provider Internal Medicine | DX: J44.9 Chronic obstructive pulmonary disease, unspecified (principal); J84.10 Pulmonary fibrosis, unspecified; J30.9 Allergic rhinitis, unspecified; Z72.0 Tobacco use | CPT/HCPCS: 99212 ==

== ENCOUNTER 2023-12-20 16:50 | Outpatient (AMB) | payer OTHER, SELFPAY ==
[2023-12-20 16:55] VITALS: BP 116/70; PULSE 92; O2SAT 95; BMI 29.2
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
== END 2023-12-20 17:45 | disposition home or self-care (01) ==
PROVIDERS: PCP Internal Medicine; Visit Provider Internal Medicine
DX: J44.9 Chronic obstructive pulmonary disease, unspecified (principal); F11.99 Opioid use, unspecified with unspecified opioid-induced disorder; Z12.11 Encounter for screening for malignant neoplasm of colon; R73.01 Impaired fasting glucose; Z72.0 Tobacco use; K21.9 Gastro-esophageal reflux disease without esophagitis; I10 Essential (primary) hypertension; E78.00 Pure hypercholesterolemia, unspecified; M54.50 Low back pain, unspecified
CPT/HCPCS: 83036; 99214

== ENCOUNTER 2024-01-06 15:09 | Outpatient (REF) | payer OTHER, SELFPAY ==
--- NOTE | ~2024-01-06 | MR_ITS ---
EXAMINATION: MR BRAIN WITHOUT AND WITH CONTRAST CLINICAL INFORMATION: Follow up pituitary macroadenoma. COMPARISON: 08/15/2021 MRI. TECHNIQUE: Multiplanar, multisequence MRI of the brain/sella was obtained before and after the intravenous administration of 4.0 mL Gadavist. FINDINGS: Redemonstrated is a predominantly hypoenhancing lesion on the left side of the pituitary gland, measuring 1.1 x 1.0 x 1.1 cm in maximum dimensions stable in size and configuration when compared to the previous exam. Additionally, again noted is a smaller hypoenhancing lesion at the junction of the pituitary infundibulum and the right side of the gland measuring approximately 4.5 mm maximum long axis in the sagittal plane stable in appearance. Normal enhancing pituitary gland parenchyma noted on the right stable in appearance. Some remodeling of the floor of the sella is suspected on the left which is unchanged. There is slight suprasellar extension of the mass on the left which is stable without cavernous sinus involvement. DWI sequence demonstrates no restricted diffusion to suggest acute or subacute cerebral ischemia. Redemonstrated is a chronic infarct involving the left caudate head with adjacent parenchymal gliosis stable in appearance. Chronic ischemic microangiopathy is again noted in the subcortical white matter of both cerebral hemispheres largely unchanged. Minimal chronic ischemic microangiopathy also suspected in the olayinka stable in appearance. No other intracranial mass lesions, space occupying process, mass effect or pathologic intracranial enhancement are suspected. The ventricular system and subarachnoid spaces are within normal limits stable in appearance without hydrocephalus. Incidental note is made of a 6 mm benign pineal cyst stable in appearance. Normal signal voids are seen within the visualized major intracranial vessels. Bone marrow signal intensity appears grossly within normal limits. MR/MR head/brain wo/w con IMPRESSION: 1. Stable appearance to the previously noted pituitary lesions, as described above. No mass effect on the optic apparatus. 2. 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 3. A 6 mm benign pineal cyst stable in appearance. Electronically signed by: Davi Malik MD 01/24/2024 04:31 PM EDT
[2024-01-06] MEDS: gadobutroL 7.5 ML VIAL IVPUSH (16:29)
== END 2024-01-06 15:10 | disposition home or self-care (01) ==
LOC: HO.MRI 15:09
PROVIDERS: PCP Internal Medicine; Visit Provider Psychiatry & Neurology Neurology
DX: D35.2 Benign neoplasm of pituitary gland (principal)
CPT/HCPCS: 70553; A9585

== ENCOUNTER 2024-01-12 14:01 | Outpatient (AMB) | payer OTHER, SELFPAY ==
--- NOTE | 2024-01-12 14:10 | A.OFFVISCC_ITS ---
Intake Visit Reasons: MAT VISIT Allergies penicillin G [PENICILLIN G] Allergy (Unknown, Verified 12/20/23 16:55) RASH HPI HPI MAT VISIT: Details: Patient presents for follow up Currently prescribed Suboxone 8mg TID Reporting increased pain and overall discomfort --? if sciatic recurrence Recently saw PCP Xrays and other diagnostics ordered PT starting January 16 has been on suboxone for about 4 years [facility] Medical History (Updated 01/12/24 @ 14:20 by Elinor Mckeon CNP) Pulmonary fibrosis Left ear pain Abnormal blood sugar Ear abrasion Cervical cancer screening Breast pain, right Breast mass, left Hemorrhoid Onychomycosis Osteoarthritis, hip, bilateral Vitamin D deficiency Anxiety and depression Hypercholesterolemia Opioid use disorder Abnormal EKG Nail fungus ADH disorder Pulmonary nodules/lesions, multiple COPD (chronic obstructive pulmonary disease) Surgical History H/O colonoscopy (~10/2018) History of vocal cord polypectomy Hx of removal of ovary History of section Family History (Updated 12/20/23 @ 16:56 by Arlyn Amos [facility]) Father Stroke Mother Hypertension Heart problem Stroke DDD (degenerative disc disease) Brother Heart attack Social History Housing: House Alcohol intake: current Patient Tobacco Use Status: Current everyday Tobacco user Tobacco use type: Cigarette Cigarettes Per Day: 8 e-Cigarette/Vaping Use: Never Used Second Hand Smoke Exposure: Yes service: No Current occupational status: disabled Cognitive needs: No Hearing needs: No Vision needs: Yes Review of Systems Const Reports as per HPI Physical Exam Const General: cooperative, healthy appearing and alert Orientation/consciousness: patient oriented x3 Neuro General: patient oriented x3 Psych Appearance: well kempt Speech and movement: Clear speech present Affect: normal affect Attitude: cooperative Thought process: Normal thought process present Assessment & Plan Assessment & Plan (1) Opioid use disorder, moderate, in sustained remission: Code(s): F11.21 - Opioid dependence, in remission Category: Medical Plan: * continue suboxone at current dose * follow up 3 months
== END 2024-01-12 14:33 | disposition home or self-care (01) ==
PROVIDERS: PCP Internal Medicine; Visit Provider Nurse Practitioner Psychiatric/Mental Health
DX: F11.21 Opioid dependence, in remission (principal)
CPT/HCPCS: 99213

== ENCOUNTER 2024-01-12 14:01 | Outpatient (REF) | payer OTHER, SELFPAY ==
--- NOTE | ~2024-01-12 | XR_ITS ---
EXAMINATION: XR LUMBOSACRAL SPINE CLINICAL INFORMATION: Lower back pain. COMPARISON: None available. TECHNIQUE: Three views of the lumbosacral spine. FINDINGS: Normal vertebral body alignment. The lumbar lordosis is maintained. No acute fracture or subluxation. No loss of vertebral body height. Multilevel loss of intervertebral disc height with endplate osteophytes, most prominent at L4-L5. Prominent lower lumbar spine facet arthropathy. No concerning lytic or blastic osseous lesion. XR/XR lumbar spine 2-3V IMPRESSION: Multilevel degenerative disc disease, as prominent at L4-L5. Prominent lower lumbar spine facet arthropathy. Electronically signed by: Brayan Walker MD 01/27/2024 08:56 PM EDT
--- NOTE | ~2024-01-12 | XR_ITS ---
EXAMINATION: XR SACROILIAC JOINTS CLINICAL INFORMATION: Lower back pain. COMPARISON: None available. TECHNIQUE: 3 views of the sacroiliac joints FINDINGS: Mild bilateral sacroiliac joint space narrowing with tiny marginal osteophytes. No periarticular erosion. No concerning lytic or blastic osseous lesion. No fracture or dislocation. Tiny phleboliths within the pelvis. XR/XR sacroiliac joint min 3V IMPRESSION: Mild bilateral sacroiliac degenerative arthritis. Electronically signed by: Brayan Walker MD 01/27/2024 08:57 PM EDT
--- NOTE | ~2024-01-12 | XR_ITS ---
EXAMINATION: XR SHOULDER, RIGHT CLINICAL INFORMATION: Right shoulder pain. COMPARISON: Right shoulder radiographs dated 10/09/2022. TECHNIQUE: AP, Grashey, and scapular Y views of the right shoulder. FINDINGS: Moderate bony humeral joint space narrowing with marginal osteophytes, unchanged. No acute fracture or dislocation. No concerning lytic or blastic osseous lesion. No abnormal soft tissue calcification. XR/XR shoulder RT min 2V IMPRESSION: Moderate glenohumeral osteoarthritis, unchanged. Electronically signed by: Brayan Walker MD 01/27/2024 08:57 PM EDT
--- NOTE | ~2024-01-12 | XR_ITS ---
EXAMINATION: XR KNEE AP STANDING CLINICAL INFORMATION: Right knee pain. COMPARISON: None available. TECHNIQUE: AP bilateral standing view of the knees was obtained. FINDINGS: No acute fracture or dislocation. No significant joint space narrowing or marginal osteophytes. No osseous erosion. No abnormal soft tissue calcification. XR/XR knee standing BI IMPRESSION: Unremarkable examination. Electronically signed by: Brayan Walker MD 01/27/2024 08:43 PM EDT
--- NOTE | ~2024-01-12 | XR_ITS ---
EXAMINATION: XR CERVICAL SPINE CLINICAL INFORMATION: Cervicalgia. COMPARISON: None available. TECHNIQUE: AP, lateral, open mouth, and foraminal views of the cervical spine. FINDINGS: The C7 vertebral body is largely obscured by overlying soft tissues. Normal vertebral body alignment. The cervical lordosis is maintained. Normal atlantoaxial alignment. No loss of vertebral body or intervertebral disc height. Tiny anterior endplate osteophytes at C5-C6. No concerning lytic or blastic osseous lesion. Unremarkable prevertebral soft tissues. XR/XR cervical spine 2V IMPRESSION: 1. Minimal degenerative disc disease at C5-C6. 2. The C7 vertebral body is largely obscured by overlying soft tissues. Electronically signed by: Brayan Walker MD 01/27/2024 08:55 PM EDT
== END 2024-01-12 14:02 | disposition home or self-care (01) ==
LOC: HO.XRAY 14:01
PROVIDERS: Absent Provider Internal Medicine; PCP Internal Medicine; Visit Provider Nurse Practitioner Psychiatric/Mental Health
DX: M25.561 Pain in right knee (principal); M19.011 Primary osteoarthritis, right shoulder; M47.818 Spondylosis without myelopathy or radiculopathy, sacral and sacrococcygeal region; M51.36 Other intervertebral disc degeneration, lumbar region; M50.322 Other cervical disc degeneration at C5-C6 level
CPT/HCPCS: 72040; 72100; 72202; 73030; 73565; 99212

== ENCOUNTER 2024-02-11 12:49 | Outpatient (RCR) | payer OTHER, SELFPAY ==
--- NOTE | 2024-02-11 15:08 | MHC.PT.EP ---
[facility] [place] Office [place] Office [place] Office [address] [phone] F: [phone] F: [phone] F: [phone] F: [phone] Physical Therapy Plan of Care Date of Evaluation: 02/11/24 Date of Surgery: Diagnosis: low back pain Assessment: Patient is a 64 year old R handed female who presents with s/s consistent with low back pain. She does not work but does enjoy gardening and going for walks. Patient past medical history includes opioid use disorder and ADHD. Current impairments include pain, flexibility, ROM, strength, activity tolerance and functional mobility. Functional limitations include decreased ability to walk, dress, bend, squat, stand and garden . Patient is motivated with good rehab potential. Skilled PT will address impairments and functional limitations in order to achieve goals. Frequency and Duration: The patient will be seen 2x/week for 5 weeks Short Term Goals: I with HEP -2 weeks AROM rotation 75% and pain free - 3 weeks Able to walk 5 minutes without increased pain - 3 weeks Presetter Operator Goals: Oswestry 24% or less - 5 weeks TTP absent - 5 weeks Max pain with ADLs /10 - 5 weeks Treatment Plan: Modalities to reduce pain, spasms and effusion. Manual therapy to restore motion and function. Therapeutic exercise to improve strength and flexibility. Neuromuscular re-education for posture and balance. Therapeutic activities to return to functional activities of daily living. Electronically signed by: Moses Stafford, PT Please sign and return to therapist. Thank you for your referral.
--- NOTE | 2024-07-28 07:44 | MHC.PT.DC ---
[facility] [place] [facility] [place] [facility] [place] [facility] [address] [place] [address] [facility] [phone] F: [phone] F: [phone] F: [phone] F: [phone] Physical Therapy Discharge Report Diagnosis: low back pain Date of Surgery: Date of Evaluation: 02/11/24 Date of Discharge: 03/10/24 Treatments to Date: 1 Cancellations to Date: No Shows to Date: Discharge Status: Patient Elected to Stop Discharge Summary: Patient is a 64 year old R handed female who presents with s/s consistent with low back pain. She does not work but does enjoy gardening and going for walks. Patient past medical history includes opioid use disorder and ADHD. Current impairments include pain, flexibility, ROM, strength, activity tolerance and functional mobility. Functional limitations include decreased ability to walk, dress, bend, squat, stand and garden . Patient is motivated with good rehab potential. Skilled PT will address impairments and functional limitations in order to achieve goals. Electronically signed by: Moses Stafford, PT Please sign and return to therapist. Thank you for your referral.
== END 2024-07-28 07:45 | disposition home or self-care (01) ==
LOC: HO.PTCHIC 12:49
PROVIDERS: PCP Internal Medicine; Visit Provider Internal Medicine
DX: M54.50 Low back pain, unspecified (principal)
CPT/HCPCS: 97110; 97162

== ENCOUNTER 2024-03-16 15:30 | Outpatient (AMB) | payer OTHER, SELFPAY ==
[2024-03-16 15:33] VITALS: BP 168/94; PULSE 107; O2SAT 97; BMI 29.2
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
== END 2024-03-16 16:25 | disposition home or self-care (01) ==
LOC: HO.HMCH 15:30
PROVIDERS: PCP Internal Medicine
DX: M25.552 Pain in left hip (principal); M54.50 Low back pain, unspecified; I10 Essential (primary) hypertension

== ENCOUNTER → 2024-03-16 15:30 | Outpatient (BNVA) | payer OTHER, SELFPAY | PROVIDERS: PCP Internal Medicine | DX: M25.552 Pain in left hip (principal); M54.50 Low back pain, unspecified; I10 Essential (primary) hypertension | CPT/HCPCS: 99212 ==

== ENCOUNTER 2024-03-31 13:04 | Outpatient (REF) | payer OTHER, SELFPAY ==
[2024-03-31 13:55] LABS: Estimated Average Glucose 123 mg/dL; Hemoglobin A1C 129.1984 umol/L; Hemoglobin A1c % 5.9 % (<6.0); Total Hemoglobin (HGBA1C) 3173.2332 umol/L
[2024-03-31 14:17] LABS: Alanine Aminotransferase 16 U/L (0-31); Albumin Level 4.1 g/dL (3.5-5.0); Alkaline Phosphatase 81 U/L (39-117); Anion Gap 9 (12-20); Aspartate Amino Transferase 22 U/L (5-31); Bilirubin Total 0.3 mg/dL (0.0-1.0); Blood Urea Nitrogen 20 mg/dL (9-16); Calcium 10.4 mg/dL (8.4-10.2); Carbon Dioxide 28 mmol/L (22-29); Chloride 104 mmol/L (96-108); Cholesterol 290 mg/dL (<200); Estimated Glomerular Filt Rate 60; Glucose Random 142 mg/dL (60-115); HDL Cholesterol 56 mg/dL (>40); LDL Cholesterol Calculated 214 mg/dL (<100); Sodium 136 mmol/L (135-145); Total Protein 7.1 g/dL (6.5-8.0); Triglycerides 100 mg/dL (<150)
== END 2024-03-31 13:05 | disposition home or self-care (01) ==
LOC: HO.LAB 13:04
PROVIDERS: PCP Internal Medicine; Visit Provider Internal Medicine
DX: E78.00 Pure hypercholesterolemia, unspecified (principal); R73.01 Impaired fasting glucose
CPT/HCPCS: 36415; 80053; 80061; 83036; 99202

== ENCOUNTER 2024-03-31 13:46 | Outpatient (AMB) | payer OTHER, SELFPAY ==
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
[2024-03-31 13:53] VITALS: BP 141/100; PULSE 80; O2SAT 96; BMI 29.3
== END 2024-03-31 14:23 | disposition home or self-care (01) ==
PROVIDERS: PCP Internal Medicine; Visit Provider Nurse Practitioner Family
DX: M54.50 Low back pain, unspecified (principal); M51.369 Other intervertebral disc degeneration, lumbar region without mention of lumbar back pain or lower extremity pain; M54.16 Radiculopathy, lumbar region; M47.817 Spondylosis without myelopathy or radiculopathy, lumbosacral region; M53.3 Sacrococcygeal disorders, not elsewhere classified
CPT/HCPCS: 99204; G2211

== ENCOUNTER 2024-04-04 14:39 | Outpatient (AMB) | payer OTHER, SELFPAY ==
--- NOTE | 2024-04-04 14:42 | A.OFFPC_ITS ---
Vital Signs 04/04/24 14:43 Height 4 ft 11.5 in Weight 144 lb BMI 28.6 BP 124/78 Blood Pressure Location Lt brachial Position Sitting Pulse 90 Pulse Source Pulse Oximeter Pulse Oximetry (%) 96 Oxygen Delivery Method Room Air Intake Visit Reasons: 3 MONTHS BACK PAIN Allergies penicillin G [PENICILLIN G] Allergy (Unknown, Verified 04/04/24 14:50) RASH Medication List - Last Reconciled 04/04/24 by Fany Cummings PA-C albuterol sulfate 90 mcg/actuation (ProAir HFA) 2 puffs inhalation Q4-6H PRN 30 days alprazolam 1 mg PO DAILY PRN atorvastatin 40 mg PO DAILY 90 days bisacodyl (Dulcolax (bisacodyl)) 20 mg (4 x 5 mg) PO ONCE 1 day bisacodyl (Dulcolax (bisacodyl)) 10 mg (2 x 5 mg) PO BEDTIME blood sugar diagnostic (FreeStyle Lite Strips) As directed check the BS QD blood-glucose meter (FreeStyle Lite Meter kit) As directed buprenorphine-naloxone 8-2 mg (Suboxone) 1 film sublingual TID 30 days cholecalciferol (vitamin D3) 25 mcg PO DAILY cyclobenzaprine 10 mg PO TID PRN dextroamphetamine-amphetamine 20 mg (Adderall) 20 mg PO BID donepezil 5 mg PO DAILY fexofenadine (Vanessa Allergy) 180 mg PO DAILY fluticasone propionate 50 mcg/actuation (Flonase Allergy Relief) 2 sprays intranasal DAILY hydrocortisone 2.5% (Proctosol HC) 1 appl MT BID-QID PRN hydroxyzine HCl 100 mg PO BEDTIME labetalol 100 mg PO BID 90 days lancets (FreeStyle Lancets) As directed check BS QD lidocaine 5% 1 appl topical TID PRN lisinopril 5 mg PO DAILY magnesium oxide 400 mg PO DAILY meloxicam 7.5 mg PO DAILY montelukast (Singulair) 10 mg PO BEDTIME nicotine (polacrilex) 2 mg buccal Q2H omeprazole 20 mg PO DAILY 90 days polyethylene glycol 3350 (Miralax) 238 grams PO ONCE terbinafine HCl 250 mg PO DAILY 12 weeks trazodone 200 mg PO BEDTIME Tobacco use date assessed: 08/11/23 Fall risk assessment: No Falls in past year Last assessed Fall Risk: 04/04/24 Dental Screening Dental Screen Date: 12/20/23 HPI 3 MONTHS BACK PAIN HPI Details 64 year-old overweight female smoker wit h COPD, hypertension h ypercholesterolemia GERD impaired glucose tolerance generalized anxiety disorder and pulmonary fibrosis coming in for follow-up. Patient continues to follow with pain management Center for lumbar radiculopathy and degenerative disc disease at last visit MRI of the lumbar spine was ordered. Patient states she has right knee swelling which has been present for several months. She has been evaluated for this concern in the past but still has pain. She continues to have leg cramping at nighttime in bilateral lower extremities. Her breathing has been good and only use inhaler as needed. [facility] Medical History Pulmonary fibrosis Left ear pain Abnormal blood sugar Ear abrasion Cervical cancer screening Breast pain, right Breast mass, left Hemorrhoid Onychomycosis Osteoarthritis, hip, bilateral Vitamin D deficiency Anxiety and depression Hypercholesterolemia Opioid use disorder Abnormal EKG Nail fungus ADH disorder Pulmonary nodules/lesions, multiple COPD (chronic obstructive pulmonary disease) Surgical History H/O colonoscopy (~10/2018) History of vocal cord polypectomy Hx of removal of ovary History of section Family History Father Stroke Mother Hypertension Heart problem Stroke DDD (degenerative disc disease) Brother Heart attack Social History Housing: House Alcohol intake: current Patient Tobacco Use Status: Current everyday Tobacco user Tobacco use type: Cigarette Cigarettes Per Day: 8 e-Cigarette/Vaping Use: Never Used Second Hand Smoke Exposure: Yes service: No Current occupational status: disabled Cognitive needs: No Hearing needs: No Vision needs: Yes Questionnaire Thrive Questionnaire Date Thrive assessed: 12/20/23 I am a: Patient What is your living situation today?: I have a steady place to live Within the past 12 months, did the food you bought not last and you didn't have the money to get more?: Never true Within the past 12 months, did you worry whether your food would run out before you got money to buy more?: Never true Do you have trouble paying for medicines?: No Do you have trouble getting transportation to medical appointments?: No Do you have trouble paying your heating and electricity bill?: No Do you have trouble taking care of your child, family member or friend?: No Do you have trouble with day-to-day activities such as bathing, preparing meals, shopping, managing finances, etc.?: No Are you currently unemployed and looking for a job?: No Are you interested in more education?: No Currently or been in a relationship where the following occur: No concerns reported THRIVE Score: 0 AUDIT C Alcohol Use Questionnaire (AUDIT-C) 1. How often do you have a drink containing alcohol?: Monthly or less 2. How many drinks containing alcohol do you have on a typical day when you are drinking?: 1 or 2 3. How often do you have six or more drinks on one occasion?: Never Total Score: 1 Score Reviewed/Action Taken: No ALBERTO-7 AMB Questionnaire ALBERTO-7 Date ALBERTO - 7 assessed: 08/11/23 Source: Developed by Drs. Dean Real, Shireen Godfrey, Mj Zuñiga and colleagues, with an educational ramón from [employer]. Review of Systems Const Denies body aches, Denies chills, Denies fever(s), Denies headache(s) and Denies poor appetite Eyes Reports no additional complaints ENT Denies dizziness and Denies headache(s) Card Denies chest pain, Denies lightheadedness and Denies dyspnea Resp Denies cough and Denies dyspnea GI Denies abdominal pain, Denies constipation, Denies diarrhea, Denies nausea and Denies vomiting Reports no additional complaints Musc Details: Right knee pain, back pain Reports no additional complaints and Reports abnormal gait Skin/Breast Reports system reviewed and no additional complaints, except as documented Neuro Reports abnormal gait, Denies dizziness and Denies headache(s) Psych Reports no additional complaints Physical exam (Primary Care) Vital Signs: Last Vital Signs Pulse 90 04/04/24 14:43 BP 124/78 04/04/24 14:43 Pulse Ox 96 04/04/24 14:43 Oxygen Delivery Method Room Air 04/04/24 14:43 BMI result Body Mass Index 28.6 Tobacco/Smoking Status: Tobacco use Status Tobacco use date assessed 08/11/23 04/04/24 14:44 Patient Tobacco Use Status Current everyday Tobacco 04/04/24 14:44 Tobacco use type Cigarette 04/04/24 14:44 e-Cigarette/Vaping Use Never Used 04/04/24 14:44 Thrive Assessment: Date of Thrive Assessment Date Thrive assessed 12/20/23 04/04/24 14:44 Currently or been in a relationship where the following occur: No concerns reported Const General: cooperative, healthy appearing, comfortable and no acute distress Orientation/consciousness: patient oriented x3 HENMT Head: Yes normocephalic Ears: hearing grossly normal bilaterally General nose exam: Normal external nose present Eyes General: appearance normal, both eyes and all related structures Conjunctivae: conjunctivae normal Neck Neck: Yes full ROM and Yes no lymphadenopathy Resp Effort & Inspection: normal respiratory effort Auscultation: clear to auscultation bilaterally, no crackles, no rales, no rhonchi and no wheezes Cardio Rate: regular rate Rhythm: regular rhythm Skin General skin exam: no rashes or lesions noted Neuro General: patient oriented x3 Gait exam (Neuro): Normal gait present Extrem Other: Right knee pain and swelling without bilateral calf swelling, pain, warmth. General: Yes normal to inspection, Yes full ROM and No edema Psych Affect: normal affect Attitude: cooperative Insight: Good insight present (Psych) Judgement: Good judgement present (Psych) Coding Level of Care Code Est Pt Level 3 (25568) Diagnoses Lumbar radiculopathy M54.16 Lumbar degenerative disc disease M51.369 Impaired fasting blood sugar R73.01 Gastroesophageal reflux disease, unspecified whether esophagitis present K21.9 Esophagitis presence: esophagitis presence not specified Hypercholesterolemia E78.00 Tobacco abuse Z72.0 Hypertension I10 COPD (chronic obstructive pulmonary disease) J44.9 Right knee pain M25.561 Hypercalcemia E83.52 Assessment & Plan Assessment & Plan (1) Lumbar radiculopathy: Code(s): M54.16 - Radiculopathy, lumbar region Category: Medical Plan: Continue to follow with pain management. MRI ordered. (2) Lumbar degenerative disc disease: Code(s): M51.369 - Other intervertebral disc degeneration, lumbar region without mention of lumbar back pain or lower extremity pain Category: Medical Plan: Continue to follow with pain management. MRI ordered. (3) Impaired fasting blood sugar: Code(s): R73.01 - Impaired fasting glucose Category: Medical Plan: Decrease the amount of carbohydrates such as pasta, bread, rice, and potatoes and limit the amount of sweets. Although fruits are generally healthy they should be eaten in moderation as they are still high in sugar. (4) GERD (gastroesophageal reflux disease): Code(s): K21.9 - Gastro-esophageal reflux disease without esophagitis Category: Medical Qualifiers: Esophagitis presence: esophagitis presence not specified Qualified Code(s): K21.9 - Gastro-esophageal reflux disease without esophagitis Plan: Avoid trigger foods such as citrus, tomato products, soda, caffeine, spicy foods and other foods that may be irritating to your stomach. Avoid laying flat 3-4 hours after eating and elevate the head of the bed 30 degrees to prevent acid from moving into the esophagus. Continue on omeprazole (5) Hypercholesterolemia: Code(s): E78.00 - Pure hypercholesterolemia, unspecified Category: Medical Plan: Avoid foods that are high in cholesterol such as red meat, fried foods, eggs and baked goods. Triglyceride goal of less than 150 and LDL goal of less than 130. Continue on atorvastatin cholesterol elevated on last labs however patient had not been taking atorvastatin. We will repeat in 3 months. (6) Tobacco abuse: Comment: SHE HAS LONGSTANDING HISTORY OF SMOKING. CLAIMS THAT SHE HAS CUT DOWN TO HALF PACK A DAY. SHE WAS SUPPOSED TO BE IN ANNUAL LUNG SCREENING PROGRAM BUT HAS NOT SHOWN UP FOR LAST [address] SCAN OF THE CHEST SHOWS, THAT SHE HAS MINIMAL BIBASILAR SUB PLEURAL RETICULATION. IS 1 CARINAL LYMPH NODE 1.6 CM IN SIZE. NO PULMONARY NODULES December [address]23 CT Code(s): Z72.0 - Tobacco use Category: Medical Plan: Smoking cigarettes and the use of tobacco can be harmful. We discussed the importance of stopping and options to aid in smoking cessation. (7) Hypertension: Code(s): I10 - Essential (primary) hypertension Category: Medical Plan: Continue on current blood pressure medication. Avoid salt intake and encourage healthy diet and regular exercise. (8) COPD (chronic obstructive pulmonary disease): Comment: CINDY MAY HAVE CHRONIC OBSTRUCTIVE PULMONARY DISEASE, BUT MILD , AND DOES NOT RE QUIRE ACTIVE TREATMENT. * SHE HAS NOT CONSENTED TO UNDERGO PULMONARY FUNCTION TEST. Code(s): J44.9 - Chronic obstructive pulmonary disease, unspecified Category: Medical Plan: Continue on inhalers (9) Right knee pain: Code(s): M25.561 - Pain in right knee Category: Medical Plan: Patient continues to have right knee pain is declining imaging and physical therapy at this time but would like to see [facility] for this concern. Referral placed today. (10) Hypercalcemia: Code(s): E83.52 - Hypercalcemia Category: Medical Plan: Patient had elevated calcium on last blood work ordered for parathyroid hormone for further evaluation. Plan This note was constructed using voice recognition software. While every effort has been made to ensure accuracy and wheat farmer, still areas may have been included sometimes these areas may affect the content or meeting of the given symptoms. Total time spent caring for the patient today was 30 minutes. This includes time spent before the visit reviewing the chart, time spent during the visit, and time spent after the visit and documentation. Orders: Orders Complete Blood Count Auto Diff 3 Months Z00.00 - Encounter for general adult me dical examination without abnormal findings Free T4 (Free Thyroxine) Today Z00.00 - Encounter for general adult medical examination without abnormal findings Lipid Panel 3 Months E78.00 - Pure hypercholesterolemia, unspecified TSH reflex Free T4 Today Z00.00 - Encounter for general adult medical examination without abnormal findings Parathyroid Hormone Intact Today E83.52 - Hypercalcemia Medications: New tizanidine 2 mg PO BEDTIME PRN 20 caps 0RF muscle spasticity Refilled hydrocortisone 2.5% (Proctosol HC) 1 appl MT BID-QID PRN 30 grams 1RF hemorrhoids K64.9 - Unspecified hemorrhoids Discontinued cyclobenzaprine Discontinued Reason: Patient no longer taking 10 mg PO TID PRN 30 tabs 0RF muscle spasm M54.2 - Cervicalgia
[2024-04-04 14:43] VITALS: BP 124/78; PULSE 90; O2SAT 96; BMI 28.6
== END 2024-04-04 15:17 | disposition home or self-care (01) ==
PROVIDERS: PCP Internal Medicine
DX: M54.16 Radiculopathy, lumbar region (principal); M51.369 Other intervertebral disc degeneration, lumbar region without mention of lumbar back pain or lower extremity pain; R73.01 Impaired fasting glucose; J44.9 Chronic obstructive pulmonary disease, unspecified; K21.9 Gastro-esophageal reflux disease without esophagitis; E78.00 Pure hypercholesterolemia, unspecified; Z72.0 Tobacco use; I10 Essential (primary) hypertension; M25.561 Pain in right knee; E83.52 Hypercalcemia

== ENCOUNTER → 2024-04-04 14:39 | Outpatient (BNVA) | payer OTHER, SELFPAY | PROVIDERS: PCP Internal Medicine | DX: M54.16 Radiculopathy, lumbar region (principal); M51.369 Other intervertebral disc degeneration, lumbar region without mention of lumbar back pain or lower extremity pain; R73.01 Impaired fasting glucose; K21.9 Gastro-esophageal reflux disease without esophagitis; E78.00 Pure hypercholesterolemia, unspecified; I10 Essential (primary) hypertension; J44.9 Chronic obstructive pulmonary disease, unspecified; M25.561 Pain in right knee; E83.52 Hypercalcemia; Z72.0 Tobacco use | CPT/HCPCS: 99212 ==

== ENCOUNTER 2024-04-05 13:03 | Outpatient (AMB) | payer OTHER, SELFPAY ==
--- NOTE | 2024-04-05 13:09 | A.OFFVISCC_ITS ---
Intake Visit Reasons: MAT Tele Allergies penicillin G [PENICILLIN G] Allergy (Unknown, Verified 04/04/24 14:50) RASH HPI HPI MAT Tele: Details: Patient presents for follow up via telehealth Currently prescribed Suboxone 8mg TID Tolerating current dose Saw PCP yesterday and pain management last week awaiting approval for an MRI due to ongoing back pain Review of Systems Const Reports as per HPI and Reports difficulty sleeping (due to mice issue ) Telehealth Telehealth Telehealth Platform: Telephone Location of provider rendering services: practice address Location of patient: address on file Patient Identification confirmed using: Name, : Yes Telehealth method: voice only Patient verbally consented to treatment: Yes Patient verbally consented to billing insurance company: Yes Minutes spent on Phone/Video with Pt.: 15 Assessment & Plan Assessment & Plan (1) Opioid use disorder, moderate, in sustained remission: Code(s): F11.21 - Opioid dependence, in remission Category: Medical Plan: * continue suboxone at current dose * follow up 3 months PFS Medical History Pulmonary fibrosis Left ear pain Abnormal blood sugar Ear abrasion Cervical cancer screening Breast pain, right Breast mass, left Hemorrhoid Onychomycosis Osteoarthritis, hip, bilateral Vitamin D deficiency Anxiety and depression Hypercholesterolemia Opioid use disorder Abnormal EKG Nail fungus ADH disorder Pulmonary nodules/lesions, multiple COPD (chronic obstructive pulmonary disease) Surgical History H/O colonoscopy (~10/2018) History of vocal cord polypectomy Hx of removal of ovary History of section Family History Father Stroke Mother Hypertension Heart problem Stroke DDD (degenerative disc disease) Brother Heart attack Social History Housing: House Alcohol intake: current Patient Tobacco Use Status: Current everyday Tobacco user Tobacco use type: Cigarette Cigarettes Per Day: 8 e-Cigarette/Vaping Use: Never Used Second Hand Smoke Exposure: Yes service: No Current occupational status: disabled Cognitive needs: No Hearing needs: No Vision needs: Yes
== END 2024-04-05 13:24 | disposition home or self-care (01) ==
PROVIDERS: PCP Internal Medicine; Visit Provider Nurse Practitioner Psychiatric/Mental Health
DX: F11.21 Opioid dependence, in remission (principal)
CPT/HCPCS: 98967

== ENCOUNTER → 2024-04-05 13:03 | Outpatient (BNVA) | payer OTHER, SELFPAY | PROVIDERS: PCP Internal Medicine; Visit Provider Nurse Practitioner Psychiatric/Mental Health | DX: F11.21 Opioid dependence, in remission (principal) ==

== ENCOUNTER → 2024-05-17 14:30 | Outpatient (BNV) | payer OTHER, SELFPAY | PROVIDERS: PCP Internal Medicine; Visit Provider Radiology Diagnostic Radiology | DX: M81.0 Age-related osteoporosis without current pathological fracture (principal) | CPT/HCPCS: 77080 ==

== ENCOUNTER 2024-05-17 14:40 | Outpatient (REF) | payer OTHER, SELFPAY ==
--- NOTE | ~2024-05-17 | MM_ITS ---
EXAMINATION: Dual-Energy X-ray Absorptiometry - Bone Density Study HISTORY: Estrogen deficiency TECHNIQUE: [employer] Dual energy absorptiometry (DEXA) of the lumbar spine, total left hip, and femoral neck was performed. COMPARISON: Comparison is made with the prior examination dated 02/25/2021. FINDINGS: The bone mineral density of the lumbar spine is 0.835 with a T-score of -2.9, and a Z-score of -1.4. This represents a BMD change of -6.6% compared to the prior exam. This is statistically significant. The bone mineral density of the left total hip is 0.720 with a T-score of -2.3, and a Z-score of -1.2. This represents BMD change of -3.2% compared to the prior exam. This is not statistically significant. The bone mineral density of the left femoral neck is 0.816 with a T-score of -1.6, and a Z-score of -0.2. This represents BMD change of 8.9% compared to the prior exam. MM/XR DEXA axial skeleton IMPRESSION: Based on bone mineral density, and according to World Health Organization (WHO) criteria, the diagnosis is consistent with osteoporosis. All bone density values are in grams per centimeter squared. At this facility, the least significant change in BMD with 95% confidence is 0.022 at the lumbar spine, 0.027 at the hip, and 0.023 at the distal 1/3 radius. Electronically signed by: Dean Vasquez MD 05/19/2024 08:20 AM [facility]
--- OUTSIDE RECORDS SUMMARY | 2024-05-17 14:43 | XMS_ITS | Data Portability ---
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 Plan of Treatment Reminders Order Date Submit Date Provider Last Modified By Organization Details Last Modified Time Details Appointments None record ed. Lab None record ed. Referral None record ed. Procedures None record ed. Surgeries None record ed. Imaging None record ed. Medication Orders None record ed. Patient TargetsNo targets recorded. Patient InstructionsNo instructions recorded. Reason for Referral None Reported. Medical Equipment None Reported. Medications Name Sig Start Date Stop Date Status Note LastModified by Organization Details LastModified Time atorvastatin 20 mg tablet TAKE 1 TABLET BY MOUTH DAILY active Not Available Not Available Not Available alprazolam 1 mg tablet TAKE 1 TABLET BY MOUTH TWICE DAILY NEEDED active Not Available Not Available No t Available nicotine (polacrilex) 2 mg gum CHEW 1 PIECE BY MOUTH EVERY 2 HOURS active Not Available Not Available No t Available metronidazol e 500 mg tablet TAKE 1 TABLET BY MOUTH TWICE DAILY FOR 7 DAYS active Not Available Not Available No t Available hydroxyzine HCl 50 mg tablet TAKE 2 TABLETS BY MOUTH AT BEDTIME NEEDED active Not Available Not Available No t Available hydrocortiso ne 2.5 % topical cream with perineal applicator APPLY RECTALLY TO THE AFFECTED AREA 2 TO 4 TIMES DAILY NEEDED FOR HEMORRHOIDS active Not Available Not Available Not Available terbinafine HCl 250 mg tablet TAKE 1 TABLET BY MOUTH DAILY FOR 12 WEEKS active Not Available Not Available No t Available trazodone 100 mg tablet TAKE 2 TABLETS BY MOUTH AT BEDTIME NEEDED active Not Available Not Available No t Available dextroamphet amine-amphet amine 20 mg tablet TAKE 1 TABLET BY MOUTH TWICE DAILY active Not Available Not Available No t Available omeprazole 20 mg capsule,sheree yed release TAKE 1 CAPSULE BY MOUTH DAILY active Not Available Not Available Not Available lisinopril 5 mg tablet TAKE 1 TABLET BY MOUTH DAILY active Not Available Not Available Not Available labetalol 100 mg tablet TAKE 1 TABLET BY MOUTH TWICE DAILY active Not Available Not Available No t Available fluticasone propionate 50 mcg/actuatio n nasal spray,suspen nick SHAKE LIQUID AND USE 2 SPRAYS IN EACH NOSTRIL DAILY active Not Available Not Available No t Available Artificial Tears (polyvinyl alcohol) 1.4 % eye drops INSTILL 1 DROP IN BOTH EYES TWICE DAILY active Not Available Not Available Not Available cholecalcife rol (vitamin D3) 25 mcg (1,000 unit) capsule TAKE 1 CAPSULE BY MOUTH EVERY DAY active Not Available Not Available No t Available cyclosporine 0.05 % eye drops in a dropperette INSTILL 1 DROP IN BOTH EYES TWICE DAILY active Not Available Not Available Not Available buprenorphin e 8 mg-naloxone [address] AND DISSOLVE 3 FILMS UNDER THE TONGUE EVERY DAY active Not Available Not Available No t Available Allergy Relief (fexofenadin e) 180 mg tablet TAKE 1 TABLET BY MOUTH DAILY active Not Available Not Available Not Available Vitals Date Recorded Heart rate Body temperature Oxygen saturation Oxygen saturation in Arterial blood by Pulse oximetry Respiratory rate Body temperature Respiratory rate Oxygen saturation Oxygen saturation in Arterial blood by Pulse oximetry Heart rate Systolic blood pressure Diastolic blood pressure Systolic blood pressure Diastolic blood pressure Provider Name and Address Organization Details Last Updated DateTime 2 84 /min 97.7 [degF] 97 % 97 % 18 /min 97.7 [degF] 18 /min 97 % 97 % 84 /min 124 mm[Hg] 81 mm[Hg] 124 mm[Hg] 81 mm[Hg] Not Available [facility] - production 2 17:27:04 Social History None recorded. Functional Status None recorded. Mental Status None recorded. Family History Nothing Reported. Medical History No medical history recorded. Gynecological HistoryNo gynecological history recorded. Obstetrics History GPAL:G 0 P 0 0 0 0 Past Encounters Encounter ID Performer Location Encounter Start Date Encounter Closed Date Diagnosis/Indication Diagnosis SNOMED-CT Code Diagnosis ICD10 Code Diagnosis Note 1930 Safia Romero MD [facility] [address] [place] [address] 10/10/2021 17:08:17 01/13/2022 16:00:57 Acute low back pain [id number] M54.50 Pt endorsing back pain c/w MSK strain improving w/ home suboxone. Recommend adding APAP prn and PCP f/up if pain persists or red flag features develop. I have reviewed and agree with the assessment and plan as documented by the loading unit operator. I provided real time medical direction for this encounter and was immediatel y available to provide additional phone based assistance as needed. Essential hypertension [id number] I10 Con't labetalol 100 mg BID, would not uptitrate BP meds now for elevated BP iso pain. Health Concerns Section Related Observation LastModified by Organization Detai ls LastModified Time None Recorded Concern Status LastModified by Organization Details LastModified Time None Recorded Advance Directives Directive None Recorded Payers Encounter Date Sequence Insurance Name Policy Number Policy [employer] Covered Member ID [employer] Member ID Guarantor Name 10/10/2021 1 [facility] - DOS PRIOR TO 2022 - DUAL ELIGIBLE (MEDICARE REPLACEMENT/ADV ANTAGE - HMO) Marsha Brock [id number] Marsha Brock Notes Date Note Type Note Provider Name and Address Organization Details Recorded Time 10/10/2021 text/html HPI:CHW reports member has had consistently elevated BP this week, 187/80 during call. Requesting visit as she has been taking medication PRN. Reports fatigue and nausea. Hx obtained by me:Strained her back this week planting cucumbersSince then BP elevatedHome HTN reg labetalol 100 mg BID................. .................... .................... .................... .................... .................... .................... .... Video Journalist Note: Sent to evaluate pt with c/o htn, systolic in the 180's. Arrived on scene, pt is awake and alert, airway open and patent, breathing regular. Pt ambulating around residence carefully, reporting lower back pain x5 days. Pt states that she was bending over planting vegetables x5 days ago and began having lower back pain in the area of her diagnosed degenerative disc disease. Pt states that since pain began, she has been having higher than normal bp's, despite being complaint with her 100mg BID labetalol. Pt currently denying cp, andino, vision changes. Neuro intact. No urinary s/s. Pt states that approx 2-3 hours ago, she took her evening dose of labetalol early and since, bp has become normotensive. Current reading is 124/81. Pt denies taking any OTC pain medication at this time. Consulted [facility] who recommended that pt take her prescribed 650mg tylenol q 6 hours to see if she gets relief. Pt has appt with PCP later in October. Recommended to pt that she record her BP's BID and bring to PCP office to discuss if medication management needs to change. Advised pt to take htn meds as prescribed and not to take extra doses PRN. Went over red flags and pt had no further questions or concerns at this time. .................... .................... .................... .................... .................... .................... .................... . Disposition: Fulfilled Safia Romero MD [address] [facility],[address], [place], [address], [email or web address] 10/10/2021 21:42:41 OBGyn Episode No OBEpisode recorded.
== END 2024-05-17 14:41 | disposition home or self-care (01) ==
LOC: HO.MAMMO 14:40
PROVIDERS: PCP Internal Medicine; Visit Provider Internal Medicine
DX: M81.0 Age-related osteoporosis without current pathological fracture (principal); M85.80 Other specified disorders of bone density and structure, unspecified site
CPT/HCPCS: 77080

== ENCOUNTER → 2024-05-18 18:11 | Outpatient (BNV) | payer OTHER, SELFPAY | PROVIDERS: PCP Internal Medicine; Visit Provider Radiology Neuroradiology | DX: M48.062 Spinal stenosis, lumbar region with neurogenic claudication (principal); M46.96 Unspecified inflammatory spondylopathy, lumbar region | CPT/HCPCS: 72148 ==

== ENCOUNTER 2024-05-18 18:12 | Outpatient (REF) | payer OTHER, SELFPAY ==
--- NOTE | ~2024-05-18 | MR_ITS ---
CLINICAL HISTORY: M54.50 - Low back pain, unspecified DDD, spondylosis. Lots of left low back pain MR lumbar spine without gadolinium Comparison: X-rays of the lumbar spine from 01/12/2024. Findings: Normal heights of 5 lumbar vertebrae. No significant listhesis. Multilevel Modic type 1 endplate changes including L1-L2, L2-L3, and L4-L5. Otherwise, essentially normal marrow signal. Conus terminates at L1. Subcutaneous edema is present. No drainable paraspinal fluid collection. L1-L2: Disc extrusion, endplate hypertrophy, and bilateral facet arthropathy. Mild spinal canal stenosis with mild right lateral recess narrowing and minimal bilateral foraminal narrowing. L2-L3: Disc bulge and bilateral facet arthropathy with small right and moderate left facet effusions. L3-L4: Disc bulge, endplate hypertrophy, and bilateral facet arthropathy. No spinal canal stenosis. Minimal left foraminal narrowing. L4-L5: Disc extrusion, endplate hypertrophy, bilateral facet arthropathy. Moderate spinal canal stenosis with severe left lateral recess narrowing. Trace left foraminal narrowing. L5-S1: Annular fissure, endplate hypertrophy, and bilateral facet arthropathy. No spinal stenosis. IMPRESSION: 1. Multilevel degenerative disc changes, with moderate spinal canal stenosis and severe left lateral recess narrowing at L4-L5. 2. Multifocal facet arthropathy of the lumbar spine. This document has been electronically signed by: Franklin King MD on 05/18/2024 19:44:54
--- OUTSIDE RECORDS SUMMARY | 2024-05-18 18:16 | XMS_ITS | Data Portability ---
Author Organization [employer], [place] Address [address] [place] [address] Care Team Providers Care Nurse Examiner Name Role Phone [facility] Referring Provider Assessment No [...] Safia Romero MD Main - [facility] [address] [place] [address] 10/10/2021 17:08:17 01/13/2022 16:00:57 Acute low back pain [id number] M54.50 Pt endorsing back pain c/w MSK strain improving w/ home suboxone. Recommend adding APAP prn and PCP f/up if pain persists or red flag features develop. I have reviewed and agree with the assessment and plan as documented by the rim buster. I provided real time medical direction for this encounter and was immediatel y available to provide additional phone based assistance as needed. Essential hypertension [id number] I10 Con't labetalol 100 mg BID, would [...] [employer] Member ID Guarantor Name 10/10/2021 1 [facility] - DOS PRIOR TO 2022 - DUAL ELIGIBLE (MEDICARE REPLACEMENT/ADV ANTAGE - HMO) Marsha Brock [id number] Marsha Brock Notes Date Note Type Note [...] .................... .................... .................... .................... .................... .................... .... Electronic Equipment Repairmen Note: Sent to evaluate pt with c/o [...] OTC pain medication at this time. Consulted [facility] who recommended that pt take her prescribed [...] . Disposition: Fulfilled Safia Romero MD [address] [facility],[address], [place], [address], [employer] 10/10/2021 21:42:41 OBGyn Episode No OBEpisode recorded.
== END 2024-05-18 18:13 | disposition home or self-care (01) ==
LOC: HO.MRI 18:12
PROVIDERS: PCP Internal Medicine; Visit Provider Nurse Practitioner Family
DX: M54.50 Low back pain, unspecified (principal); M51.369 Other intervertebral disc degeneration, lumbar region without mention of lumbar back pain or lower extremity pain; M54.16 Radiculopathy, lumbar region; M47.817 Spondylosis without myelopathy or radiculopathy, lumbosacral region
CPT/HCPCS: 72148

== ENCOUNTER 2024-06-05 14:09 | Outpatient (AMB) | payer OTHER, SELFPAY ==
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
[2024-06-05 14:14] VITALS: BP 123/58; PULSE 86; RESP 16; O2SAT 96
--- OUTSIDE RECORDS SUMMARY | 2024-06-05 18:40 | XMS_ITS | Clinical Summary ---
Author Organization [facility] ity Address [address] [place] [address] Care Team Providers Care Director Medicaid Name Role Phone Unavailable Primary Care Provider Unavailabl e Social History Tobacco Use Types Packs/Day Years Used Date Smoking Tobacco: Never Assessed Sex and Gender Information Value Date Recorded Sex Assigned at Not on file Gender Identity Not on file Sexual Orientation Not on file Plan of Treatment Health Maintenance Due Date Last Done Comments Breast Cancer Screening 1960 DTaP,Tdap,and Td Vaccines (1 - Tdap) 02/07/1979 Cervical Cancer Screening: P ap Smear 02/07/1981 Zoster Vaccines (1 of 2) 02/07/2010 COVID-19 Vaccine ( - 2023-2 5 season) 2024 Influenza Vaccine (#1) 2024 RSV Immunization Patients 60 + Years Old (1 - 1-dose 75+ series) 02/07/2035 HIB Vaccines Aged Out No longer eligi ble based on patient's age to complete this topic HPV Vaccines Aged Out No longer eligi ble based on patient's age to complete this topic Hepatitis A Vaccines Aged Out No long er eligible based on patient's age to complete this topic Hepatitis B Vaccines Aged Out No long er eligible based on patient's age to complete this topic IPV Vaccines Aged Out No longer eligi ble based on patient's age to complete this topic MMR Vaccines Aged Out No longer eligi ble based on patient's age to complete this topic Meningococcal ACWY Vaccine Aged Out N o longer eligible based on patient's age to complete this topic Pneumococcal Vaccine: Pediat rics (0 to 5 Years) and At-Risk Patients (6 to 64 Years) Aged Out No longer eligible b ased on patient's age to complete this topic RSV Immunization Patients Un malinda 20 months Aged Out No longer eligible b ased on patient's age to complete this topic Varicella Vaccines Aged Out No longer eligible based on patient's age to complete this topic
--- OUTSIDE RECORDS SUMMARY | 2024-06-05 18:40 | XMS_ITS | Data Portability ---
Author Organization [employer] [facility] [employer] Address [address] [place] [address] Care Team Providers Care Steel Fixer Name Role Phone [facility] Referring Provider Assessment No [...] Safia Romero MD Main - instED [address] [place] [address] 10/10/2021 17:08:17 01/13/2022 16:00:57 Acute low back pain [id number] M54.50 Pt endorsing back pain c/w MSK strain improving w/ home suboxone. Recommend adding APAP prn and PCP f/up if pain persists or red flag features develop. I have reviewed and agree with the assessment and plan as documented by the hypoid gear tester. I provided real time medical direction for this encounter and was immediatel y available to provide additional phone based assistance as needed. Essential hypertension [id number] I10 Con't labetalol 100 mg BID, would [...] [employer] Member ID Guarantor Name 10/10/2021 1 [facility] - DOS PRIOR TO 2022 - DUAL ELIGIBLE (MEDICARE REPLACEMENT/ADV ANTAGE - HMO) Marsha Brock [id number] Marsha Brock Notes Date Note Type Note [...] .................... .................... .................... .................... .................... .................... .... Electrician Wiring Note: Sent to evaluate pt with c/o [...] OTC pain medication at this time. Consulted [facility] [place] who recommended that [...] . Disposition: Fulfilled Safia Romero MD [address] [facility],[address], [place], [address], [employer] 10/10/2021 21:42:41 OBGyn Episode No OBEpisode recorded.
== END 2024-06-05 14:49 | disposition home or self-care (01) ==
PROVIDERS: PCP Internal Medicine; Visit Provider Nurse Practitioner Family
DX: M47.817 Spondylosis without myelopathy or radiculopathy, lumbosacral region (principal); M54.16 Radiculopathy, lumbar region; M51.369 Other intervertebral disc degeneration, lumbar region without mention of lumbar back pain or lower extremity pain; M48.061 Spinal stenosis, lumbar region without neurogenic claudication; M81.0 Age-related osteoporosis without current pathological fracture; M54.50 Low back pain, unspecified; M53.3 Sacrococcygeal disorders, not elsewhere classified
CPT/HCPCS: 99214; G2211

== ENCOUNTER → 2024-06-05 14:09 | Outpatient (BNVA) | payer OTHER, SELFPAY | PROVIDERS: PCP Internal Medicine; Visit Provider Nurse Practitioner Family | DX: M16.0 Bilateral primary osteoarthritis of hip (principal); M47.27 Other spondylosis with radiculopathy, lumbosacral region; M51.369 Other intervertebral disc degeneration, lumbar region without mention of lumbar back pain or lower extremity pain; M48.061 Spinal stenosis, lumbar region without neurogenic claudication; M81.0 Age-related osteoporosis without current pathological fracture; M53.3 Sacrococcygeal disorders, not elsewhere classified | CPT/HCPCS: 99212 ==

== ENCOUNTER 2024-07-05 14:04 | Outpatient (AMB) | payer OTHER, SELFPAY ==
--- NOTE | 2024-07-05 14:17 | MHC.AM.SUB ---
Intake Visit Reasons: MAT Office Allergies penicillin G [PENICILLIN G] Allergy (Unknown, Verified 06/05/24 14:15) RASH HPI HPI MAT Office: Details: Patient presents for follow up Currently prescribed Suboxone 8mg TID Reporting she has been taking more suboxone than normal to address pain from her back Seen by Pain management in May--prescribed gabapentin, which she reports she has been nervous to take because she has been watching videos on you tube about gabapentin. Discussed potentially starting at one time daily instead of TID (how it is ordered), patient agreeable Has an appt at [facility] mid to late July PCP appt early July Review of Systems Const Reports as per HPI Physical Exam Const General: cooperative, healthy appearing and alert Orientation/consciousness: patient oriented x3 Neuro General: patient oriented x3 Psych Appearance: well kempt Speech and movement: Clear speech present Affect: normal affect Attitude: cooperative Thought process: Normal thought process present [facility] Medical History Pulmonary fibrosis Left ear pain Abnormal blood sugar Ear abrasion Cervical cancer screening Breast pain, right Breast mass, left Hemorrhoid Onychomycosis Osteoarthritis, hip, bilateral Vitamin D deficiency Anxiety and depression Hypercholesterolemia Opioid use disorder Abnormal EKG Nail fungus ADH disorder Pulmonary nodules/lesions, multiple COPD (chronic obstructive pulmonary disease) Surgical History H/O colonoscopy (~10/2018) History of vocal cord polypectomy Hx of removal of ovary History of section Family History Father Stroke Mother Hypertension Heart problem Stroke DDD (degenerative disc disease) Brother Heart attack Social History Housing: House Alcohol intake: current Patient Tobacco Use Status: Current everyday Tobacco user Tobacco use type: Cigarette Cigarettes Per Day: 8 e-Cigarette/Vaping Use: Never Used Second Hand Smoke Exposure: Yes service: No Current occupational status: disabled Cognitive needs: No Hearing needs: No Vision needs: Yes Assessment & Plan Assessment & Plan (1) Opioid use disorder, moderate, in sustained remission: Code(s): F11.21 - Opioid dependence, in remission Category: Medical Plan: continue suboxone at current dose --discussed splitting current dose (4mg q 4hrs) follow up 3 months Medications: Refilled buprenorphine-naloxone 8-2 mg (Suboxone) 1 film sublingual TID 90 ea 2RF 30 days
--- OUTSIDE RECORDS SUMMARY | 2024-07-05 17:20 | XMS_ITS | Clinical Summary ---
Author Organization [facility] ity Address [address] [place] [address] Care Team Providers Care Account Group Supervisor Name Role Phone Unavailable Primary Care Provider Unavailabl e Social History Tobacco Use Types Packs/Day Years Used Date Smoking Tobacco: Never Assessed Comments Unknown Sex and Gender Information Value Date Recorded Sex Assigned at Not on file Legal Sex Female 2:53 AM EST Gender Identity Not on file Sexual Orientation Not on file Plan of Treatment Health Maintenance Due Date Last Done Comments Breast Cancer Screening 1960 DTaP,Tdap,and Td Vaccines (1 - Tdap) 02/07/1979 Cervical Cancer Screening: P ap Smear 02/07/1981 Pneumococcal Vaccine: 50+ Ye ars (1 of 1 - PCV) 02/07/2010 Zoster Vaccines (1 of 2) 02/07/2010 COVID-19 [...] patient's age to complete this topic Meningococcal B Vacine Aged Out No lo nger eligible based on patient's age to complete [...]
--- OUTSIDE RECORDS SUMMARY | 2024-07-05 17:20 | XMS_ITS | Data Portability ---
Author Organization [employer] [place] [facility] Address [address] [place] [address] Care Team Providers Care Tool Dispatcher Name Role Phone [facility] Referring Provider Assessment No assessment [...] Safia Romero MD Main - [facility] [address] [place] [address] 10/10/2021 17:08:17 01/13/2022 16:00:57 Acute low back pain [id number] M54.50 Pt endorsing back pain c/w MSK strain improving w/ home suboxone. Recommend adding APAP prn and PCP f/up if pain persists or red flag features develop. I have reviewed and agree with the assessment and plan as documented by the art therapy certified supervisor. I provided real time medical direction for this encounter and was immediatel y available to provide additional phone based assistance as needed. Essential hypertension [id number] I10 Con't labetalol 100 mg BID, would [...] [employer] Member ID Guarantor Name 10/10/2021 1 [facility] - DOS PRIOR TO 2022 - DUAL ELIGIBLE (MEDICARE REPLACEMENT/ADV ANTAGE - HMO) Marsha Brock [id number] Marsha Brock Notes Date Note Type Note [...] .................... .................... .................... .................... .................... .................... .... Demurrage Agent Note: Sent to evaluate pt with c/o [...] OTC pain medication at this time. Consulted [facility] who recommended that pt take her prescribed [...] . Disposition: Fulfilled Safia Romero MD [address] [facility],[address], [place], [address], [employer] 10/10/2021 21:42:41 OBGyn Episode No OBEpisode recorded.
== END 2024-07-05 14:42 | disposition home or self-care (01) ==
PROVIDERS: PCP Internal Medicine; Visit Provider Nurse Practitioner Psychiatric/Mental Health
DX: F11.21 Opioid dependence, in remission (principal)
CPT/HCPCS: 99213

== ENCOUNTER → 2024-07-05 14:04 | Outpatient (BNVA) | payer OTHER, SELFPAY | PROVIDERS: PCP Internal Medicine; Visit Provider Nurse Practitioner Psychiatric/Mental Health | DX: F11.20 Opioid dependence, uncomplicated (principal) | CPT/HCPCS: 99212 ==

== ENCOUNTER 2024-07-14 14:18 | Outpatient (REF) | payer OTHER, SELFPAY ==
[2024-07-14 16:14] LABS: MANUAL DIFF FLAG NO
--- OUTSIDE RECORDS SUMMARY | 2024-07-14 17:18 | XMS_ITS | Clinical Summary ---
Author Organization [facility] ity Address [address] [place] [address] Care Team Providers Care Rheumatologist Name Role Phone Unavailable Primary Care Provider [...]
[2024-07-14 17:19] LABS: Estimated Average Glucose 117 mg/dL; Hemoglobin A1c % 5.7 % (<6.0); Total Hemoglobin (HGBA1C) 3199.6132 umol/L
[2024-07-14 17:43] LABS: Parathyroid Hormone Intact 173.9 pg/mL (8.7-77.1)
[2024-07-14 18:03] LABS: Basophils Absolute Auto 0.1 X10*3/uL (0.0-0.2); Basophils Percent Auto 0.9 % (0-2); Eosinophils Absolute Auto 0.2 X10*3/uL (0.0-0.4); Eosinophils Percent Auto 1.6 % (0-4); Hematocrit 37.4 % (37.0-47.0); Hemoglobin 12.1 g/dl (12.0-16.0); Imm Gran Abs Auto 0.03 X10*3/uL (0.00-0.03); Imm Gran Pct Auto 0.3 % (0.0-0.4); Lymphocytes Absolute Auto 2.8 X10*3/uL (1.2-4.9); Lymphocytes Percent Auto 27.9 % (20-40); Mean Corpuscular HGB Conc 32.4 g/dl (31.0-35.0); Mean Corpuscular Hemoglobin 29.9 pg (27.0-33.0); Mean Corpuscular Volume 92.3 fL (80.0-98.0); Mean Platelet Volume 9.3 fL (9.4-12.3); Monocytes Absolute Auto 0.7 X10*3/uL (0.1-1.2); Monocytes Percent Auto 7.4 % (2-11); Neutrophils Absolute Auto 6.2 x10*3/uL (2.0-8.3); Neutrophils Percent Auto 61.9 % (45-73); Platelet Count 306 X10*3/uL (160-400); Red Blood Count 4.05 X10*6/uL (4.20-5.50); Red Cell Distribution Width 13.1 % (11.0-16.0)
[2024-07-14 18:12] LABS: Folate 8.8 ng/mL (> or = 4.0); Vitamin B12 355 pg/mL (200-900)
[2024-07-14 22:33] LABS: Alanine Aminotransferase 18 U/L (0-31); Albumin Level 4.2 g/dL (3.5-5.0); Alkaline Phosphatase 85 U/L (39-117); Anion Gap 14 (12-20); Aspartate Amino Transferase 15 U/L (5-31); Bilirubin Total 0.2 mg/dL (0.0-1.0); Blood Urea Nitrogen 22 mg/dL (9-16); Calcium 9.9 mg/dL (8.4-10.2); Carbon Dioxide 25 mmol/L (22-29); Chloride 105 mmol/L (96-108); Estimated Glomerular Filt Rate 49; Glucose Random 79 mg/dL (60-115); Magnesium 1.9 mg/dL (1.6-2.6); Potassium 4.7 mmol/L (3.3-5.1); Sodium 139 mmol/L (135-145); Total Protein 7.5 g/dL (6.5-8.0)
[2024-07-14 22:48] LABS: Free T4 (Free Thyroxine) 1.11 ng/dL (0.71-1.85); TSH reflex Free T4 0.83 uIU/mL (0.32-4.0); Thyroid Stimulating Hormone 0.83 uIU/mL (0.32-4.0); Vitamin D 25-OH Total 35.6 ng/mL (>30)
[2024-07-17 14:18] LABS: Calcium, Ionized 5.3 mg/dL (4.7-5.5)
== END 2024-07-14 14:19 | disposition home or self-care (01) ==
LOC: HO.LAB 14:18
PROVIDERS: PCP Internal Medicine; Visit Provider Internal Medicine
DX: R73.01 Impaired fasting glucose (principal); E78.00 Pure hypercholesterolemia, unspecified; E83.52 Hypercalcemia; F41.1 Generalized anxiety disorder; I10 Essential (primary) hypertension; J44.9 Chronic obstructive pulmonary disease, unspecified; M48.061 Spinal stenosis, lumbar region without neurogenic claudication; M81.0 Age-related osteoporosis without current pathological fracture; F11.21 Opioid dependence, in remission; Z72.0 Tobacco use; Z00.00 Encounter for general adult medical examination without abnormal findings
CPT/HCPCS: 36415; 80053; 82306; 82330; 82607; 82746; 83036; 83735; 83970; 84439; 84443; 85025; 99212

== ENCOUNTER 2024-07-14 14:18 | Outpatient (AMB) | payer OTHER, SELFPAY ==
[2024-07-14 14:21] VITALS: BP 130/80; PULSE 92; RESP 16; TEMP 36.6; O2SAT 95; BMI 29.4
--- NOTE | 2024-07-14 14:21 | A.OFFPC_ITS ---
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 Required: No Accompanied by: Self / Same As Patient Allergies penicillin G [PENICILLIN G] Allergy (Unknown, Verified 07/14/24 14:21) RASH Medication List - Last Reconciled 07/14/24 by Blair Chris MD albuterol sulfate 90 mcg/actuation (ProAir HFA) 2 puffs inhalation Q4-6H PRN 30 days alprazolam 1 mg PO DAILY PRN atorvastatin 40 mg PO DAILY 90 days blood sugar diagnostic (FreeStyle Lite Strips) As directed check the BS QD blood-glucose meter (FreeStyle Lite Meter kit) As directed buprenorphine-naloxone 8-2 mg (Suboxone) 1 film sublingual TID 30 days cholecalciferol (vitamin D3) 25 mcg PO DAILY dextroamphetamine-amphetamine 20 mg (Adderall) 20 mg PO BID donepezil 5 mg PO DAILY fexofenadine (Vanessa Allergy) 180 mg PO DAILY fluticasone propionate 50 mcg/actuation (Flonase Allergy Relief) 2 sprays intranasal DAILY gabapentin 300 mg PO TID 30 days hydrocortisone 2.5% (Proctosol HC) 1 appl [place] BID-QID PRN hydroxyzine HCl 100 mg PO BEDTIME labetalol 100 mg PO BID 90 days lancets (FreeStyle Lancets) As directed check BS QD lisinopril 5 mg PO DAILY magnesium oxide 400 mg PO DAILY meloxicam 7.5 mg PO DAILY methocarbamol 500 mg PO TID montelukast (Singulair) 10 mg PO BEDTIME nicotine (polacrilex) 2 mg buccal Q2H omeprazole 20 mg PO DAILY 90 days terbinafine HCl 250 mg PO DAILY 12 weeks tizanidine 2 mg PO BEDTIME PRN trazodone 200 mg PO BEDTIME Tobacco use date assessed: 07/14/24 Fall risk assessment: No Falls in past year Last assessed Fall Risk: 07/14/24 Dental Screening Dental Screen Date: 12/20/23 HPI f/u back pain and HLD HPI Details blood work not done 64-year-old overweight female with multiple medical problems smoker with hypertension COPD hypercholesterolemia GERD osteoporosis impaired glucose tolerance hypercalcemia generalized anxiety disorder with ADHD having neck pain and low back pain. Patient is being followed up by pain management as well as by opioid or comprehensive care for the opioid intake. Patient has been placed on Suboxone. Recent cats or recent MRI of the lumbar spine showing severe lateral recess narrowing and has been referred to the neurosurgeon. Meanwhile patient also has some cervical spine disc degeneration and asking for muscle relaxant. Patient was given methocarbamol as well as tizanidine with no relief. Otherwise patient's blood work was requested but this has not been done. [facility] Medical History Pulmonary fibrosis Left ear pain Abnormal blood sugar Ear abrasion Cervical cancer screening Breast pain, right Breast mass, left Hemorrhoid Onychomycosis Osteoarthritis, hip, bilateral Vitamin D deficiency Anxiety and depression Hypercholesterolemia Opioid use disorder Abnormal EKG Nail fungus ADH disorder Pulmonary nodules/lesions, multiple COPD (chronic obstructive pulmonary disease) Surgical History H/O colonoscopy (~10/2018) History of vocal cord polypectomy Hx of removal of ovary History of section Family History Father Stroke Mother Hypertension Heart problem Stroke DDD (degenerative disc disease) Brother Heart attack Social History Housing: House Alcohol intake: current Patient Tobacco Use Status: Current everyday Tobacco user Tobacco use type: Cigarette Cigarettes Per Day: 10 e-Cigarette/Vaping Use: Never Used Second Hand Smoke Exposure: Yes service: No Current occupational status: disabled Cognitive needs: No Hearing needs: No Vision needs: Yes Questionnaire PHQ-9 Over the last 2 weeks, how often have you been bothered by any of the following problems? 1. Little interest or pleasure in doing things: several days 2. Feeling down, depressed, or hopeless: several days 3. Trouble falling or staying asleep, or sleeping too much: several days 4. Feeling tired or having little energy: several days 5. Poor appetite or overeating: several days 6. Feeling bad about yourself - or that you are a failure or have let yourself or your family down: several days 7. Trouble concentrating on things, such as reading the newspaper or watching television: not at all 8. Moving or speaking so slowly that other people could have noticed. Or the opposite - being so fidgety or restless that you have been moving around a lot more than usual: not at all 9. Thoughts that you would be better off or of hurting yourself in some way: not at all Total score: 6 Depression Screening Interpretation: Positive Depression Screening Follow-up: Existing condition and In treatment Depression Screening Done: Yes Source: Developed by Drs. Dean Real, Shireen Godfrey, Mj Zuñiga and colleagues, with an educational ramón from [employer]. Thrive Questionnaire Date Thrive assessed: 07/14/24 I am a: Patient What is your living situation today?: I have a steady place to live Within the past 12 months, did the food you bought not last and you didn't have the money to get more?: Never true Within the past 12 months, did you worry whether your food would run out before you got money to buy more?: Never true Do you have trouble paying for medicines?: No Do you have trouble getting transportation to medical appointments?: No Do you have trouble paying your heating and electricity bill?: No Do you have trouble taking care of your child, family member or friend?: No Do you have trouble with day-to-day activities such as bathing, preparing meals, shopping, managing finances, etc.?: No Are you currently unemployed and looking for a job?: No Are you interested in more education?: No Currently or been in a relationship where the following occur: No concerns reported THRIVE Score: 0 AUDIT C Alcohol Use Questionnaire (AUDIT-C) 1. How often do you have a drink containing alcohol?: Monthly or less 2. How many drinks containing alcohol do you have on a typical day when you are drinking?: 1 or 2 3. How often do you have six or more drinks on one occasion?: Never Total Score: 1 Score Reviewed/Action Taken: No ALBERTO-7 AMB Questionnaire ALBERTO-7 Date ALBERTO - 7 assessed: 07/14/24 Feeling nervous, anxious, or on edge: 1 = Several days Not being able to stop or control worryin = Several days Worrying too much about different things: 1 = Several days Trouble relaxin = Several days Being so restless that it is hard to sit still: 0 = Not at all Becoming easily annoyed or irritable: 0 = Not at all Feeling afraid as if something awful might happen: 1 = Several days Total ALBERTO-7 score (0-4 normal; 5-9 mild; 10-14 moderate; 15-21 severe): 5 Source: Developed by Drs. Dean Real, Shireen Godfrey, Mj Zuñiga and colleagues, with an educational ramón from [employer]. Physical exam (Primary Care) Vital Signs: Last Vital Signs Temp 97.8 F 07/14/24 14:21 Pulse 92 07/14/24 14:21 Resp 16 07/14/24 14:21 BP 130/80 07/14/24 14:21 Pulse Ox 95 07/14/24 14:21 Oxygen Delivery Method Room Air 07/14/24 14:21 BMI result Body Mass Index 29.4 Tobacco/Smoking Status: Tobacco use Status Tobacco use date assessed 07/14/24 07/14/24 14:22 Patient Tobacco Use Status Current everyday Tobacco 07/14/24 14:22 Tobacco use type Cigarette 07/14/24 14:22 e-Cigarette/Vaping Use Never Used 07/14/24 14:22 PHQ-9: PHQ-9 Score PHQ-9: Total score 6 07/14/24 14:53 Depression Screening Interpretation: Positive Depression Screening Follow-up: Existing condition and In treatment Thrive Assessment: Date of Thrive Assessment Date Thrive assessed 07/14/24 07/14/24 14:22 Currently or been in a relationship where the following occur: No concerns reported Const General: alert; No acute distress Eyes Conjunctivae: conjunctivae normal Resp Auscultation: clear to auscultation bilaterally Cardio Rate: regular rate Rhythm: regular rhythm GI Inspection: Yes normal to inspection Extrem General: Yes normal to inspection and No edema Results AMB Hemoglobin A1c AMB Hemoglobin A1c 6.1 % Last Edit by SOMMER Sparks on 07/14/24 14:40 Results Reviewed Results Reviewed: Laboratory Last Values Hgb A1c (Clinic) 6.1 % (4.0-6.0) H 07/14/24 14:37 Coding Level of Care Code Est Pt Level 4 (76966) Complex EM visit Add On G2211 Diagnoses Impaired fasting blood sugar R73.01 ALBERTO (generalized anxiety disorder) F41.1 Hypercholesterolemia E78.00 Tobacco abuse Z72.0 Hypertension I10 COPD (chronic obstructive pulmonary disease) J44.9 Lumbar spinal stenosis M48.061 Opioid use disorder, moderate, in sustained remission F11.21 Osteoporosis M81.0 Assessment & Plan Assessment & Plan (1) Impaired fasting blood sugar: Code(s): R73.01 - Impaired fasting glucose Category: Medical Plan: Meets plan discussed my concerns about the elevated blood sugar (2) ALBERTO (generalized anxiety disorder): Comment: Dr. Thurman Code(s): F41.1 - Generalized anxiety disorder Category: Medical Plan: Continue with present therapy (3) Hypercholesterolemia: Code(s): E78.00 - Pure hypercholesterolemia, unspecified Category: Medical Plan: Avoid fried foods, chicken skin, eggs, butter margarine, pastries and meat. Be it pork or beef they have a lot of cholesterol on atorvastatin 40 mg once a day (4) Tobacco abuse: Comment: SHE HAS LONGSTANDING HISTORY OF SMOKING. CLAIMS THAT SHE HAS CUT DOWN TO HALF PACK A DAY. SHE WAS SUPPOSED TO BE IN ANNUAL LUNG SCREENING PROGRAM BUT HAS NOT SHOWN UP FOR LAST [address] SCAN OF THE CHEST SHOWS, THAT SHE HAS MINIMAL BIBASILAR SUB PLEURAL RETICULATION. IS 1 CARINAL LYMPH NODE 1.6 CM IN SIZE. NO PULMONARY NODULES December [address] CT Code(s): Z72.0 - Tobacco use Category: Medical Plan: Patient is strongly advised to stop smoking (5) Hypertension: Code(s): I10 - Essential (primary) hypertension Category: Medical Plan: Continue with blood pressure medication. Decrease salt intake and exercise patient is on labetalol 100 mg twice a day lisinopril 5 mg once a day (6) COPD (chronic obstructive pulmonary disease): Comment: CINDY MAY HAVE CHRONIC OBSTRUCTIVE PULMONARY DISEASE, BUT MILD , AND DOES NOT REQUIRE ACTIVE TREATMENT. * SHE HAS NOT CONSENTED TO UNDERGO PULMONARY FUNCTION TEST. Code(s): J44.9 - Chronic obstructive pulmonary disease, unspecified Category: Medical Plan: Patient is strongly advised to stop smoking. Continue with the albuterol inhaler (7) Lumbar spinal stenosis: Code(s): M48.061 - Spinal stenosis, lumbar region without neurogenic claudication Category: Medical Plan: Patient is seeing pain management and will be referred to neurosurgeon. Muscle relaxants prescribed (8) Opioid use disorder, moderate, in sustained remission: Code(s): F11.21 - Opioid dependence, in remission Category: Medical Plan: Patient is under comprehensive care and on Suboxone (9) Osteoporosis: Comment: 05/17/2024 Code(s): M81.0 - Age-related osteoporosis without current pathological fracture Category: Medical Plan: Discussion about calcium and vitamin-D. Concern about osteoporosis and hypercalcemia PTH has been requested. As for treatment of osteoporosis discussed about alendronate treatment but will need to have dental evaluation 1st. Plan History of Present Illness The patient is a 64-year-old female presenting with multiple concerns related to osteoporosis and chronic musculoskeletal pain. She has been diagnosed with osteoporosis affecting her spinal column, confirmed by a T-score of -2.9, and osteopenia in the hip with a T-score of -2.3, causing significant confusion regarding her diagnosis and management implications. Her symptoms include chronic musculoskeletal pain that affects her spinal mobility and exacerbates daily functional activities. Current treatment regimens for pain, particularly prescribed muscle relaxants, have been reported as ineffective, prompting the patient to request alternate or stronger interventions for pain relief. Additionally, she has been advised to seek a dental evaluation and complete a blood test to assess parathyroid function as part of her workup for osteoporosis management. Health Maintenance - Assessment of bone health with DEXA scans, revealing osteoporosis of the spine and osteopenia of the hip. - Recommended blood work to investigate parathyroid function. - Advised dental clearance prior to initiation of specific osteoporosis medications. Social History - Reports living on disability and financial concerns, impacting her access to medications. - Notes challenges with memory and organizational skills, possibly affecting compliance with medication and medical appointments. Review of Systems - Musculoskeletal: Reports chronic pain affecting spine mobility and strength. - Neurological: Denies any new neurological symptoms but notes difficulties with memory. - Allergies: Reports unspecified allergies and a need for stronger allergy management solutions. Physical Exam Results - Labs: Pending blood work for parathyroid hormone levels. - Tests: DEXA scan shows T-score -2.9 for spine and -2.3 for hip. Plan Management will include a comprehensive review of musculoskeletal pain, emphasizing the need for stronger interventions beyond current ineffective muscle relaxants. The patient will follow up on blood work for parathyroid evaluation and arrange for a dental visit for clearance concerning osteoporosis treatment. Improving allergy control with potentially stronger medications warrants further investigation. Continued examination and diagnostic imaging, like an MRI, may further elucidate thoracic and cervical spine complications if warranted by symptom progression. Patient was informed and verbally consented to the use of an ambient scribe for clinic note documentation during this visit. Discussion Notes I discussed with the patient her current diagnoses of osteoporosis and osteopenia, clarifying the implications and severity of her conditions. The necessity of managing chronic musculoskeletal pain with possibly stronger interventions was addressed, including the current inefficacy of prescribed muscle relaxants. We reviewed the plan for parathyroid evaluation to rule out secondary causes of bone loss and the need for dental clearance before initiating new osteoporosis medication. Lastly, I discussed allergy management, recognizing the need for potential stronger therapies. Plans for continued investigation and possible MRI for spinal evaluation were also considered during our discussion. Patient Instructions - Complete prescribed blood test for parathyroid assessment. - Schedule and attend dental evaluation for medication clearance. - Take prescribed medication as directed. - Follow instructions on whether to adjust current muscle relaxant dosage as discussed. - Monitor symptoms and seek medical attention if they worsen. - Discuss further options for allergy management with your healthcare provider. Orders: Orders TSH reflex Free T4 Today Z00.00 - Encounter for general adult medical examination without abnormal findings Lipid Panel Today E78.00 - Pure hypercholesterolemia, unspecified Comprehensive Met. Panel Today R73.01 - Impaired fasting glucose Hemoglobin A1c Today R73.01 - Impaired fasting glucose Vitamin B12 and Folate Today R73.01 - Impaired fasting glucose Vitamin D 25-OH Total Today R73.01 - Impaired fasting glucose Thyroid Stimulating Hormone Today R73.01 - Impaired fasting glucose Calcium, Ionized Today R73.01 - Impaired fasting glucose AMB Hemoglobin A1c Today R73.01 - Impaired fasting glucose Complete Blood Count Auto Diff Today Z00.00 - Encounter for general adult medical examination without abnormal findings Parathyroid Hormone Intact Today E83.52 - Hypercalcemia Free T4 (Free Thyroxine) Today Z00.00 - Encounter for general adult medical examination without abnormal findings Calcium Today R73.01 - Impaired fasting glucose Magnesium Today R73.01 - Impaired fasting glucose Medications: New cyclobenzaprine 10 mg PO TID PRN 60 tabs 0RF muscle spasm M47.817 - Spondylosis without myelopathy or radiculopathy, lumbosacral region Discontinued tizanidine Discontinued Reason: Duplicate 2 mg PO BEDTIME PRN 30 caps 0RF muscle spasticity M62.838 - Other muscle spasm methocarbamol Discontinued Reason: Duplicate 500 mg PO TID 20 tabs 0RF
--- OUTSIDE RECORDS SUMMARY | 2024-07-14 16:00 | XMS_ITS | Clinical Summary ---
Author Organization [facility] ity Address [address] [place] [address] Care Team Providers Care Conservator Artifacts Name Role Phone Unavailable Primary Care Provider [...]
--- OUTSIDE RECORDS SUMMARY | 2024-07-14 16:00 | XMS_ITS | Data Portability ---
Author Organization [facility] [place] [facility] [place] Address [address] [place] [address] Care Team Providers Care Supervisor Pipeline Maintenance Name Role Phone [facility] Referring Provider [phone] Assessment No assessment recorded. Plan of Treatment [...] Safia Romero MD Main - [facility]ED [address] [place] [address] 10/10/2021 17:08:17 01/13/2022 16:00:57 Acute low back pain [id number] M54.50 Pt endorsing back pain c/w MSK strain improving w/ home suboxone. Recommend adding APAP prn and PCP f/up if pain persists or red flag features develop. I have reviewed and agree with the assessment and plan as documented by the anthropologist physical. I provided real time medical direction for this encounter and was immediatel y available to provide additional phone based assistance as needed. Essential hypertension [id number] I10 Con't labetalol 100 mg BID, would [...] Aguillon Member ID Guarantor Name 10/10/2021 1 [facility] - DOS PRIOR TO 2022 - DUAL ELIGIBLE (MEDICARE REPLACEMENT/ADV ANTAGE - HMO) Marsha Brock [id number] Marsha Brock Notes Date Note Type Note [...] .................... .................... .................... .................... .................... .................... .... Claims Processor Note: Sent to evaluate pt with c/o [...] OTC pain medication at this time. Consulted [facility] who recommended that pt [...] . Disposition: Fulfilled Safia Romero MD [address] [facility],[address], [place], [address], [facility] 10/10/2021 21:42:41 OBGyn Episode No OBEpisode recorded.
== END 2024-07-14 15:17 | disposition home or self-care (01) ==
PROVIDERS: PCP Internal Medicine; Visit Provider Internal Medicine
DX: R73.01 Impaired fasting glucose (principal); J44.9 Chronic obstructive pulmonary disease, unspecified; F11.21 Opioid dependence, in remission; F41.1 Generalized anxiety disorder; E78.00 Pure hypercholesterolemia, unspecified; Z72.0 Tobacco use; I10 Essential (primary) hypertension; M48.061 Spinal stenosis, lumbar region without neurogenic claudication; M81.0 Age-related osteoporosis without current pathological fracture

== ENCOUNTER 2024-09-27 14:00 | Outpatient (AMB) | payer OTHER, SELFPAY ==
--- OUTSIDE RECORDS SUMMARY | 2024-09-27 14:29 | XMS_ITS | Data Portability ---
Author Organization [facility] Address [address] [place] [address] Care Team Providers Care Selenium Plant Operator Name Role Phone [facility] Referring Provider Assessment [...] Safia Romero MD Main - [facility] [address] [place] [address] 10/10/2021 17:08:17 01/13/2022 16:00:57 Acute low back pain [id number] M54.50 Pt endorsing back pain c/w MSK strain improving w/ home suboxone. Recommend adding APAP prn and PCP f/up if pain persists or red flag features develop. I have reviewed and agree with the assessment and plan as documented by the transmission technician. I provided real time medical direction for this encounter and was immediatel y available to provide additional phone based assistance as needed. Essential hypertension [id number] I10 Con't labetalol 100 mg BID, would not uptitrate BP meds now for elevated BP iso pain. Health Concerns Section Related Observation LastModified by Organization Detai ls LastModified Time None Recorded Concern Status LastModified by Organization Details LastModified Time None Recorded Advance Directives Directive None Recorded Payers Insurance Date Sequence Insurance Name Policy Number Policy [employer] Covered Member ID Aguillon Member ID Guarantor Name 10/10/2021 1 [facility] - DOS PRIOR TO 2022 - DUAL ELIGIBLE (MEDICARE REPLACEMENT/ADV ANTAGE - HMO) Marsha Brock [id number] Marsha Brock Notes Date Note Type Note [...] .................... .................... .................... .................... .................... .................... .... Button Cutter Note: Sent to evaluate pt with c/o [...] OTC pain medication at this time. Consulted [facility] who recommended that pt take [...] . Disposition: Fulfilled Safia Romero MD [address] [facility],[address], [place], [address], [facility] 10/10/2021 21:42:41 OBGyn Episode No OBEpisode recorded.
--- OUTSIDE RECORDS SUMMARY | 2024-09-27 14:29 | XMS_ITS | Clinical Summary ---
Author Organization [facility] [address] ity Address [address] [place] [address] Care Team Providers Care Pack Train Driver Name Role Phone Unavailable Primary Care Provider [...] - 2023-2 5 season) 2024 Influenza Vaccine (Season Ended) 2025 RSV Immunization Adult Patie nts (1 - 1-dose 75+ series) 02/07/2035 HIB [...] age to complete this topic Meningococcal B Vaccine Aged Out No l onger eligible based on patient's age to complete [...]
--- NOTE | 2024-09-27 14:43 | A.OFFVIS_ITS ---
Intake Visit Reasons: MAT Office Allergies penicillin G [PENICILLIN G] Allergy (Unknown, Verified 09/27/24 14:43) RASH HPI HPI MAT Office: Details: She is doing well She takes MAT therapy. [facility] Medical History Pulmonary fibrosis Left ear pain Abnormal blood sugar Ear abrasion Cervical cancer screening Breast pain, right Breast mass, left Hemorrhoid Onychomycosis Osteoarthritis, hip, bilateral Vitamin D deficiency Anxiety and depression Hypercholesterolemia Opioid use disorder Abnormal EKG Nail fungus ADH disorder Pulmonary nodules/lesions, multiple COPD (chronic obstructive pulmonary disease) Surgical History H/O colonoscopy (~10/2018) History of vocal cord polypectomy Hx of removal of ovary History of section Family History Father Stroke Mother Hypertension Heart problem Stroke DDD (degenerative disc disease) Brother Heart attack Social History Housing: House Alcohol intake: current Patient Tobacco Use Status: Current everyday Tobacco user Tobacco use type: Cigarette Cigarettes Per Day: 10 e-Cigarette/Vaping Use: Never Used Second Hand Smoke Exposure: Yes service: No Current occupational status: disabled Cognitive needs: No Hearing needs: No Vision needs: Yes Review of Systems Const All systems reviewed & are unremarkable except as noted in HPI and below Assessment & Plan Assessment & Plan (1) Opioid use disorder, moderate, in sustained remission: Comment: She has been doing well Code(s): F11.21 - Opioid dependence, in remission Category: Medical Plan: Would continue MAT therapy. See as scheduled. Medications: New buprenorphine-naloxone 8-2 mg (Suboxone) place 1 film on inside of (each) cheek 1 film sublingual TID 90 ea 2RF 30 days Coding Level of Care Code Est Pt Level 3 (09520) Diagnoses Opioid use disorder, moderate, in sustained remission F11.21
== END 2024-09-27 14:59 | disposition home or self-care (01) ==
PROVIDERS: PCP Internal Medicine; Visit Provider Internal Medicine
DX: F11.21 Opioid dependence, in remission (principal)
CPT/HCPCS: 99213

== ENCOUNTER → 2024-09-27 14:00 | Outpatient (BNVA) | payer OTHER, SELFPAY | PROVIDERS: PCP Internal Medicine; Visit Provider Internal Medicine | DX: F11.21 Opioid dependence, in remission (principal) | CPT/HCPCS: 99212 ==

== ENCOUNTER 2024-10-17 15:28 | Outpatient (AMB) | payer OTHER, SELFPAY ==
[2024-10-17 15:32] VITALS: BP 150/88; PULSE 98; TEMP 36.2; O2SAT 94; BMI 30.8
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
--- OUTSIDE RECORDS SUMMARY | 2024-10-17 18:36 | XMS_ITS | Data Portability ---
Author Organization [email or web address], [facility] Address [address] [place] [address] Care Team Providers Care Blender Operator Name Role Phone [facility] Referring Provider [phone] Assessment No assessment recorded. Plan of Treatment [...] 1930 Safia Romero MD Main - [facility] [address] [place] [phone] 10/10/2021 17:08:17 01/13/2022 16:00:57 Acute low back pain [id number] M54.50 Pt endorsing back pain c/w MSK strain improving w/ home suboxone. Recommend adding APAP prn and PCP f/up if pain persists or red flag features develop. I have reviewed and agree with the assessment and plan as documented by the waffle machine operator. I provided real time medical direction for this encounter and was immediatel y available to provide additional phone based assistance as needed. Essential hypertension [id number] I10 Con't labetalol 100 mg BID, would [...] (MEDICARE REPLACEMENT/ADV ANTAGE - HMO) Marsha Brock [id number] Marsha Brock Notes Date Note Type Note [...] .................... .................... .................... .................... .................... .................... .... Head Porter Note: Sent to evaluate pt with c/o [...] OTC pain medication at this time. Consulted [facility] who recommended that pt take her prescribed [...] . Disposition: Fulfilled Safia Romero MD [address] [facility],[address], [place], [address], [email or web address] 10/10/2021 21:42:41 OBGyn Episode No OBEpisode recorded.
== END 2024-10-17 16:08 | disposition home or self-care (01) ==
LOC: HO.HMCH 15:29
PROVIDERS: PCP Internal Medicine; Visit Provider Internal Medicine
DX: I10 Essential (primary) hypertension (principal); J44.9 Chronic obstructive pulmonary disease, unspecified; F11.21 Opioid dependence, in remission; Z72.0 Tobacco use; E78.00 Pure hypercholesterolemia, unspecified; K21.9 Gastro-esophageal reflux disease without esophagitis; R73.01 Impaired fasting glucose; F41.1 Generalized anxiety disorder; M51.369 Other intervertebral disc degeneration, lumbar region without mention of lumbar back pain or lower extremity pain; Z12.11 Encounter for screening for malignant neoplasm of colon; M81.0 Age-related osteoporosis without current pathological fracture

== ENCOUNTER → 2024-10-17 15:28 | Outpatient (BNVA) | payer OTHER, SELFPAY | PROVIDERS: PCP Internal Medicine; Visit Provider Internal Medicine | DX: I10 Essential (primary) hypertension (principal); J44.9 Chronic obstructive pulmonary disease, unspecified; E78.00 Pure hypercholesterolemia, unspecified; K21.9 Gastro-esophageal reflux disease without esophagitis; R73.01 Impaired fasting glucose; F41.1 Generalized anxiety disorder; F11.21 Opioid dependence, in remission; M51.369 Other intervertebral disc degeneration, lumbar region without mention of lumbar back pain or lower extremity pain; M81.0 Age-related osteoporosis without current pathological fracture; F17.210 Nicotine dependence, cigarettes, uncomplicated | CPT/HCPCS: 96127; 99212 ==

== ENCOUNTER 2024-10-18 13:13 | Outpatient (REF) | payer OTHER, SELFPAY ==
[2024-10-18 14:31] LABS: Calcium 10.1 mg/dL (8.4-10.2); Cholesterol 211 mg/dL (<200); HDL Cholesterol 62 mg/dL (>40); LDL Cholesterol Calculated 132 mg/dL (<100); Triglycerides 87 mg/dL (<150)
== END 2024-10-18 13:14 | disposition home or self-care (01) ==
LOC: HO.LAB 13:13
PROVIDERS: PCP Internal Medicine; Visit Provider Internal Medicine
DX: R73.01 Impaired fasting glucose (principal); E78.00 Pure hypercholesterolemia, unspecified; R79.89 Other specified abnormal findings of blood chemistry; E83.52 Hypercalcemia; M81.0 Age-related osteoporosis without current pathological fracture
CPT/HCPCS: 36415; 80061; 82310; 99202

== ENCOUNTER 2024-10-18 13:53 | Outpatient (AMB) | payer OTHER, SELFPAY ==
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
[2024-10-18 13:57] VITALS: BP 142/78; PULSE 85; O2SAT 95; BMI 30.8
== END 2024-10-18 14:43 | disposition home or self-care (01) ==
LOC: HO.ENCR 13:54
PROVIDERS: PCP Internal Medicine; Visit Provider Student in an Organized Health Care Education/Training Program
DX: R79.89 Other specified abnormal findings of blood chemistry (principal); E83.52 Hypercalcemia; M81.0 Age-related osteoporosis without current pathological fracture
CPT/HCPCS: 99204

== ENCOUNTER 2024-12-21 13:04 | Outpatient (AMB) | payer OTHER, SELFPAY ==
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
[2024-12-21 13:11] VITALS: BP 147/81; PULSE 90; O2SAT 91; BMI 31.8
--- OUTSIDE RECORDS SUMMARY | 2024-12-21 13:56 | XMS_ITS | Clinical Summary ---
Author Organization [facility] ity Address [address] [place] [address] Care Team Providers Care Retail Account Specialist Name Role Phone Unavailable Primary Care Provider [...] Vaccine ( - 2023-2 5 season) 2024 Depression Screening 05/10/2024 Influenza Vaccine (#1) 2025 RSV Immunization Adult Patie nts (1 [...]
== END 2024-12-21 13:30 | disposition home or self-care (01) ==
LOC: HO.PMC 13:05
PROVIDERS: PCP Internal Medicine; Visit Provider Nurse Practitioner Family
DX: M54.12 Radiculopathy, cervical region (principal); M47.812 Spondylosis without myelopathy or radiculopathy, cervical region; M54.14 Radiculopathy, thoracic region; M54.50 Low back pain, unspecified; M51.369 Other intervertebral disc degeneration, lumbar region without mention of lumbar back pain or lower extremity pain; M47.817 Spondylosis without myelopathy or radiculopathy, lumbosacral region; M53.3 Sacrococcygeal disorders, not elsewhere classified; M48.061 Spinal stenosis, lumbar region without neurogenic claudication
CPT/HCPCS: 99214; G2211

== ENCOUNTER → 2024-12-21 13:04 | Outpatient (BNVA) | payer OTHER, SELFPAY | PROVIDERS: PCP Internal Medicine; Visit Provider Nurse Practitioner Family | DX: M54.12 Radiculopathy, cervical region (principal); M47.812 Spondylosis without myelopathy or radiculopathy, cervical region; M54.14 Radiculopathy, thoracic region; M54.50 Low back pain, unspecified; M51.369 Other intervertebral disc degeneration, lumbar region without mention of lumbar back pain or lower extremity pain; M47.817 Spondylosis without myelopathy or radiculopathy, lumbosacral region; M53.3 Sacrococcygeal disorders, not elsewhere classified; M48.061 Spinal stenosis, lumbar region without neurogenic claudication | CPT/HCPCS: 99212 ==

== ENCOUNTER 2024-12-27 14:33 | Outpatient (AMB) | payer OTHER, SELFPAY ==
[2024-12-27 14:41] VITALS: BP 138/86; PULSE 110; O2SAT 98; BMI 32.6
--- NOTE | 2024-12-27 14:41 | MHC.OFFVIS ---
Vital Signs 12/27/24 14:41 Height 4 ft 11.5 in Weight 164 lb BMI 32.6 BP 138/86 Pulse 110 H Pulse Oximetry (%) 98 Intake Visit Reasons: MAT Allergies penicillin G (PENICILLIN G) Allergy (Unknown, Verified 12/27/24 14:42) RASH Medication List - Last Reconciled 12/27/24 by RAFFI Orozco albuterol sulfate 90 mcg/actuation (ProAir HFA) 2 puffs inhalation Q4-6H PRN 30 days alendronate 70 mg PO QWEEK alprazolam 1 mg PO DAILY PRN atorvastatin 40 mg PO DAILY 90 days blood sugar diagnostic (FreeStyle Lite Strips) As directed check the BS QD blood-glucose meter (FreeStyle Lite Meter kit) As directed buprenorphine-naloxone 8-2 mg (Suboxone) 1 film sublingual TID 30 days cholecalciferol (vitamin D3) 25 mcg PO DAILY cyclobenzaprine 10 mg PO TID PRN dextroamphetamine-amphetamine 20 mg (Adderall) 20 mg PO BID donepezil 5 mg PO DAILY fexofenadine (Vanessa Allergy) 180 mg PO DAILY fluticasone propionate 50 mcg/actuation (Flonase Allergy Relief) 2 sprays intranasal DAILY gabapentin 300 mg PO TID 30 days guaifenesin ER (Mucinex) 600 mg PO Q12H PRN hydrocortisone 2.5% (Proctosol HC) 1 appl [place] BID-QID PRN hydroxyzine HCl 100 mg PO BEDTIME labetalol 100 mg PO BID 90 days lancets (FreeStyle Lancets) As directed check BS QD lisinopril 5 mg PO DAILY magnesium oxide 400 mg PO DAILY meloxicam 7.5 mg PO DAILY montelukast (Singulair) 10 mg PO BEDTIME nicotine 1 patch transdermal DAILY 7 days nicotine 1 patch transdermal DAILY 7 days nicotine 1 patch transdermal Q24H 28 days nicotine (polacrilex) 2 mg buccal Q2H omeprazole 20 mg PO DAILY 90 days [PULSE OXIMETER As directed] trazodone 200 mg PO BEDTIME HPI Comments Details: A 64-year-old female presents for follow-up r/t ALEKSANDRA in remission with buprenorphine-naloxone 8-2 mg TID. Denies use of opiates, and other substances does note intermittent use of alcohol and continues to smoke cigarettes and take THC gummies. Reports recently sustained a fall and is feeling discomfort in the coccyx, encouraged to follow-up with primary care provider for evaluation and treatment. [facility] Medical History (Updated 12/21/24 @ 13:28 by JUANIS Wilkins) Elevated parathyroid hormone Osteoporosis Pulmonary fibrosis Left ear pain Abnormal blood sugar Ear abrasion Cervical cancer screening Breast pain, right Breast mass, left Hemorrhoid Onychomycosis Osteoarthritis, hip, bilateral Vitamin D deficiency Anxiety and depression Hypercholesterolemia Opioid use disorder Abnormal EKG Nail fungus ADH disorder Pulmonary nodules/lesions, multiple COPD (chronic obstructive pulmonary disease) Surgical History H/O colonoscopy (~10/2018) History of vocal cord polypectomy Hx of removal of ovary History of section Family History Father Stroke Mother Hypertension Heart problem Stroke DDD (degenerative disc disease) Brother Heart attack Social History Housing: House Alcohol intake: current Patient Tobacco Use Status: Current everyday Tobacco user Tobacco use type: Cigarette Cigarettes Per Day: 10 e-Cigarette/Vaping Use: Never Used Second Hand Smoke Exposure: Yes service: No Current occupational status: disabled Cognitive needs: No Hearing needs: No Vision needs: Yes Review of Systems Const All systems reviewed & are unremarkable except as noted in HPI and below Physical Exam Vital Signs: Last Vital Signs Pulse 110 H 12/27/24 14:41 BP 138/86 12/27/24 14:41 Pulse Ox 98 12/27/24 14:41 BMI result Body Mass Index 32.6 Assessment & Plan Assessment & Plan (1) Opioid use disorder, moderate, in sustained remission: Comment: She has been doing well Code(s): F11.21 - Opioid dependence, in remission Category: Medical Plan The plan of care is to continue with buprenorphine-naloxone 8-2 mg TID, utilized risk reduction activities to minimize alcohol and cigarette smoking. Follow-up in 3 months. Medications: Refilled buprenorphine-naloxone 8-2 mg (Suboxone) place 1 film on inside of (each) cheek 1 film sublingual TID 90 ea 2RF 30 days Patient Instructions: - Continue with buprenorphine-naloxone as prescribed. - Engage in risk reduction activities minimize alcohol and cigarette smoking. - Follow-up in 3 months or sooner if needed. - Call with questions, concerns, or to report side effects/new onset of symptoms to [facility]. - The patient verbalized understanding and agreed with plan of care. Coding Level of Care Code Est Pt Level 3 (93232) Diagnoses Opioid use disorder, moderate, in sustained remission F11.21
--- OUTSIDE RECORDS SUMMARY | 2024-12-27 15:30 | XMS_ITS | Clinical Summary ---
Author Organization [facility] ity Address [address] [place] [address] Care Team Providers Care Hairpiece Stylist Name Role Phone Unavailable Primary Care Provider [...]
== END 2024-12-27 15:09 | disposition home or self-care (01) ==
LOC: HO.HCC 14:33
PROVIDERS: PCP Internal Medicine; Visit Provider Clinical Nurse Specialist Psychiatric/Mental Health
DX: F11.21 Opioid dependence, in remission (principal)
CPT/HCPCS: 99213

== ENCOUNTER → 2024-12-27 14:33 | Outpatient (BNVA) | payer OTHER, SELFPAY | PROVIDERS: PCP Internal Medicine; Visit Provider Clinical Nurse Specialist Psychiatric/Mental Health | DX: F11.21 Opioid dependence, in remission (principal) | CPT/HCPCS: 99212 ==

== ENCOUNTER 2025-01-10 15:16 | Outpatient (AMB) | payer OTHER, SELFPAY ==
[2025-01-10 15:22] VITALS: BP 130/72; PULSE 96; O2SAT 94; BMI 32.0
--- NOTE | 2025-01-10 15:22 | A.OFFVIS_ITS ---
Vital Signs 01/10/25 15:22 Height 4 ft 11.5 in Weight 160 lb 14.999 oz BMI 32.0 BP 130/72 Blood Pressure Location Lt brachial Position Sitting Pulse 96 Pulse Source Pulse Oximeter Pulse Oximetry (%) 94 Oxygen Delivery Method Room Air Intake Visit Reasons: COPD Intake Note: pt is here for follow up and states she is feeling okay with her breathing. can she have a refill on nicotine patch 21mg. 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 Allergies penicillin G (PENICILLIN G) Allergy (Unknown, Verified 01/10/25 15:49) RASH Medication List - Last Reconciled 01/10/25 by Jennie Esparza MD albuterol sulfate 90 mcg/actuation (ProAir HFA) 2 puffs inhalation Q4-6H PRN 30 days alendronate 70 mg PO QWEEK alprazolam 1 mg PO DAILY PRN atorvastatin 40 mg PO DAILY 90 days blood sugar diagnostic (FreeStyle Lite Strips) As directed check the BS QD blood-glucose meter (FreeStyle Lite Meter kit) As directed buprenorphine-naloxone 8-2 mg (Suboxone) 1 film sublingual TID 30 days cholecalciferol (vitamin D3) 25 mcg PO DAILY cyclobenzaprine 10 mg PO TID PRN dextroamphetamine-amphetamine 20 mg (Adderall) 20 mg PO BID donepezil 5 mg PO DAILY fexofenadine (Vanessa Allergy) 180 mg PO DAILY fluticasone propionate 50 mcg/actuation (Flonase Allergy Relief) 2 sprays intranasal DAILY gabapentin 300 mg PO TID 30 days guaifenesin ER (Mucinex) 600 mg PO Q12H PRN hydrocortisone 2.5% (Proctosol HC) 1 appl NC BID-QID PRN hydroxyzine HCl 100 mg PO BEDTIME labetalol 100 mg PO BID 90 days lancets (FreeStyle Lancets) As directed check BS QD lisinopril 5 mg PO DAILY magnesium oxide 400 mg PO DAILY meloxicam 7.5 mg PO DAILY montelukast (Singulair) 10 mg PO BEDTIME nicotine 1 patch transdermal DAILY 7 days nicotine 1 patch transdermal DAILY 7 days nicotine 1 patch transdermal Q24H 28 days nicotine (polacrilex) 2 mg buccal Q2H omeprazole 20 mg PO DAILY 90 days [PULSE OXIMETER As directed] trazodone 200 mg PO BEDTIME Do you need a note to return to daycare/school/sports/work: No HPI HPI COPD: Details: THIS 64 YEARS OLD FEMALE, IS A LONG STANDING SMOKER , HAS NOW CUT DOWN TO 10 CIGARETTES, DENIES ANY WHEEZING ATTACKS BUT DOES HAVE MILD INTERMITTENT COUGH. WAS TREATED AT [facility] AT THE END OF OCTOBER OF THIS YEAR FOR ACUTE EXACERBATION OF COPD. SHE SAY IS SHE DID NOT HAVE CT SCAN OF THE CHEST OVER THE. SHE IS HERE FOR FOLLOW-UP AFTER A RATHER LONG TIME. SHE HAS RESIDUAL COUGH AND SOME INTERMITTENT WHEEZING. SHE IS OUT OF INHALERS AND WANTS THE ALBUTEROL INHALER TO USE P.R.N.. SHE ALSO CONTINUES TO SMOKE, THOUGH SHE HAS CUT DOWN TO 10 CIGARETTES A DAY. SHE IS VERY ANXIOUS, AND WORRIED ABOUT PULMONARY NODULES, AND WOULD LIKE TO HAVE CT SCAN FOR LUNG SCREENING. [facility] Medical History Elevated parathyroid hormone Osteoporosis Pulmonary fibrosis Left ear pain Abnormal blood sugar Ear abrasion Cervical cancer screening Breast pain, right Breast mass, left Hemorrhoid Onychomycosis Osteoarthritis, hip, bilateral Vitamin D deficiency Anxiety and depression Hypercholesterolemia Opioid use disorder Abnormal EKG Nail fungus ADH disorder Pulmonary nodules/lesions, multiple COPD (chronic obstructive pulmonary disease) Surgical History H/O colonoscopy (~10/2018) History of vocal cord polypectomy Hx of removal of ovary History of section Family History Father Stroke Mother Hypertension Heart problem Stroke DDD (degenerative disc disease) Brother Heart attack Social History Housing: House Alcohol intake: current Patient Tobacco Use Status: Current everyday Tobacco user Tobacco use type: Cigarette Cigarettes Per Day: 10 e-Cigarette/Vaping Use: Never Used Second Hand Smoke Exposure: Yes service: No Current occupational status: disabled Cognitive needs: No Hearing needs: No Vision needs: Yes Review of Systems Const Denies body aches, Denies chills, Denies fatigue, Denies fever(s) and Denies headache(s) Eyes Denies blurry vision, Denies irritation, Denies itchy eyes and Denies loss of vision ENT Denies dysphagia, Denies vertigo, Denies headache(s), Denies epistaxis, Denies nasal congestion, Denies nasal discharge, Denies nasal obstruction and Denies sinus pain Card Denies chest pain, Denies rapid heart rate, Denies irregular heart rhythm, Reports dyspnea on exertion and Denies slow heart rate Resp Reports as per HPI and Reports dyspnea on exertion GI Reports bloating, Denies change in bowel habits, Denies change in stool character, Denies dysphagia, Denies heartburn, Denies nausea and Denies vomiting Denies difficulty voiding and Denies urinary incontinence Musc Denies abnormal gait, Denies back pain, Denies myalgias, Denies arthralgias, Denies muscle weakness and Denies stiffness Neuro Denies abnormal gait, Denies vertigo, Denies headache(s), Denies focal weakness, Denies loss of vision, Denies memory loss, Denies restless legs and Denies tremor(s) Psych Reports anxiety, Denies depression, Denies difficulty concentrating, Denies irritability, Denies memory loss and Denies mood swings Endo Reports no additional complaints and Denies fatigue Cullen/Lymph Reports no additional complaints Aller/Immun Reports no additional complaints and Denies itchy eyes Physical Exam Vital Signs: Last Vital Signs Pulse 96 01/10/25 15:22 BP 130/72 01/10/25 15:22 Pulse Ox 94 01/10/25 15:22 Oxygen Delivery Method Room Air 01/10/25 15:22 BMI result Body Mass Index 32.0 Const General: comfortable, no acute distress, alert and awake Orientation/consciousness: patient oriented x3 HEENT Head: Yes normal to inspection General nose exam: No nasal polyps present and No nasal discharge present Face and sinus: Yes sinuses nontender Mouth: oropharynx normal Throat: Yes posterior oropharynx normal Eyes General: appearance normal, both eyes and all related structures Neck Neck: Yes normal visual inspection, Yes no lymphadenopathy, Yes trachea midline and Yes no JVD Thyroid: Thyroid normal Chest Chest palpation & inspection: normal inspection of the chest, normal palpation of entire chest wall and no tenderness Resp Other: Percussion note hyper-resonant, breath sounds are distant with prolonged expiratory phase, no audible wheezes or crepitations. Cardio Palpation: normal PMI Rate: regular rate Rhythm: regular rhythm Heart sounds: no gallops and no murmurs Peripheral pulses: Peripheral pulses 2+ throughout GI Palpation (GI): Soft to palpation, nontender, No hepatosplenomegaly present and no masses Auscultation: normal bowel sounds Back/Spine/Pelvis Thoracic/Lumbar Spine: thoracic and lumbar spine normal to inspection Skin General skin exam: no rashes or lesions noted Neuro General: patient oriented x3 and no focal motor deficits Cranial nerves: Yes CN's II-XII intact bilaterally Extrem General: Yes normal to inspection, No no clubbing, cyanosis or edema (SHE DOES HAVE MILD CLUBBING OF THE FINGERNAILS.), Yes no calf tenderness and No venous stasis dermatitis Psych Appearance: grossly normal and other (Just a little anxious) Speech and movement: Normal speech and movement present Assessment & Plan Assessment & Plan (1) COPD (chronic obstructive pulmonary disease): Comment: CINDY MAY HAVE CHRONIC OBSTRUCTIVE PULMONARY DISEASE, BUT MILD , AND DOES NOT REQUIRE ACTIVE TREATMENT. * SHE HAS NOT CONSENTED TO UNDERGO PULMONARY FUNCTION TEST. Code(s): J44.9 - Chronic obstructive pulmonary disease, unspecified Category: Medical Plan: Advise that she should keep albuterol HFA inhaler on hand and use 1 or 2 puffs Q 6 hours only p.r.n.. (2) Pulmonary fibrosis: Comment: SHE IS MINIMAL RADIOLOGIC FINDINGS IN THE BASILAR AREAS INDICATING MINIMAL DEGREE OF FIBROSIS MAINLY IN THE FORM OF SUB PLEURAL HONEYCOMBING IT IS BASICALLY ASYMPTOMATIC EXCEPT FOR MILD INTERMITTENT COUGH. Code(s): J84.10 - Pulmonary fibrosis, unspecified Category: Medical Plan: PATIENT ADVISED ABOUT THESE FINDINGS. THE BEST TREATMENT IS TO QUIT SMOKING COMPLETELY. (3) Pulmonary nodules/lesions, multiple: Comment: LAST CT SCAN IN 2019 HAD SHOWN MULTIPLE NODULES, BUT SMALL IN SIZE. PATIENT NEEDS FOLLOW-UP . Code(s): R91.8 - Other nonspecific abnormal finding of lung field Category: Medical Plan: PATIENT WILL BE REGISTERED BACK IN THE ANNUAL LUNG SCREENING PROGRAM (4) Tobacco abuse: Comment: SHE HAS LONGSTANDING HISTORY OF SMOKING. CLAIMS THAT SHE HAS CUT DOWN TO HALF PACK A DAY. SHE WAS SUPPOSED TO BE IN ANNUAL LUNG SCREENING PROGRAM BUT HAS NOT SHOWN UP FOR LAST [address] SCAN OF THE CHEST SHOWED , THAT SHE HAS MINIMAL BIBASILAR SUB PLEURAL RETICULATION, AND A TINY NODULES. 1 CARINAL LYMPH NODE 1.6 CM IN SIZE. Code(s): Z72.0 - Tobacco use Category: Medical Plan: PATIENT IS REFERRED TO JOIN THE LUNG SCREENING PROGRAM AND SHE IS AGREEABLE. Orders: Referrals Lung Cancer Screening Referral J44.9 - Chronic obstructive pulmonary disease, unspecified, R91.8 - Other nonspecific abnormal finding of lung field, Z72.0 - Tobacco use Medications: New nicotine 1 patch transdermal ONCE 28 patches 2RF QUIT SMOKING 28 days Refilled albuterol sulfate 90 mcg/actuation (ProAir HFA) 2 puffs inhalation Q4-6H PRN 8.5 grams 3RF shortness of breath or wheezing 30 days Coding Level of Care Code Est Pt Level 3 (81416) Diagnoses COPD (chronic obstructive pulmonary disease) J44.9 Pulmonary fibrosis J84.10 Pulmonary nodules/lesions, multiple R91.8 Tobacco abuse Z72.0
--- OUTSIDE RECORDS SUMMARY | 2025-01-10 17:22 | XMS_ITS | Clinical Summary ---
Author Organization [facility] ity Address [address] [place] [address] Care Team Providers Care [employer] Professional Name Role Phone Unavailable Primary Care Provider [...] 02/07/2010 Zoster Vaccines (1 of 2) 02/07/2010 Depression Screening 05/10/2024 COVID-19 Vaccine (1 - 2023-2 5 season) 2025 Influenza Vaccine (#1) 2025 RSV Immunization Adult [...]
== END 2025-01-10 15:46 | disposition home or self-care (01) ==
LOC: HO.HPS 15:17
PROVIDERS: PCP Internal Medicine; Visit Provider Internal Medicine
DX: J44.9 Chronic obstructive pulmonary disease, unspecified (principal); J84.10 Pulmonary fibrosis, unspecified; R91.8 Other nonspecific abnormal finding of lung field; Z72.0 Tobacco use
CPT/HCPCS: 99213

== ENCOUNTER → 2025-01-10 15:16 | Outpatient (BNVA) | payer OTHER, SELFPAY | PROVIDERS: PCP Internal Medicine; Visit Provider Internal Medicine | DX: J44.9 Chronic obstructive pulmonary disease, unspecified (principal); J84.10 Pulmonary fibrosis, unspecified; R91.8 Other nonspecific abnormal finding of lung field | CPT/HCPCS: 99212 ==

== ENCOUNTER 2025-02-01 15:23 | Outpatient (REF) | payer OTHER, SELFPAY ==
--- NOTE | ~2025-02-01 | US_ITS ---
EXAMINATION: US KIDNEY BILATERAL HISTORY: M81.0 - Age-related osteoporosis without current pathological fracture. Hypercalcemia. TECHNIQUE: Real-time grayscale ultrasound imaging of the kidneys was performed and images were reviewed. COMPARISON: Correlation is made with an abdominal ultrasound dated 10/05/2018. FINDINGS: Right kidney: The right kidney measures 9.0 x 5.4 x 4.8 cm. Renal parenchymal echotexture and thickness are normal. There are no masses. There is no hydronephrosis or renal calculi. Left Kidney: The left kidney measures 7.3 x 3.3 x 4.1 cm. Renal parenchymal echotexture and thickness are normal. There are no masses. There is no hydronephrosis or renal calculi. US/US renal BI IMPRESSION: Unremarkable renal ultrasound. Electronically signed by: Dean Vasquez MD 02/01/2025 03:51 PM EDT
== END 2025-02-01 15:24 | disposition home or self-care (01) ==
LOC: HO.HMGCX 15:23
PROVIDERS: PCP Internal Medicine; Visit Provider Student in an Organized Health Care Education/Training Program
DX: E83.52 Hypercalcemia (principal); R79.89 Other specified abnormal findings of blood chemistry; M81.0 Age-related osteoporosis without current pathological fracture
CPT/HCPCS: 76775

== ENCOUNTER → 2025-02-01 15:28 | Outpatient (BNV) | payer OTHER, SELFPAY | PROVIDERS: PCP Internal Medicine; Visit Provider Radiology Diagnostic Radiology | DX: M81.0 Age-related osteoporosis without current pathological fracture (principal) | CPT/HCPCS: 76775 ==

== ENCOUNTER 2025-02-08 08:27 | Outpatient (REF) | payer OTHER, SELFPAY ==
--- NOTE | ~2025-02-08 | FL_ITS ---
EXAMINATION: XR FLUOROSCOPY WITH IMAGES CLINICAL INFORMATION: Lumbar spine pain management procedure. COMPARISON: None available. TECHNIQUE: Fluoroscopy provided to: Dr. Escamilla Fluoroscopy time: 0.1 minutes DAP: 0.0148 mGycm2 Images: 2 FINDINGS: 2 fluoroscopic spot images obtained during lumbar pain management procedure. Please refer to the full operative report for details. FL/FL guidance in treatment room IMPRESSION: Fluoroscopic guidance. Electronically signed by: Tom Shin MD 02/08/2025 02:24 PM EDT
--- OUTSIDE RECORDS SUMMARY | 2025-02-08 08:45 | XMS_ITS | Clinical Summary ---
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
== END 2025-02-08 08:28 | disposition home or self-care (01) ==
LOC: CF 08:27
PROVIDERS: Visit Provider Internal Medicine
DX: M47.817 Spondylosis without myelopathy or radiculopathy, lumbosacral region (principal)
CPT/HCPCS: 64493; 64494; J2003; J2795; Q9967

== ENCOUNTER 2025-02-08 13:15 | Outpatient (AMB) | payer OTHER, SELFPAY ==
[2025-02-08 13:20] VITALS: BP 138/78; PULSE 108; RESP 16; O2SAT 98; BMI 31.8
--- NOTE | 2025-02-08 13:20 | MHC.OFFVIS ---
Vital Signs 02/08/25 13:20 02/08/25 13:40 Height 4 ft 11.5 in Weight 160 lb BMI 31.8 BP 138/78 158/80 H Blood Pressure Location Lt brachial Lt brachial Position Sitting Sitting Respiration 16 16 Pulse 108 H 101 H Pulse Source Pulse Oximeter Pulse Oximeter Pulse Oximetry (%) 98 96 Oxygen Delivery Method Room Air Room Air Intake Visit Reasons: Gregory Dx L3-L4-DR-L5 MBB Allergies penicillin G (PENICILLIN G) Allergy (Unknown, Verified 01/10/25 15:49) RASH HPI HPI Gregory Dx L3-L4-DR-L5 MBB: Details: Patient presents for scheduled procedure. Denies any recent cough, cold, infection, fever or other significant changes in medical history since last office visit. [facility] Medical History Elevated parathyroid hormone Osteoporosis Pulmonary fibrosis Left ear pain Abnormal blood sugar Ear abrasion Cervical cancer screening Breast pain, right Breast mass, left Hemorrhoid Onychomycosis Osteoarthritis, hip, bilateral Vitamin D deficiency Anxiety and depression Hypercholesterolemia Opioid use disorder Abnormal EKG Nail fungus ADH disorder Pulmonary nodules/lesions, multiple COPD (chronic obstructive pulmonary disease) Surgical History H/O colonoscopy (~10/2018) History of vocal cord polypectomy Hx of removal of ovary History of section Family History Father Stroke Mother Hypertension Heart problem Stroke DDD (degenerative disc disease) Brother Heart attack Social History Housing: House Alcohol intake: current Patient Tobacco Use Status: Current everyday Tobacco user Tobacco use type: Cigarette Cigarettes Per Day: 10 e-Cigarette/Vaping Use: Never Used Second Hand Smoke Exposure: Yes service: No Current occupational status: disabled Cognitive needs: No Hearing needs: No Vision needs: Yes Physical Exam Vital Signs: Last Vital Signs Pulse 101 H 02/08/25 13:40 Resp 16 02/08/25 13:40 BP 158/80 H 02/08/25 13:40 Pulse Ox 96 02/08/25 13:40 Oxygen Delivery Method Room Air 02/08/25 13:40 BMI result Body Mass Index 31.8 Office Procedures Details: Lumbar Medial Branch Block, bilateral L3, L4 medial branches and L5 Dorsal Ramus (2 levels, 3 nerves) After obtaining written consent, pre-procedure blood pressure and pulse were recorded and are in the nursing record for review. The patient was placed in a prone position. The respective lumbosacral area was prepped with chloraprep and draped in sterile fashion. The skin over the target medial branch nerves was anesthetized with 0.5% lidocaine. A 22 gauge 3.5 inch needle was inserted into the target medial branch nerve under fluoroscopic guidance. No paresthesias were elicited with needle placement and aspiration was negative for blood and CSF. Next, 0.2cc of omnipaque 180 was injected to verify positioning in AP and oblique imaging. Next 0.5 ml 0.5% ropivicaine was injected (0.5cc total per level). The identical procedure was performed at the remaining levels. The skin was cleansed and a sterile bandage was applied. Following the procedure the patient's vital signs were stable. The patient tolerated the procedure well and no complications were encountered. Following the procedure the patient's vital signs were stable. The patient was discharged home in good condition with post-procedural instructions. Time Out: Immediately prior to the procedure, the following was verbally confirmed that there is a signed consent form and that the correct patient, planned procedure, site and side are consistent with documentation and that necessary equipment and/or blood products are available prior to the start of the case. Complications: none EBL: <5 cc 51556 - with Fluoroscopy (L3-L4) 66031 - second level with Fluoroscopy (L3-L4-L5) Procedure code (CPT) selection complete Assessment & Plan Assessment & Plan (1) Lumbosacral spondylosis: Code(s): M47.817 - Spondylosis without myelopathy or radiculopathy, lumbosacral region Category: Medical Plan Patient is status post diagnostic bilateral L3, L4 medial branches and L5 dorsal ramus diagnostic blocks. Patient tolerated procedure well and was discharged home in stable condition with discharge instructions. All questions were answered. We will follow-up via telephone or in clinic to assess response to therapy. A follow-up appointment was made during today's visit. Orders: Orders AMB Medial Branch Block - Lumbar/Sacral Today Arsalan Escamilla MD M47.816 - Spondylosis without myelopathy or radiculopathy, lumbar region FL guidance in treatment room Today Latasha Rinaldi APRN, [employer] M47.817 - Spondylosis without myelopathy or radiculopathy, lumbosacral region Coding Level of Care Code Procedure Only Diagnoses Lumbosacral spondylosis M47.817 CPT Codes Medial Branch Block Lumbar/Sacral1 - Branch Block Lumb/Sac 1: 10879 - with Fluoroscopy (L3-L4) ([id number]) Medial Branch Block Lumbar/Sacral1 - Branch Block Lumb/Sac 2: 00178 - second level with Fluoroscopy (L3-L4-L5) ([id number])
[2025-02-08 13:40] VITALS: BP 158/80; PULSE 101; RESP 16; O2SAT 96
== END 2025-02-08 13:40 | disposition home or self-care (01) ==
LOC: HO.PMCPRC 13:15
PROVIDERS: PCP Internal Medicine; Visit Provider Internal Medicine
DX: M47.817 Spondylosis without myelopathy or radiculopathy, lumbosacral region (principal)
CPT/HCPCS: 64493; 64494

== ENCOUNTER 2025-02-15 | Outpatient (REF) | payer OTHER, SELFPAY ==
--- OUTSIDE RECORDS SUMMARY | 2025-04-03 10:53 | XMS_ITS | Clinical Summary ---
Author Organization 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
== END 2025-02-15 00:01 | disposition home or self-care (01) ==
LOC: CF
PROVIDERS: PCP Internal Medicine; Visit Provider Internal Medicine
DX: F11.21 Opioid dependence, in remission (principal); I10 Essential (primary) hypertension; E78.00 Pure hypercholesterolemia, unspecified; E22.2 Syndrome of inappropriate secretion of antidiuretic hormone; N63.20 Unspecified lump in the left breast, unspecified quadrant; N63.10 Unspecified lump in the right breast, unspecified quadrant; J44.9 Chronic obstructive pulmonary disease, unspecified
CPT/HCPCS: 99212

== ENCOUNTER 2025-02-15 15:08 | Outpatient (AMB) | payer OTHER, SELFPAY ==
[2025-02-15 15:20] VITALS: BP 142/86; PULSE 95; O2SAT 90; BMI 32.2
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
== END 2025-02-15 16:01 | disposition home or self-care (01) ==
LOC: HO.HMCH 15:09
PROVIDERS: PCP Internal Medicine; Visit Provider Internal Medicine
DX: I10 Essential (primary) hypertension (principal); F11.21 Opioid dependence, in remission; J44.9 Chronic obstructive pulmonary disease, unspecified; E78.00 Pure hypercholesterolemia, unspecified; E22.2 Syndrome of inappropriate secretion of antidiuretic hormone; N63.20 Unspecified lump in the left breast, unspecified quadrant; N63.10 Unspecified lump in the right breast, unspecified quadrant

== ENCOUNTER 2025-02-20 14:40 | Outpatient (AMB) | payer OTHER, SELFPAY ==
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
[2025-02-20 14:45] VITALS: BP 130/78; PULSE 72; O2SAT 96; BMI 32.2
--- OUTSIDE RECORDS SUMMARY | 2025-02-20 17:34 | XMS_ITS | Clinical Summary ---
Author Organization [facility] ity Address [address] [place] [address] Care Team Providers Care [employer] Name Role Phone Unavailable Primary Care Provider [...]
== END 2025-02-20 14:51 | disposition home or self-care (01) ==
LOC: HO.PMC 14:41
PROVIDERS: PCP Internal Medicine; Visit Provider Nurse Practitioner Family
DX: M54.50 Low back pain, unspecified (principal); M51.369 Other intervertebral disc degeneration, lumbar region without mention of lumbar back pain or lower extremity pain; M47.817 Spondylosis without myelopathy or radiculopathy, lumbosacral region; M53.3 Sacrococcygeal disorders, not elsewhere classified
CPT/HCPCS: 99214; G2211

== ENCOUNTER → 2025-02-20 14:40 | Outpatient (BNVA) | payer OTHER, SELFPAY | PROVIDERS: PCP Internal Medicine; Visit Provider Nurse Practitioner Family | DX: M47.817 Spondylosis without myelopathy or radiculopathy, lumbosacral region (principal); M51.369 Other intervertebral disc degeneration, lumbar region without mention of lumbar back pain or lower extremity pain; M54.50 Low back pain, unspecified; M53.3 Sacrococcygeal disorders, not elsewhere classified | CPT/HCPCS: 99212 ==

== ENCOUNTER → 2025-02-21 13:01 | Outpatient (BNV) | payer OTHER, SELFPAY | PROVIDERS: PCP Internal Medicine; Visit Provider Radiology Diagnostic Radiology | DX: M54.12 Radiculopathy, cervical region (principal); M47.812 Spondylosis without myelopathy or radiculopathy, cervical region; M48.02 Spinal stenosis, cervical region; M54.14 Radiculopathy, thoracic region; M47.814 Spondylosis without myelopathy or radiculopathy, thoracic region | CPT/HCPCS: 72141; 72146 ==

== ENCOUNTER 2025-02-21 13:06 | Outpatient (REF) | payer OTHER, SELFPAY ==
--- NOTE | ~2025-02-21 | MR_ITS ---
EXAMINATION: MR THORACIC SPINE WITHOUT CONTRAST CLINICAL INFORMATION: M 54.14. Radiculopathy, thoracic region. COMPARISON: None available. TECHNIQUE: MRI of the thoracic spine was obtained using routine sequences without contrast. FINDINGS: Mild focal hyperintense STIR bone marrow signal in the anterior inferior endplate of T7 and anterior superior endplate of T8 with asymmetric joint space narrowing. Multilevel small marginal osteophyte formation T6-T10. There is normal alignment. The thoracic spinal cord signal is normal. The conus medullaris ends at pedicle of L1 with normal signal. Small right subarticular disc protrusion, T3-4 without cord compression. Small left subarticular disc protrusion T7-8 without cord compression. Broad-based disc bulging, T8-9 without cord compression. Broad-based disc bulging, T11-12 and T12-L1 without cord compression. No prevertebral compartment hematoma, mass or fluid collection. Descending thoracic aorta diameter is 2.7 cm. Small appearance of the upper pole left kidney. MR/MR thoracic spine wo con IMPRESSION: Multilevel spondylosis pronounced at T7-8 without cord compression, cord edema and or myelopathy. Electronically signed by: Jose Alfredo Mcgowan MD 02/21/2025 02:20 PM EDT
--- NOTE | ~2025-02-21 | MR_ITS ---
EXAMINATION: MR CERVICAL SPINE WITHOUT CONTRAST CLINICAL INFORMATION: M 54.12. Radiculopathy, cervical region. COMPARISON: Correlated to x-ray dated January 12, 2024. TECHNIQUE: MRI of the cervical spine was obtained using routine sequences without contrast. FINDINGS: Transrectal is intact. Normal position of the cerebellar tonsils. No bone marrow STIR signal abnormality. Mild multilevel disc desiccation and small marginal osteophyte formation, C6-7 and to a lesser extent C4-5 and C5-6 level. There is normal alignment. The cervical spinal cord signal is normal. C2-3: No disc herniation. No neuroforamina stenosis. C3-4: Central disc osteophyte formation. No central spinal canal or neuroforamina stenosis. C4-5: Right sided disc osteophyte compresses formation resulting in ventral deformity of the thecal sac. Right neuroforamina narrowing on a degenerative basis. C5-6: Broad-based disc osteophyte consummation. No cord compression. No neuroforamina stenosis. C6-7: Broad-based disc osteophyte consummation abutting the spinal cord. No neuroforamina stenosis. C7-T1: No disc herniation. No neuroforamina stenosis. No prevertebral compartment hematoma, mass or fluid collection. Flow-void signal within the main vessels is normal. Codominant vertebral arteries. MR/MR cervical spine wo con IMPRESSION: Multilevel cervical spondylosis, C6-7 and to a lesser extent C4-5 and C5-6 without cord compression, cord edema and or myelopathy. Mild neuroforamina narrowing, C4-5 on a degenerative basis. Electronically signed by: Jose Alfredo Mcgowan MD 02/21/2025 02:13 PM EDT
--- OUTSIDE RECORDS SUMMARY | 2025-02-21 16:50 | XMS_ITS | Data Portability ---
Author Organization [facility], Me [employer] Medical [facility] Address [address] [place] [address] Care Team Providers Care Meter Reading Clerk Name Role Phone [facility] Referring Provider [phone] Assessment No assessment recorded. Plan of Treatment [...] blood by Pulse oximetry Heart rate Systolic And Diastolic Systolic And Diastolic Provider Name and Address Organization Details Last Updated DateTime 2 84 /min 97.7 [degF] 97 % 97 % 18 /min 97.7 [degF] 18 /min 97 % 97 % 84 /min 124/81 mm[Hg] 124/81 mm[Hg] Not Available [employer] - production 2 17:27:04 Social History None recorded. Functional Status None recorded. Mental Status None recorded. Family History Nothing Reported. Medical History No medical history recorded. Gynecological HistoryNo gynecological history recorded. Obstetrics History GPAL:G 0 P 0 0 0 0 Past Encounters Encounter ID Performer Location Encounter Start Date Encounter Closed Date Diagnosis/Indication Diagnosis SNOMED-CT Code Diagnosis ICD10 Code Diagnosis IMO Codes Diagnosis Note 1930 Safia Romero MD Main - [facility] [address] [place] [phone] 10/10/2021 17:08:17 01/13/2022 16:00:57 Acute low back pain [id number] M54.50 Pt endorsing back pain c/w MSK strain improving w/ home suboxone. Recommend adding APAP prn and PCP f/up if pain persists or red flag features develop. I have reviewed and agree with the assessment and plan as documented by the alarm mechanism adjuster. I provided real time medical direction for this encounter and was immediatel y available to provide additional phone based assistance as needed. Essential hypertension [id number] I10 Con't labetalol 100 mg BID, would [...] Aguillon Member ID Guarantor Name 10/10/2021 1 [facility] - DOS PRIOR TO 2022 - DUAL ELIGIBLE (MEDICARE REPLACEMENT/ADV ANTAGE - HMO) Marsha Brock [id number] Marsha Brock Notes Date Note Type Note [...] .................... .................... .................... .................... .................... .................... .... Machine Repairer Maintenance Note: Sent to evaluate pt with c/o [...] OTC pain medication at this time. [place] [facility] [place] [...] . Disposition: Fulfilled Safia Romero MD [address] [facility],[address], [place], [address], [place] 10/10/2021 21:42:41 OBGyn Episode No OBEpisode recorded.
== END 2025-02-21 13:07 | disposition home or self-care (01) ==
LOC: HO.MRI 13:06
PROVIDERS: PCP Internal Medicine; Visit Provider Nurse Practitioner Family
DX: M54.12 Radiculopathy, cervical region (principal); M47.812 Spondylosis without myelopathy or radiculopathy, cervical region; M54.14 Radiculopathy, thoracic region
CPT/HCPCS: 72141; 72146

== ENCOUNTER 2025-03-07 15:31 | Outpatient (REF) | payer OTHER, SELFPAY ==
[2025-03-07 16:36] LABS: Parathyroid Hormone Intact 175.6 pg/mL (8.7-77.1)
[2025-03-07 16:39] LABS: Alanine Aminotransferase 25 U/L (0-31); Albumin Level 4.3 g/dL (3.5-5.0); Alkaline Phosphatase 91 U/L (39-117); Anion Gap 10 (12-20); Aspartate Amino Transferase 26 U/L (5-31); Blood Urea Nitrogen 22 mg/dL (9-16); Calcium 10.0 mg/dL (8.4-10.2); Carbon Dioxide 27 mmol/L (22-29); Chloride 107 mmol/L (96-108); Estimated Glomerular Filt Rate 56; Magnesium 2.2 mg/dL (1.6-2.6); Potassium 5.0 mmol/L (3.3-5.1); Sodium 139 mmol/L (135-145); Total Protein 7.2 g/dL (6.5-8.0)
[2025-03-07 17:57] LABS: Creatinine, mg/dL 43.11; Sodium, 24 Hr Urine 35.0 mmol/L; Total Volume 24 Hour Urine 1200 mL
[2025-03-07 18:02] LABS: Creatinine, mg/dL 43.11
--- OUTSIDE RECORDS SUMMARY | 2025-03-07 19:51 | XMS_ITS | Clinical Summary ---
Author Organization [facility] ity Address [address] [place] [address] Care Team Providers Care Training Consultant Name Role Phone Unavailable Primary Care Provider [...]
--- OUTSIDE RECORDS SUMMARY | 2025-03-07 19:51 | XMS_ITS | Data Portability ---
Author Organization [email or web address] [facility], [place] [email or web address] Medical [facility] Address [address] [place] [address] Care Team Providers Care Technical Internship Name Role Phone [facility] Referring Provider Assessment [...] /min 124/81 mm[Hg] 124/81 mm[Hg] Not Available [employer] - production 2 17:27:04 Social History None [...] 1930 Safia Romero MD Main - [facility] [address] [place] [phone] 10/10/2021 17:08:17 01/13/2022 16:00:57 Acute low back pain [id number] M54.50 Pt endorsing back pain c/w MSK strain improving w/ home suboxone. Recommend adding APAP prn and PCP f/up if pain persists or red flag features develop. I have reviewed and agree with the assessment and plan as documented by the cloth shrinking machine operator helper. I provided real time medical direction for this encounter and was immediatel y available to provide additional phone based assistance as needed. Essential hypertension [id number] I10 Con't labetalol 100 mg BID, would [...] (MEDICARE REPLACEMENT/ADV ANTAGE - HMO) Marsha Brock [id number] Marsha Brock Notes Date Note Type Note [...] .................... .................... .................... .................... .................... .................... .... Washtub Worker Helper Note: Sent to evaluate pt with c/o [...] OTC pain medication at this time. Consulted [facility] [place] who recommended that pt [...] . Disposition: Fulfilled Safia Romero MD [address] [facility],[address], [place], [address], edjing 10/10/2021 21:42:41 OBGyn Episode No OBEpisode recorded.
[2025-03-08 21:08] LABS: Calcium, Ionized 5.4 mg/dL (4.7-5.5)
[2025-03-09 17:18] LABS: Calcium/Creatinine Ratio 100 mg/g creat (30-275); Creatinine 24Hr Urine 0.55 g/24 h (0.50-2.15)
== END 2025-03-07 15:32 | disposition home or self-care (01) ==
LOC: HO.LAB 15:31
PROVIDERS: Visit Provider Student in an Organized Health Care Education/Training Program
DX: M81.0 Age-related osteoporosis without current pathological fracture (principal); E21.0 Primary hyperparathyroidism; R79.89 Other specified abnormal findings of blood chemistry
CPT/HCPCS: 36415; 80053; 82306; 82330; 82340; 82570; 83735; 83970; 84100; 84300

== ENCOUNTER 2025-03-13 13:23 | Outpatient (AMB) | payer OTHER, SELFPAY ==
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
[2025-03-13 13:32] VITALS: BP 86/52; PULSE 77; BMI 32.8
--- OUTSIDE RECORDS SUMMARY | 2025-03-13 16:21 | XMS_ITS | Data Portability ---
Author Organization [facility], [place] in[employer] Medical [facility] Address [address] [place] [address] Care Team Providers Care Nature Photographer Name Role Phone [facility] Referring Provider Assessment No [...] /min 124/81 mm[Hg] 124/81 mm[Hg] Not Available [facility] - production 2 17:27:04 Social History None [...] 1930 Safia Romero MD Main - [facility] [address] [place] [phone] 10/10/2021 17:08:17 01/13/2022 16:00:57 Acute low back pain [id number] M54.50 Pt endorsing back pain c/w MSK strain improving w/ home suboxone. Recommend adding APAP prn and PCP f/up if pain persists or red flag features develop. I have reviewed and agree with the assessment and plan as documented by the lift operator. I provided real time medical direction for this encounter and was immediatel y available to provide additional phone based assistance as needed. Essential hypertension [id number] I10 Con't labetalol 100 mg BID, would [...] [employer] Member ID Guarantor Name 10/10/2021 1 [facility] - DOS PRIOR TO 2022 - DUAL ELIGIBLE (MEDICARE REPLACEMENT/ADV ANTAGE - HMO) Marsha Brock [id number] Marsha Brock Notes Date Note Type Note [...] .................... .................... .................... .................... .................... .................... .... Steel Layer Note: Sent to evaluate pt with c/o [...] OTC pain medication at this time. Consulted [facility] [place] who recommended that pt take her prescribed [...] . Disposition: Fulfilled Safia Romero MD [address] [facility],[address], [place], [address], [employer] 10/10/2021 21:42:41 OBGyn Episode No OBEpisode recorded.
== END 2025-03-13 14:07 | disposition home or self-care (01) ==
LOC: HO.ENCR 13:24
PROVIDERS: PCP Internal Medicine; Visit Provider Student in an Organized Health Care Education/Training Program
DX: R79.89 Other specified abnormal findings of blood chemistry (principal); M81.0 Age-related osteoporosis without current pathological fracture
CPT/HCPCS: 99214

== ENCOUNTER → 2025-03-13 13:23 | Outpatient (BNVA) | payer OTHER, SELFPAY | PROVIDERS: PCP Internal Medicine; Visit Provider Student in an Organized Health Care Education/Training Program | DX: R79.89 Other specified abnormal findings of blood chemistry (principal); M81.0 Age-related osteoporosis without current pathological fracture | CPT/HCPCS: 99212 ==

== ENCOUNTER 2025-03-29 13:33 | Outpatient (AMB) | payer OTHER, SELFPAY ==
--- NOTE | 2025-03-29 13:41 | A.OFFVIS_ITS ---
Vital Signs 03/29/25 13:42 BP 139/80 Pulse 100 Pulse Oximetry (%) 93 Intake Visit Reasons: MAT Allergies penicillin G (PENICILLIN G) Allergy (Unknown, Verified 03/29/25 13:42) RASH Medication List - Last Reconciled 03/29/25 by LINDA OrozcoC albuterol sulfate 90 mcg/actuation (ProAir HFA) 2 puffs inhalation Q4-6H PRN 30 days alendronate 70 mg PO QWEEK alprazolam 1 mg PO DAILY PRN atorvastatin 40 mg PO DAILY 90 days blood sugar diagnostic (FreeStyle Lite Strips) As directed check the BS QD blood-glucose meter (FreeStyle Lite Meter kit) As directed buprenorphine-naloxone 8-2 mg (Suboxone) 1 film sublingual TID 30 days calcium citrate 500 mg (2 x 250 mg calcium) PO DAILY cholecalciferol (vitamin D3) 25 mcg PO DAILY cyclobenzaprine 10 mg PO TID PRN dextroamphetamine-amphetamine 20 mg (Adderall) 20 mg PO BID donepezil 5 mg PO DAILY fexofenadine (Vanessa Allergy) 180 mg PO DAILY fluticasone propionate 50 mcg/actuation (Flonase Allergy Relief) 2 sprays intranasal DAILY gabapentin 300 mg PO TID 30 days guaifenesin ER (Mucinex) 600 mg PO Q12H PRN hydrocortisone 2.5% (Proctosol HC) 1 appl UT BID-QID PRN hydroxyzine HCl 100 mg PO BEDTIME labetalol 100 mg PO BID 90 days lancets (FreeStyle Lancets) As directed check BS QD lisinopril 5 mg PO DAILY magnesium oxide 400 mg PO DAILY meloxicam 7.5 mg PO DAILY montelukast (Singulair) 10 mg PO BEDTIME nicotine 1 patch transdermal ONCE 28 days nicotine 1 patch transdermal DAILY 28 days MDD NICOTINE DEPENDANCE nicotine 1 patch transdermal DAILY 7 days nicotine 1 patch transdermal Q24H 28 days nicotine (polacrilex) 2 mg buccal Q2H omeprazole 20 mg PO DAILY 90 days [PULSE OXIMETER As directed] trazodone 200 mg PO BEDTIME HPI Comments Details: A 65 year old female presents for follow up visit r/t ALEKSANDRA in sustained remission with buprenorphine-naloxone 8-2 mg TID. Denies use of opiates, alcohol, and other substances. Acknowledges continuing to smoke cigarettes and is actively working towards decreasing quantity and frequency with the assistance nicotine patches. Engages in conversation re: turning 65 yeas old and coping with the insurance change from Medicaid to Medicare which has been stressful. [facility] Medical History Nicotine dependence, cigarettes, uncomplicated Breast mass, left Elevated parathyroid hormone Osteoporosis Pulmonary fibrosis Left ear pain Abnormal blood sugar Ear abrasion Cervical cancer screening Breast pain, right Hemorrhoid Onychomycosis Osteoarthritis, hip, bilateral Vitamin D deficiency Anxiety and depression Hypercholesterolemia Opioid use disorder Abnormal EKG Nail fungus ADH disorder Pulmonary nodules/lesions, multiple COPD (chronic obstructive pulmonary disease) Surgical History H/O colonoscopy (~10/2018) History of vocal cord polypectomy Hx of removal of ovary History of section Family History Father Stroke Mother Hypertension Heart problem Stroke DDD (degenerative disc disease) Brother Heart attack Social History Housing: House Alcohol intake: current Patient Tobacco Use Status: Current everyday Tobacco user Tobacco use type: Cigarette Cigarettes Per Day: 10 e-Cigarette/Vaping Use: Never Used Second Hand Smoke Exposure: Yes service: No Current occupational status: disabled Cognitive needs: No Hearing needs: No Vision needs: Yes Review of Systems Const All systems reviewed & are unremarkable except as noted in HPI and below Physical Exam Vital Signs: Last Vital Signs Pulse 100 03/29/25 13:42 BP 139/80 03/29/25 13:42 Pulse Ox 93 03/29/25 13:42 Const General: cooperative Assessment & Plan Assessment & Plan (1) Opioid use disorder, moderate, in sustained remission: Comment: She has been doing well Code(s): F11.21 - Opioid dependence, in remission Category: Medical Plan The plan of care is to continue with buprenorphine-naloxone 8-2 mg TID. Follow- up in 3 months or sooner if needed. Medications: Changed From buprenorphine-naloxone 8-2 mg (Suboxone) place 1 film on inside of (each) cheek 1 film sublingual TID 30 days 90 ea 2RF To buprenorphine-naloxone 8-2 mg (Suboxone) One film sublingually 3 times per day 1 film sublingual TID 7 days 21 ea 0RF From buprenorphine-naloxone 8-2 mg (Suboxone) One film sublingually 3 times per day 1 film sublingual TID 7 days 21 ea 0RF To buprenorphine-naloxone 8-2 mg (Suboxone) One film sublingually 3 times per day 1 film sublingual TID 90 ea 2RF 30 days Patient Instructions: - Continue with buprenorphine-naloxone prescribed. - Follow-up in 3 months or sooner if needed. - Call with questions, concerns, or to report side effects/new onset of symptoms to [facility] - The patient verbalized understanding and agreed with plan of care. Coding Level of Care Code Est Pt Level 3 (56097) Diagnoses Opioid use disorder, moderate, in sustained remission F11.21
[2025-03-29 13:42] VITALS: BP 139/80; PULSE 100; O2SAT 93
--- OUTSIDE RECORDS SUMMARY | 2025-03-29 19:00 | XMS_ITS | Data Portability ---
Author Organization [employer] [facility] [place] [employer] 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 Role Phone [facility] PRIMARY [facility]ARE Referring Provider Assessment [...] Recorded Heart rate Body temperature Oxygen saturation Respiratory rate Body temperature Respiratory rate Oxygen saturation Heart rate Systolic And Diastolic Systolic And Diastolic Provider Name and Address Organization Details Last Updated DateTime 2 84 /min 97.7 [degF] 97 % 18 /min 97.7 [degF] 18 /min 97 % 84 /min 124/81 mm[Hg] 124/81 mm[Hg] Not Available [employer] - production 2 [...] Safia Romero MD Main - [facility] [address] [place] [address] 10/10/2021 17:08:17 01/13/2022 16:00:57 Acute low back pain [id number] M54.50 Pt endorsing back pain c/w MSK strain improving w/ home suboxone. Recommend adding APAP prn and PCP f/up if pain persists or red flag features develop. I have reviewed and agree with the assessment and plan as documented by the afternoon babysitter. I provided real time medical direction for this encounter and was immediatel y available to provide additional phone based assistance as needed. Essential hypertension [id number] I10 Con't labetalol 100 mg BID, would [...] Member ID [place] Member ID Guarantor Name 03/28/2025 1 [email or web address] - DOS PRIOR TO 2022 - DUAL ELIGIBLE (MEDICARE REPLACEMENT/AD VANTAGE - HMO) Marsha Delmy [id number] Marsha Brock 03/28/2025 1 [facility] [email or web address] - DOS ON OR AFTER 2022 - DUAL ELIGIBLE - JAIL OPTIONS AND ONE CARE (MEDICARE REPLACEMENT/AD VANTAGE - HMO) Marsha Brock [id number] Marsha Brock Notes Date Note Type Note Provider Name and Address Organization Details Recorded Time 10/10/2021 text/html HPI:CHW reports member has had consistently elevated BP this week, 187/80 during call. Requesting visit as she has been taking medication PRN. Reports fatigue and nausea. Hx obtained by me:Strained her back this week planting cucCHOBOLABSe then BP elevatedHome HTN reg labetalol 100 mg BID................. .................... .................... .................... .................... .................... .................... .... 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 Consulted [facility] [place] who recommended that pt [...] . Disposition: Fulfilled Safia Romero MD [address] [facility],[address], [place], [address], [employer] - Seldom Seen Adventures 10/10/2021 21:42:41 OBGyn Episode No OBEpisode recorded.
== END 2025-03-29 14:01 | disposition home or self-care (01) ==
LOC: HO.HCC 13:33
PROVIDERS: PCP Internal Medicine; Visit Provider Clinical Nurse Specialist Psychiatric/Mental Health
DX: F11.21 Opioid dependence, in remission (principal)
CPT/HCPCS: 99213

== ENCOUNTER → 2025-03-29 13:33 | Outpatient (BNVA) | payer OTHER, SELFPAY | PROVIDERS: PCP Internal Medicine; Visit Provider Clinical Nurse Specialist Psychiatric/Mental Health | DX: F11.21 Opioid dependence, in remission (principal) | CPT/HCPCS: 99212 ==